=== PATIENT | female | born 1990 | race Caucasian/White ===

== ENCOUNTER 2018-05-18 11:20 | Outpatient (REF) | payer SELFPAY ==
[2018-05-19 10:15] LABS: HBs Antibody, Quant 10.9 mIU/mL; Hepatitis B Surface Ab Positive
[2018-05-19 11:31] LABS: Rubella IgG Ab (UVM) Positive; Varicella IgG Antibody Negative
[2018-05-19 12:32] LABS: Measles IgG Antibody Positive; Mumps Antibody IgG Positive (Negative)
[2018-05-20 14:17] LABS: TB Interpretation Negative (NEGAT)
== END 2018-05-18 11:40 ==
LOC: LBO 11:20
PROVIDERS: PCP Nurse Practitioner Family
DX: Z02.1 Encounter for pre-employment examination (principal); Z01.84 Encounter for antibody response examination
CPT/HCPCS: 36415; 86706; 86787; 86480; 86735; 86762; 86765

== ENCOUNTER 2018-05-25 17:50 | Emergency (ER) | payer MEDICAID, SELFPAY ==
[2018-05-25 18:12] VITALS: BP 123/84; PULSE 72; RESP 14; TEMP 36.9; O2SAT 99
[2018-05-25 18:35] LABS: Bilirubin Negative (Negative); Blood Small (Negative); Clarity Clear; Glucose Negative (Negative); Ketones Negative (Negative); Leukocyte Esterase Negative (Negative); Nitrite Negative (Negative); Specific Gravity 1.025 (1.005-1.025); Urobilinogen 0.2 EU/dL (Up TO 0.2)
[2018-05-25 18:42] LABS: Bacteria Rare HPF (Negative); C & S Indicated? No; Casts Negative LPF (Negative); Crystals Negative HPF (Negative); Epithelial Cells Rare HPF (Negative); Mucus Negative (Negative); Other Cells Negative (Negative); RBC 0-2 (0-2); WBC 0-2 HPF (0-5)
--- NOTE | 2018-05-25 19:20 | DI.CT_ITS ---
SYMPTOM/DIAGNOSIS: RLQ PAIN ABDOMEN AND PELVIC CT: No priors for comparison. The visualized lung bases are clear. The liver is normal in size. There is a 1.5 cm. hypodense lesion in the left lobe of the liver. It is nonspecific. This may represent a cyst. Follow up on a non emergent basis is recommended. No other hepatic lesions are seen. The portal and superior mesenteric veins are patent. The gallbladder is negative. No biliary ductal dilatation is seen. The pancreas, spleen and adrenal glands are unremarkable. The kidneys show normal and symmetric enhancement. No evidence of a solid renal mass or obstruction is present. The urinary bladder is intact. The reproductive organs are unremarkable. The abdominal aorta is of normal caliber. No significant abdominal or pelvic adenopathy, ascites or pneumoperitoneum is present. Incidental note is made of a retro-aortic left renal vein. The bowel is unremarkable. There is a normal appendix present. Degenerative changes are seen in the spine. IMPRESSION: No evidence of an acute abdomen.
--- NOTE | 2018-05-25 19:36 | W.ED.GENAD ---
Discharge Plan Disposition Patient Disposition: HOME Condition: Good Discharge Details Chief Complaint: Abd Prob Clinical Impression: Abdominal pain Primary Care Provider: Estefani Gray ED Provider: rC Linder Home Meds and New Rx's Prescriptions: Continue multivitamin [Daily Multi-Vitamin] 1 EACH tablet 1 ea PO DAILY RF: 0 omega 3-fbo-dsl-fish oil [Fish Oil] 1 EACH capsule,delayed release(DR/EC) 1 ea PO DAILY RF: 0 lactobacillus combo no.11 [Probiotic] 1 EACH capsule, sprinkle 1 ea PO DAILY RF: 0 Discharge Instructions Instructions: Abdominal Pain (ED) Additional Instructions: He may utilize ndcf-ogm-djtunyt pain medication as needed for discomfort. Given CT findings suggestive of possible moderate stool burden it is recommended that you use sfip-brc-dxgacvd Metamucil and/or stool softener/laxatives as needed to see if this helps with your symptoms. Referrals: Estefani Gray, FRONT OFFICE ASSOCIATE [Primary Care Provider] - (Follow-up with your primary care provider as needed for reassessment or if not improving over the next week) Medical Decision Making Patient presenting to the emergency department for right lower quadrant pain. Patient states pain started this morning. She does state that she was lifting moving things this weekend but this morning started noticing some bloating and discomfort with pain to touch of right lower quadrant. Patient has associated symptom of nausea but otherwise denies any other medical complaint. Physical exam is positive for right lower quadrant tenderness otherwise exam is unremarkable. Plan to check labs and CT image. Patient denies any need of medication at this time. Review of labs is unremarkable and show no significant leukocytosis and otherwise nondiagnostic findings. Review of CT imaging shows no evidence for acute appendicitis, no bowel obstruction or perforation, no intra-abdominal pathology is noted per radiologist findings. Upon my review there does seem to be a moderate stool burden, especially in the right lower quadrant, but I agree with no signs of obstruction. Discussed with patient use of stool softeners, mild gentle laxatives, and daily Metamucil to see if this helps resolve her symptoms. Otherwise she was encouraged to use kdxw-xdi-ezfupso pain medication as needed for any further discomfort. Patient to return for any new or worsening symptoms. After discussion of diagnosis and plan of care patient has no further needs, questions, or concerns and states clear understanding to return to the emergency department for any worsening symptoms. Lab Data Lab results reviewed: Yes I reviewed the patient's lab results. HPI General Mode of arrival: ambulatory. Date/Time Provider Initiated Documentation: 05/25/18 18:47. Limitations to Documentation: no limitations. Information obtained by: patient and RN notes reviewed. History of Present Illness 27 year old F presents to the emergency department with the chief complaint of Abd pain, with intensity rated at 2. Quality is described as aching, and is localized to the abdomen and right. Patient started experiencing this hour(s) (10) and it has been constant. No relieving factors improve symptom(s), No exacerbating factors reported . Patient did receive the following treatments prior to arrival, none Related Data Home Medications Medication Instructions Recorded Confirmed lactobacillus combo no.11 1 ea PO DAILY cap.sprink 10/13/17 05/25/18 [Probiotic] multivitamin [Daily Multi-Vitamin] 1 ea PO DAILY 10/13/17 05/25/18 omega 5-tyg-bxj-fish oil [Fish Oil] 1 ea PO DAILY 10/13/17 05/25/18 Allergies Allergy/AdvReac Type Severity Reaction Status Date / Time erythromycin base Allergy Unknown Skin Rash Unverified 05/25/18 18:18 latex Allergy Unknown Skin Rash Unverified 05/25/18 18:18 penicillin G Allergy Unknown Skin Rash Unverified 05/25/18 18:18 General Stated Complaint: Abd Prob ROSALES: 3 Review of Systems Constitutional Denies chills, Denies fever(s) and Denies malaise Cardiovascular Denies chest pain Respiratory Denies cough Gastrointestinal Reports as per HPI, Reports abdominal pain, Denies diarrhea, Reports nausea and Denies vomiting Genitourinary Denies urinary frequency, Denies dysuria, Denies pelvic pain and Denies vaginal discharge PFSH Family History Mother Diabetes Kidney disease Father Substance abuse Gout Colon polyps Grandmother Diabetes Other COPD (chronic obstructive pulmonary disease) Medical History IFG (impaired fasting glucose) (Chronic 10/30/17) ADHD (attention deficit hyperactivity disorder) Depression Kidney stone Lyme disease Social History Smoking/Tobacco Use Status: Never Surgical History Tonsillectomy and adenoidectomy Exam Const General: cooperative, healthy appearing, comfortable, no acute distress and not ill appearing Orientation: alert, awake and oriented x3 Resp Effort & Inspection: normal respiratory effort and able to speak in complete sentences Auscultation: clear to auscultation bilaterally Cardio Rate: regular rate Rhythm: regular rhythm Heart Sounds: S1 normal and S2 normal GI Inspection: normal to inspection Palpation: soft, no hepatosplenomegaly, not firm, no guarding, no masses, no pulsatile masses, not rigid, no splenomegaly and tender in the RLQ, at McBurney's point and suprapubicly; Madrigal's sign negative, psoas sign negative and Rovsing's sign negative Auscultation: normal bowel sounds Back/Spine/Pelvis Back: no CVA tenderness Neuro General: alert, awake, oriented x3, gait normal and moves all extremities Course Vital Signs Temperature 36.9 C 05/25/18 18:12 Pulse 72 05/25/18 18:12 Respiratory Rate 14 05/25/18 18:12 Blood Pressure 123/84 05/25/18 18:12 Pulse Oximetry 99 05/25/18 18:12 Temperature 36.9 C 05/25/18 18:12 Temperature Source Skin 05/25/18 18:12 Pulse 72 05/25/18 18:12 Respiratory Rate 14 05/25/18 18:12 Respiratory Effort Non-Labored 05/25/18 18:30 Blood Pressure 123/84 05/25/18 18:12 Blood Pressure Position Sitting 05/25/18 18:12 Pulse Oximetry 99 05/25/18 18:12 Oxygen Delivery Method Room Air 05/25/18 18:12 Oxygen Flow Rate 0 05/25/18 18:12 Pain Level 3 05/25/18 18:12 Lab/Test Results Lab/Test Results: Laboratory Tests Range/Units 05/25/18 18:25 Urine Color (Yellow) Yellow Urine Clarity Clear Urine pH (5-8) 7.0 Ur Specific [place] (1.005-1.025) 1.025 Urine Protein (Negative) mg/dL Negative Urine Ketones (Negative) mg/dL Negative Urine Blood (Negative) Small H Urine Nitrite (Negative) Negative Urine Bilirubin (Negative) Negative Urine Urobilinogen (Up TO 0.2) EU/dL 0.2 Ur Leukocyte Esterase (Negative) Negative Urine RBC (0-2) 0-2 Urine WBC (0-5) HPF 0-2 Ur Epithelial Cells (Negative) HPF Rare Urine Crystals (Negative) HPF Negative Urine Bacteria (Negative) HPF Rare Urine Casts (Negative) LPF Negative Urine Mucus (Negative) Negative Urine Other (Negative) Negative Ur Culture Indicated? No Urine Glucose (Negative) mg/dL Negative POC- Test(urine) Negative
--- NOTE | 2018-05-25 19:39 | ED.GENADUL_ITS ---
Discharge Plan Disposition Patient Disposition: HOME Condition: Good Discharge Details Chief Complaint: Abd Prob Clinical Impression: Abdominal pain Primary Care Provider: Estefani Gray ED Provider: Cr Linder Home Meds and New Rx's Prescriptions: Continue multivitamin [Daily Multi-Vitamin] 1 EACH tablet 1 ea PO DAILY RF: 0 omega 6-tcd-nnn-fish oil [Fish Oil] 1 EACH capsule,delayed release(DR/EC) 1 ea PO DAILY RF: 0 lactobacillus combo no.11 [Probiotic] 1 EACH capsule, sprinkle 1 ea PO DAILY RF: 0 Discharge Instructions Instructions: Abdominal Pain (ED) Additional Instructions: He may utilize nxge-vkp-tmmftlm pain medication as needed for discomfort. Given CT findings suggestive of possible moderate stool burden it is recommended that you use vply-vps-bxbihrz Metamucil and/or stool softener/ laxatives as needed to see if this helps with your symptoms. Referrals: Estefani Gray, RECREATIONAL THERAPY TECHNICIAN [Primary Care Provider] - (Follow-up with your primary care provider as needed for reassessment or if not improving over the next week) Medical Decision Making Patient presenting to the emergency department for right lower quadrant pain. Patient states pain started this morning. She does state that she was lifting moving things this weekend but this morning started noticing some bloating and discomfort with pain to touch of right lower quadrant. Patient has associated symptom of nausea but otherwise denies any other medical complaint. Physical exam is positive for right lower quadrant tenderness otherwise exam is unremarkable. Plan to check labs and CT image. Patient denies any need of medication at this time. Review of labs is unremarkable and show no significant leukocytosis and otherwise nondiagnostic findings. Review of CT imaging shows no evidence for acute appendicitis, no bowel obstruction or perforation, no intra-abdominal pathology is noted per radiologist findings. Upon my review there does seem to be a moderate stool burden, especially in the right lower quadrant, but I agree with no signs of obstruction. Discussed with patient use of stool softeners, mild gentle laxatives, and daily Metamucil to see if this helps resolve her symptoms. Otherwise she was encouraged to use rmto-mbm-snvsjcn pain medication as needed for any further discomfort. Patient to return for any new or worsening symptoms. After discussion of diagnosis and plan of care patient has no further needs, questions, or concerns and states clear understanding to return to the emergency department for any worsening symptoms. Lab Data Lab results reviewed: Yes I reviewed the patient's lab results. HPI General Mode of arrival: ambulatory . Date/Time Provider Initiated Documentation: 05/25/18 18:47 . Limitations to Documentation: no limitations . Information obtained by: patient and RN notes reviewed . History of Present Illness 27 year old F presents to the emergency department with the chief complaint of Abd pain, with intensity rated at 2. Quality is described as aching, and is localized to the abdomen and right. Patient started experiencing this hour( s) (10) and it has been constant. No relieving factors improve symptom(s), No exacerbating factors reported . Patient did receive the following treatments prior to arrival, none Related Data Home Medications Medication Instructions Recorded Confirmed lactobacillus combo no.11 1 ea PO DAILY cap.sprink 10/13/17 05/25/18 [Probiotic] multivitamin [Daily Multi-Vitamin] 1 ea PO DAILY 10/13/17 05/25/18 omega 6-nlc-gnh-fish oil [Fish Oil] 1 ea PO DAILY 10/13/17 05/25/18 Allergies Allergy/AdvReac Type Severity Reaction Status Date / Time erythromycin base Allergy Unknown Skin Rash Unverified 05/25/18 18:18 latex Allergy Unknown Skin Rash Unverified 05/25/18 18:18 penicillin G Allergy Unknown Skin Rash Unverified 05/25/18 18:18 General Stated Complaint: Abd Prob ROSALES: 3 Review of Systems Constitutional Denies chills, Denies fever(s) and Denies malaise Cardiovascular Denies chest pain Respiratory Denies cough Gastrointestinal Reports as per HPI, Reports abdominal pain, Denies diarrhea, Reports nausea and Denies vomiting Genitourinary Denies urinary frequency, Denies dysuria, Denies pelvic pain and Denies vaginal discharge PFSH Family History Mother Diabetes Kidney disease Father Substance abuse Gout Colon polyps Grandmother Diabetes Other COPD (chronic obstructive pulmonary disease) Medical History IFG (impaired fasting glucose) (Chronic 10/30/17) ADHD (attention deficit hyperactivity disorder) Depression Kidney stone Lyme disease Social History Smoking/Tobacco Use Status: Never Surgical History Tonsillectomy and adenoidectomy Exam Const General: cooperative, healthy appearing, comfortable, no acute distress and not ill appearing Orientation: alert, awake and oriented x3 Resp Effort & Inspection: normal respiratory effort and able to speak in complete sentences Auscultation: clear to auscultation bilaterally Cardio Rate: regular rate Rhythm: regular rhythm Heart Sounds: S1 normal and S2 normal GI Inspection: normal to inspection Palpation: soft, no hepatosplenomegaly, not firm, no guarding, no masses, no pulsatile masses, not rigid, no splenomegaly and tender in the RLQ, at McBurney' s point and suprapubicly; Madrigal's sign negative, psoas sign negative and Rovsing's sign negative Auscultation: normal bowel sounds Back/Spine/Pelvis Back: no CVA tenderness Neuro General: alert, awake, oriented x3, gait normal and moves all extremities Course Vital Signs Temperature 36.9 C 05/25/18 18:12 Pulse 72 05/25/18 18:12 Respiratory Rate 14 05/25/18 18:12 Blood Pressure 123/84 05/25/18 18:12 Pulse Oximetry 99 05/25/18 18:12 Temperature 36.9 C 05/25/18 18:12 Temperature Source Skin 05/25/18 18:12 Pulse 72 05/25/18 18:12 Respiratory Rate 14 05/25/18 18:12 Respiratory Effort Non-Labored 05/25/18 18:30 Blood Pressure 123/84 05/25/18 18:12 Blood Pressure Position Sitting 05/25/18 18:12 Pulse Oximetry 99 05/25/18 18:12 Oxygen Delivery Method Room Air 05/25/18 18:12 Oxygen Flow Rate 0 05/25/18 18:12 Pain Level 3 05/25/18 18:12 Lab/Test Results Lab/Test Results: Laboratory Tests Range/Units 05/25/18 18:25 Urine Color (Yellow) Yellow Urine Clarity Clear Urine pH (5-8) 7.0 Ur Specific [place] (1.005-1.025) 1.025 Urine Protein (Negative) mg/dL Negative Urine Ketones (Negative) mg/dL Negative Urine Blood (Negative) Small H Urine Nitrite (Negative) Negative Urine Bilirubin (Negative) Negative Urine Urobilinogen (Up TO 0.2) EU/dL 0.2 Ur Leukocyte Esterase (Negative) Negative Urine RBC (0-2) 0-2 Urine WBC (0-5) HPF 0-2 Ur Epithelial Cells (Negative) HPF Rare Urine Crystals (Negative) HPF Negative Urine Bacteria (Negative) HPF Rare Urine Casts (Negative) LPF Negative Urine Mucus (Negative) Negative Urine Other (Negative) Negative Ur Culture Indicated? No Urine Glucose (Negative) mg/dL Negative POC- Test(urine) Negative
[2018-05-25 19:45] LABS: Abs Immature Grans 0.02 k/cumm (0.0-0.09); Absolute Basophil Count 0.05 k/cumm (0.0-0.2); Absolute Eosinophil Count 0.25 k/cumm (0.0-0.7); Absolute Lymphocyte Count 2.97 k/cumm (1.2-3.4); Absolute Monocyte Count 0.61 k/cumm (0.11-0.7); Absolute Neutrophil Count 4.77 k/cumm (1.2-6.7); Basophils % 0.6; Eosinophils % 2.9; HCT 40.2 % (36.0-46.0); HGB 13.7 g/dL (12.0-15.5); Immature Grans % 0.2; Lymphocytes % 34.3; Mean Corp. HGB Concentration 34.1 g/dL (32.0-36.0); Mean Corpuscular Hemoglobin 30.3 pg (27.0-33.0); Mean Corpuscular Volume 88.9 fL (80-95); Mean Platelet Volume 11.6 fL (8.0-11.0); Platelet Count 248 x1000/uL (130-400); RBC 4.52 m/cumm (4.00-5.20); RBC Distribution Width 13.8 % (11.7-14.6); White Blood Cell Count 8.67 k/cumm (4.4-10.8)
[2018-05-25] MEDS: Omnipaque 350 MG/ML 100 ML BTL IJ (19:58)
[2018-05-25 20:08] LABS: ALT 26 U/L (12-78); AST 14 U/L (15-37); Albumin 3.7 g/dL (3.4-5.0); Alkaline Phosphatase 90 U/L (46-116); Anion Gap 6.3 mmol/L (3-11); BUN 15 mg/dL (7-18); Bilirubin, Total 0.3 mg/dL (0.2-1.0); CO2 30.7 mmol/L (21.0-32.0); CREATININE 0.91 mg/dL (0.55-1.02); Calcium 9.5 mg/dL (8.5-10.1); Chloride 103 mmol/L (98-107); Glucose 86 mg/dL (70-100); Lipase 91 U/L (73-393); Sodium 140 mmol/L (136-145); Total Protein 7.3 g/dL (6.4-8.2)
--- NOTE | 2018-05-25 20:54 | DI.VRAD_ITS ---
EXAM: CT Abdomen and Pelvis With Intravenous Contrast EXAM DATE/TIME: 05/25/2018 7:22 PM CLINICAL HISTORY: 27 years old, female; Pain; Abdominal pain; Localized; Right lower quadrant (rlq); Patient HX: Rlq pain TECHNIQUE: Axial computed tomography images of the abdomen and pelvis with intravenous contrast. Coronal and sagittal reformatted images were created and reviewed. COMPARISON: No relevant prior studies available. FINDINGS: Lower thorax: No acute findings. ABDOMEN: Liver: A hypodense lesion within the left hepatic lobe, 9 mm in diameter, possibly cysts. Gallbladder and bile ducts: No calcified stones. No ductal dilation. Pancreas: Unremarkable. No ductal dilation. Spleen: Unremarkable. No splenomegaly. Adrenals: Unremarkable. No mass. Kidneys and ureters: Unremarkable. No hydronephrosis. Stomach and bowel: The bowel is not opacified by oral contrast, evaluation is limited. Appendix: No evidence of appendicitis. PELVIS: Bladder: Unremarkable as visualized. Reproductive: Unremarkable as visualized. ABDOMEN and PELVIS: Intraperitoneal space: No free air. No significant fluid collection. Bones/joints: Degenerative changes within thoracic spine. Degenerative changes within lumbar spine with superior endplate deformities within L3 and L4 vertebral bodies. Soft tissues: The abdomen is obese. Vasculature: No abdominal aortic aneurysm. Lymph nodes: No enlarged lymph nodes. IMPRESSION: No evidence for acute appendicitis. No evidence for bowel obstruction or perforation. No acute intra-abdominal pathology identified. Dictated and Authenticated by: Merritt Walden MD. Ordering:RUBI FLOREZ MD
[2018-05-25 21:19] VITALS: BP 130/88; PULSE 66; RESP 16; TEMP 36.7; O2SAT 100
== END 2018-05-25 21:24 | disposition home or self-care (01) ==
PROVIDERS: Emergency Provider Nurse Practitioner Family; PCP Nurse Practitioner Family
DX: R10.31 Right lower quadrant pain (principal); R11.0 Nausea; R73.01 Impaired fasting glucose
CPT/HCPCS: 36415; 80053; 81025; 83690; 99285; 74177; 81003; 81015; 85025; 99284; J3490

== ENCOUNTER 2019-01-15 09:34 | Outpatient (CLI) | payer OTHER, SELFPAY ==
[2019-01-15 11:55] LABS: ALT 56 U/L (12-78); AST 29 U/L (15-37); Alkaline Phosphatase 89 U/L (46-116); Anion Gap 10.7 mmol/L (3-11); BUN 12 mg/dL (7-18); Bilirubin, Total 0.5 mg/dL (0.2-1.0); CO2 26.3 mmol/L (21.0-32.0); CREATININE 0.79 mg/dL (0.55-1.02); Calcium 9.4 mg/dL (8.5-10.1); Chloride 104 mmol/L (98-107); FREE T4 1.12 ng/dL (0.76-1.46); Glucose 94 mg/dL (70-100); Potassium 4.1 mmol/L (3.5-5.1); Sodium 141 mmol/L (136-145); TSH 0.24 uIU/mL (0.358-3.74); Total Protein 7.3 g/dL (6.4-8.2)
[2019-01-18 16:07] LABS: Vitamin D 25 Total 33.5 ng/ml (30-100)
[2019-01-18 16:10] LABS: Vitamin B12 321 pg/mL (193-986)
== END 2019-01-15 09:54 ==
PROVIDERS: PCP Nurse Practitioner Family; Visit Provider Nurse Practitioner Family
DX: R29.810 Facial weakness (principal); F32.9 Major depressive disorder, single episode, unspecified
CPT/HCPCS: 36415; 80053; 82306; 82607; 83519; 84439; 84443

== ENCOUNTER 2019-01-19 01:48 | Outpatient (CLI) | payer OTHER, SELFPAY ==
[2019-01-19 13:28] LABS: FREE T4 1.23 ng/dL (0.76-1.46)
== END 2019-01-19 02:08 ==
PROVIDERS: PCP Nurse Practitioner Family; Visit Provider Nurse Practitioner Family
DX: R79.89 Other specified abnormal findings of blood chemistry (principal); Z86.39 Personal history of other endocrine, nutritional and metabolic disease; R29.810 Facial weakness
CPT/HCPCS: 36415; 82607; 84439; 84443; 84481

== ENCOUNTER 2019-01-26 02:02 | Outpatient (CLI) | payer OTHER, SELFPAY ==
[2019-01-26 07:56] LABS: HCT 40.4 % (36.0-46.0); HGB 13.9 g/dL (12.0-15.5); Mean Corp. HGB Concentration 34.4 g/dL (32.0-36.0); Mean Corpuscular Hemoglobin 30.5 pg (27.0-33.0); Mean Corpuscular Volume 88.6 fL (80-95); Mean Platelet Volume 11.4 fL (8.0-11.0); Platelet Count 240 x1000/uL (130-400); RBC 4.56 m/cumm (4.00-5.20); White Blood Cell Count 8.96 k/cumm (4.4-10.8)
[2019-01-26 08:41] LABS: ESR 10 MM/HR (0-20)
[2019-01-27 11:54] LABS: Lyme Ab w Rflx to Lyme Confirm Negative
[2019-01-27 18:21] LABS: HSV 1 PCR, Blood Negative (Negative); HSV 2 PCR, Blood Negative (Negative)
== END 2019-01-26 02:22 ==
PROVIDERS: PCP Nurse Practitioner Family; Visit Provider Family Medicine
DX: G51.9 Disorder of facial nerve, unspecified (principal); R53.1 Weakness
CPT/HCPCS: 36415; 85027; 85652; 87529; 86618

== ENCOUNTER 2019-02-04 01:03 | Outpatient (CLI) | payer OTHER, SELFPAY ==
[2019-02-04] MEDS: Normal Saline Flush 10 ML SYR IVP (14:51)
[2019-02-04] MEDS: Gadoterate meglumine 20 ML VIAL 16 ML IVP (14:52)
--- NOTE | 2019-02-04 15:32 | DI.MRI_ITS ---
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 Axial and coronal thin slices through the brainstem were also obtained prior to and following contrast administration. No mass lesion or enhancing lesion is seen in the brain. Ventricular system is normal in appearance. No signal abnormality is identified. Diffusion weighted imaging is within normal limits. Orbital and temporal bone structures appear intact. There is normal flow void in the [place] vasculature. IMPRESSION: Negative brain MRI.
== END 2019-02-04 01:23 ==
PROVIDERS: PCP Nurse Practitioner Family; Visit Provider Family Medicine
DX: G52.9 Cranial nerve disorder, unspecified (principal); G51.0 Bell's palsy
CPT/HCPCS: 70553

== ENCOUNTER 2019-03-13 00:26 | Outpatient (CLI) | payer OTHER, SELFPAY ==
[2019-03-15 11:40] LABS: Lyme Ab w Rflx to Lyme Confirm Negative
[2019-03-15 15:50] LABS: ANA Interpretation Positive (NEGAT); ANA Titer Pattern 1:320 Speckled
[2019-03-16 12:40] LABS: SS-A Antibody 1.8 Units (<20); SS-B (La) Ab, IgG 2.3 Units (<20)
[2019-03-16 17:16] LABS: Anaplasma phagocytophilum Negative (Negative); B. miyamotoi PCR Negative (Negative); Babesia divergens/MO-1 Negative (Negative); Babesia duncani Negative (Negative); Babesia microti Negative (Negative); Ehrlichia chaffeensis Negative (Negative); Ehrlichia ewingii/canis Negative (Negative); Ehrlichia muris eauclairensis Negative (Negative)
== END 2019-03-13 00:46 ==
PROVIDERS: PCP Nurse Practitioner Family; Visit Provider Nurse Practitioner Family
DX: G51.0 Bell's palsy (principal); R29.810 Facial weakness
CPT/HCPCS: 36415; 87798; 86038; 86235; 86618

== ENCOUNTER 2019-03-26 02:41 | Outpatient (CLI) | payer OTHER, SELFPAY ==
[2019-03-29 11:05] LABS: Rheumatoid Factor 10 IU/mL (<12.5)
[2019-03-30 10:43] LABS: dsDNA Ab, IgG <12.3 IU/mL (<30)
[2019-03-30 10:47] LABS: Sm (Smith) Ab, IgG 2.4 Units (<20)
== END 2019-03-26 03:01 ==
PROVIDERS: PCP Nurse Practitioner Family; Visit Provider Nurse Practitioner Family
DX: R76.8 Other specified abnormal immunological findings in serum (principal)
CPT/HCPCS: 36415; 86225; 86235; 86431

== ENCOUNTER 2019-04-14 02:31 | Outpatient (CLI) | payer OTHER, SELFPAY ==
[2019-04-15 12:12] LABS: SS-B (La) Ab, IgG 2.3 Units (<20)
== END 2019-04-14 02:51 ==
PROVIDERS: PCP Nurse Practitioner Family; Visit Provider Otolaryngology Otolaryngology/Facial Plastic Surgery
DX: R13.12 Dysphagia, oropharyngeal phase (principal); R05 Cough; H04.123 Dry eye syndrome of bilateral lacrimal glands
CPT/HCPCS: 36415; 86235

== ENCOUNTER 2019-05-04 07:57 | Outpatient (CLI) | payer OTHER, SELFPAY ==
[2019-05-04 13:23] LABS: Creatine Kinase 52 U/L (26-192)
[2019-05-05 13:09] LABS: IgA 183 mg/dL (85-499); Interpretation SEE COMMENTS; Tissue Transglutaminase IgA 5.2 U/mL (<4.0)
[2019-05-21 09:08] LABS: Misc Referral (MAYO) See Comments
== END 2019-05-04 08:17 ==
PROVIDERS: PCP Nurse Practitioner Family; Visit Provider Nurse Practitioner Family
DX: R13.10 Dysphagia, unspecified (principal)
CPT/HCPCS: 36415; 82550; 82784; 83516; 83520; 86235

== ENCOUNTER 2019-05-07 00:18 | Outpatient (CLI) | payer OTHER, SELFPAY ==
--- NOTE | 2019-05-07 11:00 | DI.RAD_ITS ---
EXAM: XR CHEST 2V PA LATERAL INDICATION: R13.10 DYSPHAGIA. COMPARISON: CHEST 2 VIEWS PA,LAT from 12/10/2017 TECHNIQUE: 2D digital imaging was performed. FINDINGS: The lungs are well expanded and free of infiltrate. There is no evidence of a pleural effusion. The heart is not enlarged. The hilar structures mediastinum and tracheal air column are intact. IMPRESSION: No evidence of acute cardiopulmonary disease.
== END 2019-05-07 00:38 ==
PROVIDERS: PCP Nurse Practitioner Family; Visit Provider Nurse Practitioner Family
DX: R13.10 Dysphagia, unspecified (principal)
CPT/HCPCS: 71046

== ENCOUNTER 2019-05-27 11:47 | Outpatient (CLI) | payer OTHER, SELFPAY ==
--- NOTE | 2019-05-27 12:05 | NUR.NOTE ---
Addendum entered by Yadira Galdamez RN 05/27/19 13:31: 1331 Pt is resting in supine postiton. Spinal fluid was clear. Will monitor vitals for another 1/2 hour. Addendum entered by Yadira Galdamez RN 05/27/19 13:01: 1300 Leticia Dumont administers an MKO melt to help with anxiety. Pt's vital signs are HR 105, RR 21, O2 98% on room air, 149/106. Pt had a difficult time with the first two attempts of the lumbar puncture. Pt will be monitored during and after and documented under vital signs. Original Note: 05/27/19 1205 Pt brought in and med reconcilliation done. Pt to have LP with Leticia Julia RNA. Pt notes that she got bit by a tick last night and there is still a red spot under her right axillary area. Nursing Note:
[2019-05-27] MEDS: Midazolam/Ketamine/Ondansetron (3/25/2MG) 1 TAB 1 EACH SL (13:00)
[2019-05-27 13:07] VITALS: BP 149/79; PULSE 85; RESP 13; O2SAT 99
--- NOTE | 2019-05-27 13:25 | PAPNONF_PTH ---
PATIENT: Ele Kimble LOC: [facility] U#:[id number] AGE/SX: 28/F ROOM: RE05/27/[address]: Leticia Purvis CRNA : 1990 BED: DIS: 05/27/2019 SPEC #: [id number] RECD: 05/27/19 16:02 STATUS: CARLEE REYolie #: [id number] CIERRA: 05/27/19 13:[address]: Leticia Purvis DEPT: [facility] Cytology RECD BY: Jenny Dale ENTERED: 05/27/19 16:04 SP TYPE: DARELL BLANCO DR: TARAS Boyer Tissues: 1 - BODY FLUID CYTO(NOT S/U/N/EM)[facility] Procedures: BODY FLUID CYTO(NOT SPU/UR/NIP/ENDOM)[facility] Comments: [id number] (TOTAL VOLUME = 3 ml's) (SENT FRESH)
[2019-05-27 13:26] VITALS: BP 116/71; PULSE 89; RESP 18; TEMP 37.4; O2SAT 100
[2019-05-27 13:41] VITALS: BP 136/76; PULSE 69; RESP 15; TEMP 37.1; O2SAT 100
[2019-05-27 13:55] VITALS: BP 121/79; PULSE 75; RESP 20; TEMP 37.1; O2SAT 98
== END 2019-05-27 12:07 ==
PROVIDERS: PCP Nurse Practitioner Family; Visit Provider Student in an Organized Health Care Education/Training Program
DX: G51.2 Melkersson's syndrome (principal); R29.810 Facial weakness; R13.10 Dysphagia, unspecified
CPT/HCPCS: 62270; 88104

== ENCOUNTER 2019-05-27 13:41 | Outpatient (REF) | payer OTHER, SELFPAY ==
[2019-05-27 14:44] LABS: Clarity Clear; RBC 99 /mm3 (0-5); Tube # 4; WBC 2 /mm3 (0-5); Xanthochromia Absent
[2019-05-27 14:48] LABS: RBC Tube#1 CSF 1450 /mm3 (0-5)
[2019-05-27 15:30] LABS: Glucose (CSF) 58 mg/dL (40-70); Total Protein (CSF) 24 mg/dL (15-45)
[2019-05-28 14:56] LABS: Albumin, CSF 13.7 mg/dl (<25.1); Albumin, S 4.8 g/dl (3.4-4.9); IgG Index, CSF 0.77 Index; IgG, CSF 1.92 mg/dl (0.0-5.50); IgG/Albumin, CSF 0.14 Ratio; Synthesis Rate, CSF 0.56 mg/24hrs
[2019-05-28 17:09] LABS: VDRL, CSF Negative (Negative)
[2019-05-29 16:53] LABS: CSF Bands 4 bands; CSF Olig Bands Interpretation 0 bands (<4); Serum Bands 4 bands
[2019-05-29 18:21] LABS: Specimen Source CSF
[2019-06-08 13:04] LABS: IgG, S 874 mg/dL
== END 2019-05-27 14:01 ==
LOC: LBN 13:41
PROVIDERS: PCP Nurse Practitioner Family; Visit Provider Otolaryngology Otolaryngology/Facial Plastic Surgery
DX: G51.2 Melkersson's syndrome (principal); R29.810 Facial weakness; R47.1 Dysarthria and anarthria
CPT/HCPCS: 82945; 89050; 89051; 81373; 82040; 82042; 82784; 83916; 84157; 86592; 87070; 87205; 87476

== ENCOUNTER 2019-05-29 13:53 | Emergency (ER) | payer OTHER, SELFPAY ==
[2019-05-29 13:57] VITALS: BP 106/73; PULSE 72; RESP 16; TEMP 36.7; O2SAT 96
--- NOTE | 2019-05-29 13:58 | ED.GENADUL_ITS ---
Discharge Plan Disposition Patient Disposition: HOME Condition: Improving Discharge Details Chief Complaint: Headache Clinical Impression: Headache Primary Care Provider: Princess Moses ED Provider: Nba Teran Home Meds and New Rx's Prescriptions: Continued cholecalciferol (vitamin D3) 4,000 unit capsule 4,000 unit PO DAILY RF: 0 omega-3 fatty acids [Fish Oil Concentrate] 1,000 mg capsule 5,000 mg PO DAILY RF: 0 vitamin B complex [B Complex 1] Tablet 1 tab PO DAILY RF: 0 dextroamphetamine-amphetamine 30 mg capsule,extended release 24hr 30 mg PO DAILY MDD 30mg Qty: 31 RF: 0 prednisone 20 mg tablet 60 mg PO DAILY Qty: 21 RF: 0 Discharge Instructions Instructions: General Headache (ED) Additional Instructions: Home to rest today. Continue small, frequent sips of fluids to maintain hydration. Do not exert yourself heavily. Return to the emergency department for any acute concern. Medical Decision Making 28-year-old female who had outpatient lumbar puncture performed on May 27. She is had a headache that is worse with rising to a standing position since that time. She has not had a fever or vomiting. Her neurologic exam is unremarkable. Probable post dural puncture leak and post LP headache. Given 1 L fluid bolus and IV caffeine. Discussed with anesthesia and patient seen in consultation. By the time of arrival of anesthesia consult, patient with no persistent headache, improved and requesting DC prior to procedure. HPI General Mode of arrival: ambulatory . Date/Time Provider Initiated Documentation: 05/29/19 13:55 . Limitations to Documentation: no limitations . Information obtained by: patient . History of Present Illness 28 year old F presents to the emergency department with the chief complaint of Headache after LP yesterday., described as moderate, Quality is described as dull, Patient reports no radiation. Patient started experiencing this hour(s) and it has been constant. Patient notes no other symptoms.. Patient did receive the following treatments prior to arrival, none Related Data Home Medications Medication Instructions Recorded Confirmed cholecalciferol (vitamin D3) 4,000 4,000 unit PO DAILY 01/01/19 05/29/19 unit capsule omega-3 fatty acids 1,000 mg 5,000 mg PO DAILY cap 02/23/19 05/29/19 capsule vitamin B complex 1 tab PO DAILY 03/22/19 05/29/19 dextroamphetamine-amphetamine ER 30 mg PO DAILY #31 cap MDD 30mg 05/10/19 05/29/19 30 mg 24hr capsule,extend release prednisone 20 mg tablet 60 mg PO DAILY #21 tab 05/10/19 05/29/19 Previous Rx's Medication Instructions Recorded dextroamphetamine-amphetamine ER 30 mg PO DAILY #31 cap MDD 30mg 05/10/19 30 mg 24hr capsule,extend release prednisone 20 mg tablet 60 mg PO DAILY #21 tab 05/10/19 Allergies Allergy/AdvReac Type Severity Reaction Status Date / Time erythromycin base Allergy Unknown Skin Rash Verified 05/29/19 14:02 latex Allergy Unknown Skin Rash Verified 05/29/19 14:02 penicillin G Allergy Unknown Skin Rash Verified 05/29/19 14:02 General ROSALES: 3 Review of Systems Narrative: no fever, no vomiting. 4 systems reviewed and otherwise negative. FORMERLY [facility], [facility] Medical History ADHD (attention deficit hyperactivity disorder) (Chronic) Depressive disorder (Chronic) Generalized anxiety disorder (Chronic) Kidney stone (Resolved) Lagophthalmos (Chronic) Lyme disease (Resolved) Melkersson-Bao syndrome (Acute) Nasolacrimal duct obstruction, bilateral (Chronic) Oropharyngeal dysphagia (Chronic) Vitamin D deficiency (Resolved) Surgical History S/P eye surgery (Inactive 01/14/19) Surgery for nasolacrimal duct obstruction S/P tonsillectomy and adenoidectomy (Inactive) Family History Mother Kidney disease S/p kidney transplant Type 1 diabetes mellitus Hypertension Father Gout Colon polyps Alcohol abuse Maternal Grandfather No problems noted. 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 Pleasant, well groomed, interactive. HEAD: Normocephalic, atraumatic ENT: Mucous membranes moist, oropharynx unremarkable, External ear exam unremarkable EYES: PERRL, EOMI NECK: Full ROM, no LUIS ALBERTO, no menigismus CHEST/RESP: Nontender, clear to auscultation bilateral, no wheeze/rhonchi/rales CARDIOVASCULAR: RRR, no murmur, rub jamie. 2+ Rad pulse bilateral ABDOMEN: Soft, nontender, no mass. +Bowel sounds Back: 2 punctate half millimeter ecchymotic areas that are nontender, midline lumbar. EXT: Full ROM, no edema, no rash Neuro: Grossly normal neurologic exam, conversant, interactive. Psych: Speech fluent, thoughts congruent, affect normal
[2019-05-29] MEDS: Normal Saline 1,000 ML 1000 ML IV (14:30)
[2019-05-29 15:18] VITALS: BP 110/72; PULSE 80; RESP 16; O2SAT 99
== END 2019-05-29 15:29 | disposition home or self-care (01) ==
PROVIDERS: Emergency Provider Emergency Medicine; PCP Nurse Practitioner Family
DX: G97.1 Other reaction to spinal and lumbar puncture (principal)
CPT/HCPCS: 96365; 99284; 99283

== ENCOUNTER 2020-02-29 01:35 | Outpatient (CLI) | payer OTHER, SELFPAY ==
[2020-02-29 14:21] LABS: Kit/Specimen SENT
[2020-02-29 14:42] LABS: Abs Immature Grans 0.03 10^3/uL (0.0-0.06); Absolute Basophil Count 0.07 10^3/uL (0.0-0.2); Absolute Eosinophil Count 0.29 10^3/uL (0.0-0.7); Absolute Lymphocyte Count 2.28 10^3/uL (1.2-3.4); Absolute Monocyte Count 0.61 10^3/uL (0.1-0.8); Absolute Neutrophil Count 4.19 10^3/uL (1.2-6.7); Basophils % 0.9; Eosinophils % 3.9; HCT 43.8 % (36.0-46.0); HGB 14.3 g/dL (11.2-15.7); Immature Grans % 0.4; Lymphocytes % 30.5; MCH 29.7 pg (27.0-33.0); MCHC 32.6 % (32.0-36.0); MCV 90.9 fL (80-95); MPV 11.6 fL (8.0-11.0); Monocytes % 8.2; Neutrophils % 56.1; Nucleated RBC 0 %; Platelet Count 261 10^3/uL (130-400); RBC 4.82 10^6/uL (3.93-5.22); RDW 12.4 % (11.7-14.6); RDW-SD 41.3 fL; WBC 7.47 10^3/uL (4.4-10.8)
[2020-02-29 15:19] LABS: FREE T4 0.94 ng/dL (0.76-1.46)
[2020-02-29 15:57] LABS: Vitamin B12 459 pg/mL (193-986)
[2020-03-01 01:26] LABS: T3,Free 3.8 pg/mL (2.8-5.3)
[2020-03-01 11:26] LABS: IgA 191 mg/dL (85-499); IgG 944 mg/dL (610-1,616); IgM 177 mg/dL (35-242)
[2020-03-02 04:54] LABS: Vitamin D 25 Total 47.2 ng/ml (30-100)
== END 2020-02-29 01:55 ==
PROVIDERS: PCP Naturopath; Visit Provider Naturopath
DX: G51.0 Bell's palsy (principal); E55.9 Vitamin D deficiency, unspecified; R53.83 Other fatigue; F41.9 Anxiety disorder, unspecified; R68.84 Jaw pain; R05 Cough; J30.9 Allergic rhinitis, unspecified
CPT/HCPCS: 36415; 82306; 82784; 82607; 84439; 84443; 84481; 85025

== ENCOUNTER 2020-06-27 03:52 | Outpatient (CLI) | payer OTHER, SELFPAY ==
[2020-06-27 08:37] LABS: HCG Qual (Serum) Positive
== END 2020-06-27 04:12 ==
PROVIDERS: PCP Naturopath; Visit Provider Naturopath
DX: Z32.01 Encounter for pregnancy test, result positive (principal)
CPT/HCPCS: 36415; 84703

== ENCOUNTER 2020-07-08 19:04 | Outpatient (REF) | payer OTHER, SELFPAY ==
[2020-07-08 15:50] LABS: Bilirubin Negative (Negative); Blood Negative (Negative); Clarity Turbid (Clear); Glucose Negative (Negative); Ketones Negative (Negative); Leukocyte Esterase Negative (Negative); Nitrite Negative (Negative); Specific Gravity >= 1.030 (1.005-1.025); Urobilinogen 0.2 EU/dL (Up TO 0.2)
== END 2020-07-08 19:24 ==
LOC: LBN 19:04
PROVIDERS: PCP Naturopath; Visit Provider Nurse Practitioner Family
DX: R35.8 Other polyuria (principal)
CPT/HCPCS: 81003

== ENCOUNTER 2020-08-04 03:43 | Outpatient (CLI) | payer OTHER, SELFPAY ==
[2020-08-04 16:03] LABS: Abs Immature Grans 0.05 10^3/uL (0.0-0.06); Absolute Basophil Count 0.06 10^3/uL (0.0-0.2); Absolute Lymphocyte Count 1.94 10^3/uL (1.2-3.4); Absolute Monocyte Count 0.76 10^3/uL (0.1-0.8); Basophils % 0.5; HCT 40.8 % (36.0-46.0); HGB 14.1 g/dL (11.2-15.7); Immature Grans % 0.4; Lymphocytes % 15.6; MCH 30.4 pg (27.0-33.0); MCHC 34.6 % (32.0-36.0); MCV 87.9 fL (80-95); MPV 10.8 fL (8.0-11.0); Monocytes % 6.1; Neutrophils % 76.4; Nucleated RBC 0 %; Platelet Count 262 10^3/uL (130-400); RBC 4.64 10^6/uL (3.93-5.22); RDW-SD 38.6 fL; WBC 12.43 10^3/uL (4.4-10.8)
[2020-08-04 16:06] LABS: Absolute Eosinophil Count 0.12 10^3/uL (0.0-0.7)
[2020-08-04 16:50] LABS: *AMPHETAMINES SCREEN URINE Negative (Negative); *BARBITURATES SCREEN URINE Negative (Negative); *BENZODIAZEPINES SCREEN URINE Negative (Negative); Cannabinoids THC Negative (Negative); Cocaine Screen,Urine Negative (Negative); METHADONE URINE SCREEN Negative (Negative); OPIATES URINE SCREEN Negative (Negative)
[2020-08-04 16:52] LABS: Tricyclic Antidepressants Negative (Negative)
[2020-08-04 17:00] LABS: TSH (W/Ref FT4) 0.08 uIU/mL (0.36-3.74)
[2020-08-04 17:23] LABS: FREE T4 1.47 ng/dL (0.76-1.46)
[2020-08-07 10:14] LABS: Hepatitis B Surface Ag Negative (Negative)
[2020-08-07 10:49] LABS: Hepatitis C Ab w Rflx HCV PCR Negative (Negative)
[2020-08-07 10:53] LABS: HIV-1/2 Ag & Ab Screen Negative (Negative)
[2020-08-07 11:07] LABS: Varicella IgG Antibody Positive (See Note)
[2020-08-07 11:09] LABS: Rubella IgG Ab (UVM) Positive (See Note)
[2020-08-07 15:58] LABS: Chlamydia Result Negative (Negative); GC Result Negative (Negative)
[2020-08-08 10:45] LABS: Syphilis Total Ab w/Reflex Nonreactive (Nonreactive)
[2020-08-10 14:20] LABS: Buprenorphine Negative; Norbuprenorphine Negative
== END 2020-08-04 04:03 ==
PROVIDERS: PCP Naturopath; Visit Provider Advanced Practice Midwife
DX: Z34.91 Encounter for supervision of normal pregnancy, unspecified, first trimester (principal); Z11.4 Encounter for screening for human immunodeficiency virus [HIV]; Z11.59 Encounter for screening for other viral diseases; Z01.84 Encounter for antibody response examination; Z11.3 Encounter for screening for infections with a predominantly sexual mode of transmission
CPT/HCPCS: 36415; 80307; 86787; 86803; 86850; 86900; 86901; 87340; 87389; 87491; 87591; 84439; 84443; 85025; 86762; 86780; 87086

== ENCOUNTER 2020-08-04 16:54 | Outpatient (REF) | payer OTHER, SELFPAY ==
--- NOTE | 2020-08-04 15:00 | PAPFT_PTH ---
PATIENT: Ele Kimble LOC: [facility] U#:[id number] AGE/SX: 29/F ROOM: RE08/04/[address]: Blas Tenorio RN : 1990 BED: DIS: 08/04/2020 SPEC #: [id number] RECD: 08/04/20 17:42 STATUS: CARLEE REQ #: [id number] CIERRA: 08/04/20 15:[address]: Blas Tenorio DEPT: [facility] Cytology RECD BY: Jenny Dale ENTERED: 08/04/20 17:43 SP TYPE: PAPFT OTHR DR: Nito Castellanos Tissues: 1 - CX/ENDOCX FOR PAP SMEARS Procedures: PAP THIN PREP/UVM Screening Comments: [id number] (UNSATISFACTORY FOR EVALUATION)
== END 2020-08-04 17:14 ==
LOC: LBN 16:54
PROVIDERS: PCP Naturopath; Visit Provider Advanced Practice Midwife
DX: Z12.4 Encounter for screening for malignant neoplasm of cervix (principal); R87.615 Unsatisfactory cytologic smear of cervix
CPT/HCPCS: 88142

== ENCOUNTER 2020-08-18 01:43 | Outpatient (CLI) | payer OTHER, SELFPAY ==
[2020-08-18 08:05] LABS: Glucose,1 Hr (Glucola) 190 mg/dL (80-140)
[2020-08-18 08:42] LABS: Kit/Specimen SENT
[2020-08-19 15:31] LABS: Toxoplasma Ab, IgG Positive (Negative); Toxoplasma Ab, IgM Negative (Negative); Toxoplasma IgG Value 167 IU/mL
[2020-08-23 23:51] LABS: Result Summary NEGATIVE; Specimen WB Whole Blood
[2020-08-29 02:51] LABS: Result Summary NEGATIVE; Specimen WB Whole Blood
[2020-08-29 12:50] LABS: Specimen WB Whole Blood
== END 2020-08-18 02:03 ==
PROVIDERS: Advanced Practice Midwife; PCP Naturopath; Visit Provider Advanced Practice Midwife
DX: Z34.91 Encounter for supervision of normal pregnancy, unspecified, first trimester (principal); Z36.89 Encounter for other specified antenatal screening
CPT/HCPCS: 36415; 81329; 82950; 86652; 81220; 86777; 86778

== ENCOUNTER 2020-09-05 02:39 | Outpatient (CLI) | payer OTHER, SELFPAY ==
[2020-09-05 12:13] LABS: Hemoglobin A1C 4.8 % (<5.7)
[2020-09-05 12:38] LABS: TSH (W/Ref FT4) 0.36 uIU/mL (0.36-3.74)
== END 2020-09-05 02:40 | disposition home or self-care (01) ==
LOC: LBO 02:39
PROVIDERS: PCP Naturopath; Visit Provider Advanced Practice Midwife
DX: O99.282 Endocrine, nutritional and metabolic diseases complicating pregnancy, second trimester (principal); O99.810 Abnormal glucose complicating pregnancy; E05.90 Thyrotoxicosis, unspecified without thyrotoxic crisis or storm; Z3A.14 14 weeks gestation of pregnancy
CPT/HCPCS: 36415; 83036; 84443

== ENCOUNTER 2020-09-18 03:01 | Outpatient (CLI) | payer OTHER, SELFPAY ==
[2020-09-18 09:45] LABS: Glucose 1 Hour 168 mg/dL
[2020-09-18 11:12] LABS: Glucose 3 Hour 90 mg/dL
== END 2020-09-18 03:02 | disposition home or self-care (01) ==
PROVIDERS: PCP Naturopath; Visit Provider Advanced Practice Midwife
DX: O99.810 Abnormal glucose complicating pregnancy (principal)
CPT/HCPCS: 36415; 82951

== ENCOUNTER 2020-09-27 19:30 | Outpatient (REF) | payer OTHER, SELFPAY | END 2020-09-27 19:31 | disposition home or self-care (01) | LOC: LBN 19:30 | PROVIDERS: PCP Naturopath; Visit Provider Advanced Practice Midwife | DX: O26.892 Other specified pregnancy related conditions, second trimester (principal); R10.2 Pelvic and perineal pain | CPT/HCPCS: 87086 ==

== ENCOUNTER 2020-10-04 02:25 | Outpatient (CLI) | payer OTHER, SELFPAY ==
--- NOTE | 2020-10-04 07:15 | DI.US_ITS ---
EXAM: US OB 2-3 TRIMESTER CLINICAL HISTORY: 18 wk anatomy survey,z34.90. TECHNIQUE: Transabdominal obstetrical ultrasound performed. COMPARISON: No exams were available for comparison FINDINGS: Transabdominal obstetrical ultrasound performed. FINDINGS: Number of fetuses: One. position: Varied during the examination. heart rate: 149 bpm. Placental location: Posterior and fundal. No evidence of previa. Amniotic fluid index: Amount of fluid is within normal limits. ANATOMICAL SURVEY: The placental cord insertion site was approximately 6 mm from the edge consi stent with a marginal insertion. Otherwise, the anatomic evaluation was within normal limits. W ithin normal limits. BIOMETRIC DATA: BPD: 3.9cm HC: 15.7cm AC: 13.6cm FL: 2.7cm Cisterna Magna: 2 mm Cerebellum: 1.8 cm Composite Age: 18 weeks 3 days EDC by US: 03/04/2021 Heart Rate: 149BPM IMPRESSION: 1. Single live intrauterine gestation as above. 2. Findings consistent with a marginal placental cord insertion site. 3. Otherwise, normal anatomic evaluation. DATA REPOSITORY:
== END 2020-10-04 02:45 ==
PROVIDERS: PCP Naturopath; Visit Provider Advanced Practice Midwife
DX: Z34.92 Encounter for supervision of normal pregnancy, unspecified, second trimester (principal)
CPT/HCPCS: 76805

== ENCOUNTER 2020-10-04 03:59 | Outpatient (CLI) | payer OTHER, SELFPAY ==
[2020-10-04 13:50] LABS: FREE T4 0.95 ng/dL (0.76-1.46); TSH 0.86 uIU/mL (0.36-3.74)
== END 2020-10-04 04:00 | disposition home or self-care (01) ==
PROVIDERS: PCP Naturopath; Visit Provider Advanced Practice Midwife
DX: O99.282 Endocrine, nutritional and metabolic diseases complicating pregnancy, second trimester (principal); E05.90 Thyrotoxicosis, unspecified without thyrotoxic crisis or storm; Z3A.18 18 weeks gestation of pregnancy
CPT/HCPCS: 36415; 84439; 84443

== ENCOUNTER 2020-10-14 18:30 | Emergency (ER) | payer OTHER, SELFPAY ==
--- NOTE | 2020-10-14 18:34 | NUR.NOTE ---
Nursing Note: Junaid; ,
[2020-10-14 18:42] VITALS: BP 157/101; PULSE 120; RESP 23; TEMP 36.8; O2SAT 100
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
[2020-10-14 19:12] LABS: Abs Immature Grans 0.13 10^3/uL (0.0-0.06); Absolute Basophil Count 0.08 10^3/uL (0.0-0.2); Absolute Lymphocyte Count 2.21 10^3/uL (1.2-3.4); Absolute Monocyte Count 0.72 10^3/uL (0.1-0.8); Basophils % 0.7; Eosinophils % 1.8; HCT 39.7 % (36.0-46.0); HGB 13.3 g/dL (11.2-15.7); Immature Grans % 1.1; Lymphocytes % 18.5; MCH 29.8 pg (27.0-33.0); MCHC 33.5 % (32.0-36.0); MPV 11.1 fL (8.0-11.0); Neutrophils % 71.9; Nucleated RBC 0 %; Platelet Count 238 10^3/uL (130-400); RBC 4.46 10^6/uL (3.93-5.22); RDW 13.1 % (11.7-14.6); RDW-SD 42.1 fL; WBC 11.97 10^3/uL (4.4-10.8)
[2020-10-14 19:18] LABS: Absolute Eosinophil Count 0.22 10^3/uL (0.0-0.7); Absolute Neutrophil Count 8.61 10^3/uL (1.2-6.7)
[2020-10-14 19:25] LABS: ALT 21 U/L (14-59); AST 12 U/L (15-37); Albumin 2.8 g/dL (3.4-5.0); Alkaline Phosphatase 91 U/L (46-116); Anion Gap 10.2 mmol/L (3-11); BUN 11 mg/dL (7-18); Bilirubin, Total 0.2 mg/dL (0.2-1.0); CO2 23.8 mmol/L (21.0-32.0); CREATININE 0.6 mg/dL (0.55-1.02); Calcium 9.5 mg/dL (8.5-10.1); Chloride 105 mmol/L (98-107); Glucose 96 mg/dL (74-106); Potassium 3.7 mmol/L (3.5-5.1); Sodium 139 mmol/L (136-145); Total Protein 6.7 g/dL (6.4-8.2)
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
[2020-10-14] MEDS: Acetaminophen 500 MG TAB 1000 MG PO (20:07)
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
== END 2020-10-14 20:10 | disposition home or self-care (01) ==
LOC: ER 19:46
PROVIDERS: Emergency Provider Emergency Medicine; PCP Naturopath
DX: S30.1XXA Contusion of abdominal wall, initial encounter (principal); V43.62XA Car passenger injured in collision with other type car in traffic accident, initial encounter; Z3A.20 20 weeks gestation of pregnancy
CPT/HCPCS: 80053; 86900; 86901; 99252; 99284; 71045; 85025

== ENCOUNTER 2020-11-14 02:19 | Outpatient (CLI) | payer OTHER, SELFPAY ==
[2020-11-15 12:50] LABS: COVID-19 RT-PCR UVMMC Result Negative (Negative)
== END 2020-11-14 02:20 | disposition home or self-care (01) ==
LOC: LBO 02:19
PROVIDERS: PCP Naturopath; Visit Provider Naturopath
DX: Z20.822 Contact with and (suspected) exposure to COVID-19 (principal)
CPT/HCPCS: U0003

== ENCOUNTER 2020-12-05 03:36 | Outpatient (CLI) | payer OTHER, SELFPAY ==
[2020-12-05 08:15] LABS: HCT 36.6 % (36.0-46.0); HGB 12.6 g/dL (11.2-15.7); MCH 30.2 pg (27.0-33.0); MCHC 34.4 % (32.0-36.0); MCV 87.8 fL (80-95); MPV 11.4 fL (8.0-11.0); Platelet Count 207 10^3/uL (130-400); RBC 4.17 10^6/uL (3.93-5.22); RDW 12.9 % (11.7-14.6); RDW-SD 41.2 fL; WBC 10.23 10^3/uL (4.4-10.8)
[2020-12-05 08:35] LABS: TSH (W/Ref FT4) 0.61 uIU/mL (0.36-3.74)
[2020-12-05 10:06] LABS: Glucose 1 Hour 214 mg/dL
[2020-12-05 11:52] LABS: Glucose 3 Hour 69 mg/dL
[2020-12-07 01:14] LABS: Vitamin D 25 Total 33.5 ng/mL (30-100)
== END 2020-12-05 03:37 | disposition home or self-care (01) ==
LOC: LBO 03:36
PROVIDERS: PCP Naturopath; Visit Provider Advanced Practice Midwife
DX: O99.282 Endocrine, nutritional and metabolic diseases complicating pregnancy, second trimester (principal); O24.410 Gestational diabetes mellitus in pregnancy, diet controlled; E05.90 Thyrotoxicosis, unspecified without thyrotoxic crisis or storm; Z3A.26 26 weeks gestation of pregnancy
CPT/HCPCS: 36410; 82306; 85027; 82951; 84443

== ENCOUNTER 2020-12-29 04:08 | Outpatient (CLI) | payer OTHER, SELFPAY ==
--- NOTE | 2020-12-29 08:00 | DI.US_ITS ---
Exam(s) US OB YING WEIGHT EXAM: US OB YING WEIGHT CLINICAL HISTORY: Size > dates,gest diabetes,O24.19, to [facility] after. TECHNIQUE: Transabdominal obstetrical ultrasound performed. COMPARISON: US US OB 2-3 TRIMESTER from 10/04/2020 FINDINGS: Transabdominal obstetrical ultrasound performed. FINDINGS: Number of fetuses: One. position: Cephalic. Placental location: Fundal. No evidence of previa. Marginal umbilical cord insertion site which is 1.9 cm from the placental edge. BIOMETRIC DATA: BPD: 78 mm = 31 weeks 2 days HC: 286 mm = 31 weeks 3 days AC: 268 mm = 30 weeks 6 days FL: 56 mm = 29 weeks 3 days EFW: 1593 grms 46% Composite Age: 30 weeks 5 days EDC: 03/04/2021 Heart Rate: 149BPM Amniotic fluid index: 21.9 cm. Visually, amount of fluid is within normal limits. IMPRESSION: 1. Single live intrauterine gestation as above. 2. There is a marginal insertion site of the umbilical cord. It is located 1.9 cm from the placental edge. 3. Estimated weight is 1593gms. 4. Amniotic fluid index is 21.9 cm. Visually within normal limits. DATA REPOSITORY:
--- NOTE | 2021-01-08 14:28 | W.DIABETESNO ---
Date of service: 01/08/21 Time of Service: 14:28 Diabetes Note NOTE: Spoke to Aaron on phone. She reports that she is starting NPH insulin 4 u AM and PM due to increase in her fasting blood sugars. Reviewed importance of QID finger sticks. Reviewed diet oriented questions and concerns and provided meal plan examples. Aaron will start using roni called No Chains to track her macronutrient at meals. Goal is to follow 175-200 g carbohydrate diet with 60-70 g protein with emphasis on complex carbs, lean protein, non starchy vegetables and healthy fats. Encouraged daily 45-60 min walk. Will continue to be resource for patient during her . Time Spent in Nutritional Counseling and Treatment: 20
== END 2020-12-29 04:28 ==
PROVIDERS: PCP Naturopath; Visit Provider Obstetrics & Gynecology
DX: O24.410 Gestational diabetes mellitus in pregnancy, diet controlled (principal); O26.843 Uterine size-date discrepancy, third trimester; Z3A.30 30 weeks gestation of pregnancy
CPT/HCPCS: 76816

== ENCOUNTER 2021-01-12 08:01 | Outpatient (CLI) | payer OTHER, SELFPAY ==
[2021-01-12 09:19] VITALS: BP 126/86; PULSE 112; TEMP 36.5
[2021-01-12 09:27] VITALS: BP 126/86; PULSE 112
--- NOTE | 2021-01-12 09:52 | W.OBNST ---
Date of service: 01/12/21 Time of Service: 09:52 NST Evaluation Reason for NST Reasons for Nonstress Test: GDM-INSULIN Gestational Age Gestational Age in Weeks and Days: 33 Weeks and 0Days Test and Monitor Explained Test/Monitor Explained: Test Explained, Monitor Explained and Patient Verbalized Understanding Vital Signs Blood Pressure: 126/86 Pulse: 112 Temperature: 97.7 F Urine Results Urine Protein: Negative Urine Ketones: Positive Urine Glucose: Negative Urine Blood: Negative NST Information Date on Monitor: 01/12/21 Time on Monitor: 09:24 Date off Monitor: 01/12/21 Time off Monitor: 09:45 Total Time on Monitor: 21 NST Interventions: PO Hydration NST Evaluation Patient States Movement: Present FHR Baseline: 135 Variability: Moderate 6-25 bpm Accelerations: 15x15 Decelerations: None NST Results: Reactive Note NST Note Note: Reactive NST. Category 1 strip. Follow-up as scheduled. Continue care. NST Reviewed and Verified by: Cece Smallwood
[2021-01-12 09:53] VITALS: BP 126/86; PULSE 112; TEMP 36.5
== END 2021-01-12 09:51 | disposition home or self-care (01) ==
LOC: BCD 08:05 → OBS 09:10
PROVIDERS: PCP Naturopath; Visit Provider Obstetrics & Gynecology
DX: O24.414 Gestational diabetes mellitus in pregnancy, insulin controlled (principal); Z3A.33 33 weeks gestation of pregnancy
CPT/HCPCS: 59025

== ENCOUNTER 2021-01-22 01:00 | Outpatient (CLI) | payer OTHER, SELFPAY ==
[2021-01-22 01:06] VITALS: BP 113/69; PULSE 94; RESP 96; TEMP 37; O2SAT 16
[2021-01-22 02:23] LABS: ALT 30 U/L (14-59); AST 23 U/L (15-37); Albumin 2.5 g/dL (3.4-5.0); Alkaline Phosphatase 121 U/L (46-116); Amylase 86 U/L (25-115); Anion Gap 12.4 mmol/L (3-11); BUN 10 mg/dL (7-18); Bilirubin, Total 0.2 mg/dL (0.2-1.0); CO2 21.6 mmol/L (21.0-32.0); CREATININE 0.6 mg/dL (0.55-1.02); Calcium 8.6 mg/dL (8.5-10.1); Chloride 105 mmol/L (98-107); Glucose 104 mg/dL (74-106); Lipase 96 U/L (73-393); Potassium 3.5 mmol/L (3.5-5.1); Sodium 139 mmol/L (136-145); Total Protein 6.1 g/dL (6.4-8.2)
== END 2021-01-22 02:42 | disposition home or self-care (01) ==
LOC: OBS 01:37 → BCD 01-23 14:45
PROVIDERS: PCP Naturopath; Visit Provider Obstetrics & Gynecology Gynecology
DX: O26.893 Other specified pregnancy related conditions, third trimester (principal); Z3A.33 33 weeks gestation of pregnancy; O24.414 Gestational diabetes mellitus in pregnancy, insulin controlled; R10.11 Right upper quadrant pain; R11.2 Nausea with vomiting, unspecified
CPT/HCPCS: 36415; 80053; 83690; 82150; G0378

== ENCOUNTER 2021-01-22 10:23 | Outpatient (CLI) | payer OTHER, SELFPAY ==
[2021-01-22 13:04] VITALS: BP 121/81; PULSE 98; TEMP 36.9
[2021-01-22 13:15] VITALS: BP 121/81; PULSE 98
--- NOTE | 2021-01-22 14:02 | W.OBNST ---
Date of service: 01/22/21 Time of Service: 14:02 NST Evaluation Reason for NST Reasons for Nonstress Test: GDM-INSULIN Gestational Age Gestational Age in Weeks and Days: 34 Weeks and 3Days Test and Monitor Explained Test/Monitor Explained: Test Explained, Monitor Explained and Patient Verbalized Understanding Vital Signs Blood Pressure: 121/81 Pulse: 98 Temperature: 98.4 F Urine Results Urine Protein: Negative Urine Ketones: Negative Urine Glucose: Negative Urine Blood: Positive NST Information Date on Monitor: 01/22/21 Time on Monitor: 13:08 Date off Monitor: 01/22/21 Time off Monitor: 13:44 Total Time on Monitor: 36 NST Interventions: PO Hydration Contraction Frequency: none NST Evaluation Patient States Movement: Present FHR Baseline: 135 Variability: Moderate 6-25 bpm Accelerations: 15x15 Decelerations: None NST Results: Reactive Note NST Note Note: Patient seen in the center for nonstress testing. She is an insulin requiring gestational diabetic. She currently has good control. She was seen last night due to upper epigastric discomfort after eating fried chicken. She states that discomfort has resolved. Her vital signs are stable. Blood sugars were reviewed. She will continue to have weekly nonstress testing until 36 weeks then I will increase to twice weekly. She will have growth growth ultrasound and group B strep culture at 36 weeks. She will be seen back in 1 week NST Reviewed and Verified by: Cece Smallwood
[2021-01-22 14:03] VITALS: BP 121/81; PULSE 98; TEMP 36.9
== END 2021-01-22 14:20 | disposition home or self-care (01) ==
LOC: BCD 10:24 → OBS 12:56
PROVIDERS: PCP Naturopath; Visit Provider Obstetrics & Gynecology
DX: O24.414 Gestational diabetes mellitus in pregnancy, insulin controlled (principal); Z3A.34 34 weeks gestation of pregnancy
CPT/HCPCS: 59025

== ENCOUNTER 2021-01-30 07:23 | Outpatient (CLI) | payer OTHER, SELFPAY ==
[2021-01-30 11:05] VITALS: BP 125/78; PULSE 105
--- NOTE | 2021-01-30 12:31 | W.OBNST ---
Date of service: 01/30/21 Time of Service: 12:32 NST Evaluation Gestational Age Gestational Age in Weeks and Days: 34 Weeks and 3Days Note NST Note Note: Patient was seen on the center for scheduled nonstress testing. Baby is moving and active. She is category 1 strip. She has an occasional irregular contraction. We did review her blood sugars. She has been having some elevated 1 hour postprandials as well as an occasional fasting which is elevated. She will have her insulin increased to 8 units of NPH in the morning and 8 units of NPH in the evening. She will have a repeat nonstress test on Friday with a physician visit. NST Reviewed and Verified by: Cece Smallwood
== END 2021-01-30 11:51 | disposition home or self-care (01) ==
LOC: BCD 07:26 → OBS 02-08 15:39
PROVIDERS: PCP Naturopath; Visit Provider Obstetrics & Gynecology
DX: O24.414 Gestational diabetes mellitus in pregnancy, insulin controlled (principal); Z3A.34 34 weeks gestation of pregnancy; Z79.4 Long term (current) use of insulin
CPT/HCPCS: 59025

== ENCOUNTER 2021-02-02 07:59 | Outpatient (CLI) | payer OTHER, SELFPAY ==
[2021-02-02 11:16] VITALS: BP 112/69; PULSE 105; TEMP 36.7
[2021-02-02 11:22] VITALS: BP 112/69; PULSE 105
--- NOTE | 2021-02-02 12:27 | W.OBNST ---
Date of service: 02/02/21 Time of Service: 12:28 NST Evaluation Reason for NST Reasons for Nonstress Test: GDM-INSULIN Gestational Age Gestational Age in Weeks and Days: 36 Weeks and 0Days Test and Monitor Explained Test/Monitor Explained: Test Explained, Monitor Explained and Patient Verbalized Understanding Vital Signs Blood Pressure: 112/69 Pulse: 105 Temperature: 98.1 F Urine Results Urine Protein: Negative Urine Ketones: Negative Urine Glucose: Negative Urine Blood: Negative NST Information Date on Monitor: 02/02/21 Time on Monitor: 11:17 Date off Monitor: 02/02/21 Time off Monitor: 11:38 Total Time on Monitor: 21 NST Interventions: PO Hydration NST Evaluation Patient States Movement: Present FHR Baseline: 135 Variability: Moderate 6-25 bpm Accelerations: 15x15 Decelerations: None NST Results: Reactive Note NST Note Note: I reviewed patient's CBGs. No plans for insulin dose adjustment at this time. We will continue twice weekly NSTs. [facility] NST Reviewed and Verified by: Ivy Kyle
[2021-02-02 12:28] VITALS: BP 112/69; PULSE 105; TEMP 36.7
== END 2021-02-02 11:40 | disposition home or self-care (01) ==
LOC: BCD 08:02 → OBS 11:06
PROVIDERS: PCP Naturopath; Visit Provider Obstetrics & Gynecology Gynecology
DX: O24.414 Gestational diabetes mellitus in pregnancy, insulin controlled (principal); Z3A.36 36 weeks gestation of pregnancy
CPT/HCPCS: 59025

== ENCOUNTER 2021-02-02 13:31 | Outpatient (REF) | payer OTHER, SELFPAY ==
[2021-02-02 14:23] LABS: *AMPHETAMINES SCREEN URINE Negative (Negative); *BARBITURATES SCREEN URINE Negative (Negative); *BENZODIAZEPINES SCREEN URINE Negative (Negative); Cannabinoids THC Negative (Negative); Cocaine Screen,Urine Negative (Negative); METHADONE URINE SCREEN Negative (Negative); OPIATES URINE SCREEN Negative (Negative)
[2021-02-02 14:27] LABS: Tricyclic Antidepressants Negative (Negative)
[2021-02-07 10:03] LABS: Buprenorphine Negative ng/mL (Cutoff: 5.0); Norbuprenorphine Negative ng/mL (Cutoff: 2.5)
== END 2021-02-02 13:32 | disposition home or self-care (01) ==
LOC: LBN 13:31
PROVIDERS: PCP Naturopath; Visit Provider Obstetrics & Gynecology Gynecology
DX: Z34.93 Encounter for supervision of normal pregnancy, unspecified, third trimester (principal); Z36.85 Encounter for antenatal screening for Streptococcus B; Z3A.36 36 weeks gestation of pregnancy
CPT/HCPCS: 80307; 87081

== ENCOUNTER 2021-02-05 21:10 | Outpatient (REF) | payer OTHER, SELFPAY | END 2021-02-05 21:11 | disposition home or self-care (01) | LOC: LBN 21:10 | PROVIDERS: PCP Naturopath; Visit Provider Advanced Practice Midwife | DX: O26.893 Other specified pregnancy related conditions, third trimester (principal); R30.0 Dysuria | CPT/HCPCS: 87086; 87480; 87510; 87660 ==

== ENCOUNTER 2021-02-06 07:35 | Outpatient (CLI) | payer OTHER, SELFPAY | END 2021-02-06 07:36 | disposition home or self-care (01) | LOC: BCD 07:36 | PROVIDERS: PCP Naturopath; Visit Provider Obstetrics & Gynecology Gynecology | DX: R69 Illness, unspecified (principal) ==

== ENCOUNTER 2021-02-09 08:21 | Outpatient (CLI) | payer OTHER, SELFPAY ==
[2021-02-09 11:10] VITALS: BP 149/105; PULSE 98; TEMP 36.6
[2021-02-09 11:28] VITALS: BP 149/105; PULSE 98
[2021-02-09 11:35] VITALS: BP 117/71; PULSE 109
[2021-02-09 13:53] VITALS: BP 149/105; PULSE 98; TEMP 36.6
--- NOTE | 2021-02-09 13:53 | W.OBNST ---
Date of service: 02/09/21 Time of Service: 13:53 NST Evaluation Reason for NST Reasons for Nonstress Test: GDM-INSULIN Gestational Age Gestational Age in Weeks and Days: 37 Weeks and 0Days Test and Monitor Explained Test/Monitor Explained: Test Explained, Monitor Explained and Patient Verbalized Understanding Vital Signs Blood Pressure: 149/105 Pulse: 98 Temperature: 97.9 F NST Information Date on Monitor: 02/09/21 Time on Monitor: 11:15 Date off Monitor: 02/09/21 Time off Monitor: 11:47 Total Time on Monitor: 32 NST Interventions: PO Hydration NST Evaluation Patient States Movement: Present FHR Baseline: 130 Variability: Moderate 6-25 bpm Accelerations: 15x15 Decelerations: None NST Results: Reactive Note NST Note Note: Patient seen for surveillance with nonstress testing. NST is a category 1 strip. We will follow-up as scheduled. Continue surveillance. Ultrasound is scheduled. NST Reviewed and Verified by: Cece Smallwood
== END 2021-02-09 11:50 | disposition home or self-care (01) ==
LOC: BCD 08:22 → OBS 10:10
PROVIDERS: PCP Naturopath; Visit Provider Obstetrics & Gynecology
DX: O24.414 Gestational diabetes mellitus in pregnancy, insulin controlled (principal); Z3A.37 37 weeks gestation of pregnancy
CPT/HCPCS: 59025

== ENCOUNTER 2021-02-13 01:48 | Outpatient (CLI) | payer OTHER, SELFPAY ==
--- NOTE | 2021-02-13 07:45 | DI.US_ITS ---
Exam(s) US OB YING WEIGHT EXAM: US OB YING WEIGHT CLINICAL HISTORY: check wt and fluid,GEST DIABETES,o24.419. TECHNIQUE: Transabdominal obstetrical ultrasound performed. COMPARISON: US US OB YING WEIGHT from 12/29/2020 US US OB YING WEIGHT from 12/29/2020 FINDINGS:: Number of fetuses: One. position: Vertex. Placental location: Posterior. No evidence of previa. BIOMETRIC DATA: BPD: 89 mm = 35+ 6 weeks HC: 325mm = 36+ 6 weeks AC: 332mm = 37+ 1 weeks FL: 73 mm = 37+ 3 weeks EFW: 3083 Gms = 44% Composite Age: 36+ 6 weeks EDC: 07 March 2021 Heart Rate: 121BPM Amniotic fluid index: 17 cm. Amount of fluid is within normal limits. IMPRESSION: size and weight are within the expected range. DATA REPOSITORY:
== END 2021-02-13 02:08 ==
PROVIDERS: PCP Naturopath; Visit Provider Obstetrics & Gynecology Gynecology
DX: O24.419 Gestational diabetes mellitus in pregnancy, unspecified control (principal); Z3A.37 37 weeks gestation of pregnancy
CPT/HCPCS: 76816

== ENCOUNTER 2021-02-16 10:07 | Outpatient (CLI) | payer OTHER, SELFPAY ==
[2021-02-16 11:42] VITALS: BP 123/79; PULSE 104
--- NOTE | 2021-03-20 13:46 | W.OBNST ---
Date of service: 03/20/21 Time of Service: 13:47 NST Evaluation Reason for NST Reasons for Nonstress Test: GDM-INSULIN Gestational Age Gestational Age in Weeks and Days: 39 Weeks and 5Days Test and Monitor Explained Test/Monitor Explained: Test Explained, Monitor Explained and Patient Verbalized Understanding Vital Signs Blood Pressure: 123/79 Pulse: 104 NST Information Date on Monitor: 02/16/21 NST Interventions: None Contraction Frequency: none NST Evaluation Patient States Movement: Present FHR Baseline: 140 Variability: Moderate 6-25 bpm Accelerations: 15x15 Decelerations: None NST Results: Reactive Note NST Note NST Reviewed and Verified by: Ivy Kyle
[2021-03-20 13:50] VITALS: BP 123/79; PULSE 104
== END 2021-02-16 12:00 | disposition home or self-care (01) ==
LOC: BCD 10:09 → OBS 11:06
PROVIDERS: PCP Naturopath; Visit Provider Obstetrics & Gynecology
DX: O24.414 Gestational diabetes mellitus in pregnancy, insulin controlled (principal); Z3A.39 39 weeks gestation of pregnancy
CPT/HCPCS: 59025

== ENCOUNTER 2021-02-20 06:33 | Outpatient (CLI) | payer OTHER, SELFPAY ==
[2021-02-20 10:56] VITALS: BP 124/78; PULSE 96
[2021-02-20 11:06] VITALS: BP 124/78; PULSE 96
--- NOTE | 2021-02-20 11:44 | W.OBNST ---
Date of service: 02/20/21 Time of Service: 11:44 NST Evaluation Reason for NST Reasons for Nonstress Test: GDM-INSULIN Gestational Age Gestational Age in Weeks and Days: 38 Weeks and 4Days Test and Monitor Explained Test/Monitor Explained: Test Explained, Monitor Explained and Patient Verbalized Understanding Vital Signs Blood Pressure: 124/78 Pulse: 96 Urine Results Urine Protein: Positive Urine Ketones: Negative Urine Glucose: Negative Urine Blood: Negative NST Information Date on Monitor: 02/20/21 Time on Monitor: 11:00 Date off Monitor: 02/20/21 Time off Monitor: 11:21 Total Time on Monitor: 21 NST Interventions: PO Hydration NST Evaluation Patient States Movement: Present FHR Baseline: 135 Variability: Moderate 6-25 bpm Accelerations: 15x15 Decelerations: None NST Results: Reactive Note NST Note Note: Center for insulin requiring gestational diabetes. She had a category 1 strip. Reactive months. We will follow-up on 30 October for nonstress test and OB appointment. Labor induction scheduled to be determined NST Reviewed and Verified by: Cece Smallwood
[2021-02-20 11:45] VITALS: BP 124/78; PULSE 96
[2021-02-20 14:16] VITALS: BP 122/94; PULSE 100
== END 2021-02-20 11:30 | disposition home or self-care (01) ==
LOC: BCD 06:44 → OBS 10:44
PROVIDERS: PCP Naturopath; Visit Provider Obstetrics & Gynecology Gynecology
DX: O24.414 Gestational diabetes mellitus in pregnancy, insulin controlled (principal); Z3A.38 38 weeks gestation of pregnancy
CPT/HCPCS: 59025

== ENCOUNTER 2021-02-23 07:45 | Outpatient (CLI) | payer OTHER, SELFPAY ==
[2021-02-23 13:30] VITALS: BP 125/81; PULSE 90; TEMP 36.5
[2021-02-23 14:24] VITALS: BP 125/81; PULSE 90
--- NOTE | 2021-02-23 15:17 | W.OBNST ---
Date of service: 02/23/21 Time of Service: 15:17 NST Evaluation Reason for NST Reasons for Nonstress Test: GDM-INSULIN Gestational Age Gestational Age in Weeks and Days: 39 Weeks and 0Days Test and Monitor Explained Test/Monitor Explained: Test Explained, Monitor Explained and Patient Verbalized Understanding Vital Signs Blood Pressure: 125/81 Pulse: 90 Temperature: 97.7 F NST Information Date on Monitor: 02/23/21 Time on Monitor: 13:34 Date off Monitor: 02/23/21 Time off Monitor: 14:20 Total Time on Monitor: 46 NST Interventions: PO Hydration and Reposition Patient NST Evaluation Patient States Movement: Present FHR Baseline: 130 Variability: Moderate 6-25 bpm Accelerations: 15x15 Decelerations: None NST Results: Reactive Note NST Note Note: surveillance for insulin requiring gestational diabetes. Category 1 strip, no contractions. Cervix 1 and 60%. Labor induction scheduled for Friday NST Reviewed and Verified by: Cece Smallwood
[2021-02-23 15:18] VITALS: BP 125/81; PULSE 90; TEMP 36.5
== END 2021-02-23 14:49 | disposition home or self-care (01) ==
LOC: BCD 07:46 → OBS 13:10
PROVIDERS: PCP Naturopath; Visit Provider Obstetrics & Gynecology
DX: O24.414 Gestational diabetes mellitus in pregnancy, insulin controlled (principal); Z3A.39 39 weeks gestation of pregnancy
CPT/HCPCS: 59025

== ENCOUNTER 2021-02-28 10:28 | Inpatient (IN) | payer OTHER, SELFPAY ==
[2021-02-28] VITALS (9 sets, daily range): BP systolic 113–133; BP diastolic 68–86; PULSE 88–110; RESP 18; TEMP 36.6–37.1; O2SAT 96–99
[2021-02-28 11:47] LABS: Source Nasal/Nares
[2021-02-28 11:53] LABS: HCT 38.6 % (36.0-46.0); HGB 13.2 g/dL (11.2-15.7); MCH 29.5 pg (27.0-33.0); MCHC 34.2 % (32.0-36.0); MCV 86.4 fL (80-95); MPV 11.6 fL (8.0-11.0); Platelet Count 195 10^3/uL (130-400); RBC 4.47 10^6/uL (3.93-5.22); RDW 13.9 % (11.7-14.6); RDW-SD 43.7 fL; WBC 8.65 10^3/uL (4.4-10.8)
[2021-02-28] MEDS: miSOPROStol 25 MCG TAB PO ×3 (12:24→20:40)
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
[2021-02-28 12:38] LABS: COVID-19 PCR Negative (Negative)
--- NOTE | 2021-02-28 17:31 | W.PM.OBNL1 ---
Date of service: 02/28/21 Time of Service: 17:32 Fetus A Presentation: Cephalic Variability: Moderate (6-25 BPM) Categories: Category I FHR Rhythm: Regular Accelerations: 15 X 15 Decelerations: None Assessment and Plan Assessment and plan (1) Gestational diabetes mellitus (GDM): Status: Acute Assessment and plan: Patient having a medically indicated induction of labor at term due to insulin requiring gestational diabetes. We will slowly progress with cervical ripening and subsequent augmentation of labor as indicated. Patient is open to any form of pain control. She was encouraged ambulation and rest as needed. We will reevaluate her cervix when appropriate to ascertain next step of intervention. Objective Abnormal lab results 02/28/21 Range/Units 11:30 MPV 11.6 H (8.0-11.0) fL Temp Pulse Resp BP Pulse Ox 98.8 F 93 H 18 130/76 97 02/28/21 14:26 02/28/21 16:27 02/28/21 14:26 02/28/21 16:27 02/28/21 14:26 Laboratory Results WBC 8.65 10^3/uL (4.4-10.8) 02/28/21 11:30 RBC 4.47 10^6/uL (3.93-5.22) 02/28/21 11:30 Hgb 13.2 g/dL (11.2-15.7) 02/28/21 11:30 Hct 38.6 % (36.0-46.0) 02/28/21 11:30 MCV 86.4 fL (80-95) 02/28/21 11:30 MCH 29.5 pg (27.0-33.0) 02/28/21 11:30 MCHC 34.2 % (32.0-36.0) 02/28/21 11:30 RDW 13.9 % (11.7-14.6) 02/28/21 11:30 Plt Count 195 10^3/uL (130-400) 02/28/21 11:30 MPV 11.6 fL (8.0-11.0) H 02/28/21 11:30 COVID-19 Source Nasal/Nares 02/28/21 11:20 SARS-CoV-2 (PCR) Negative (Negative) 02/28/21 11:20 Patient ABO/Rh O Positive 02/28/21 11:30 Antibody Screen NEGATIVE 02/28/21 11:30 Subjective Patient Reports: No new Complaints Interval history since last seen: Patient seen on the center this afternoon after receiving her second dose of misoprostol. First was placed vaginally, second poorly. She did take her 8 units of NPH and have a normal dinner. She is feeling well. Baby's been moving and active. She is not feeling any particular contractions. She does state that she has a high pain tolerance. We discussed the plan of cervical ripening this evening with ongoing doses of misoprostol as indicated. We discussed the possibility of holding a dose if her uterine activity is greater than what we would desire. She was encouraged to ambulate as she needs to, but also rest this evening. Vern was written for tonight if she needs medication for sleep. Plan would be, if her cervix is still unfavorable in the morning, to consider the possibility of Cook catheter. If cervix is ripe and not in spontaneous labor, would augment with Pitocin. Both patient and her agreed to the plan. No further questions. Results Hemoglobin/Hematocrit: Hgb 13.2 g/dL (11.2-15.7) 02/28/21 11:30 Hct 38.6 % (36.0-46.0) 02/28/21 11:30 Abnormal Lab Findings: Abnormal Labs 02/28/21 11:30 MPV 11.6 H
[2021-02-28] MEDS: Zolpidem 5 MG TAB 10 MG PO (22:41)
[2021-03-01] VITALS (30 sets, daily range): BP systolic 106–137; BP diastolic 57–87; PULSE 90–131; RESP 18; TEMP 36.3–37; O2SAT 87–100; BMI 39.9
--- NOTE | 2021-03-01 09:49 | W.PM.OBNL1 ---
Date of service: 03/01/21 Time of Service: 09:50 Pelvic Exam Dilation: 3 Effacement (%): 75 station: -2 Position: OA Cervix Position: posterior Consistency: soft BISHOPS Score(Cervical Ripeness Score): 7 Vaginal Exam Presentation: Cephalic Contractions Monitor Mode: External Contraction Frequency(min): q 2-3 Contraction Duration(sec): 45 Intensity: Mild Fetus A Monitor: External (US) Heart Rate Baseline: 140 Presentation: Cephalic Variability: Moderate (6-25 BPM) Categories: Category I FHR Rhythm: Regular Characteristics: Normal Accelerations: 15 X 15 Decelerations: None Amniotic Membrane Status: Ruptured Rupture Method: Artifical Amniotic Fluid: Clear Date of Membrane Rupture: 03/01/21 Time of Membrane Rupture: 09:53 Assessment and Plan Assessment and plan (1) Encounter for induction of labor: Status: Acute Assessment and plan: I have excepted care of the patient from Dr. Smallwood. Over the course of evening she received 3 doses of misoprostol and slept comfortably. On sterile vaginal exam this morning she was 3 cm dilated and cyst rupture membranes was performed with clear fluid returned. Plan at this time is expectant management and oxytocin augmentation if needed. (2) Gestational diabetes mellitus (GDM): Status: Acute Assessment and plan: Patient takes Novolin-N units twice daily. I recommended against insulin during the induction. She will have regular meal and then begin clear liquids. I recommended checking her sugars every 6 hours. Objective Abnormal lab results 02/28/21 Range/Units 11:30 MPV 11.6 H (8.0-11.0) fL Temp Pulse Resp BP Pulse Ox 98.4 F 114 H 18 120/72 99 03/01/21 09:10 03/01/21 09:10 03/01/21 09:10 03/01/21 09:10 02/28/21 22:43 Laboratory Results WBC 8.65 10^3/uL (4.4-10.8) 02/28/21 11:30 RBC 4.47 10^6/uL (3.93-5.22) 02/28/21 11:30 Hgb 13.2 g/dL (11.2-15.7) 02/28/21 11:30 Hct 38.6 % (36.0-46.0) 02/28/21 11:30 MCV 86.4 fL (80-95) 02/28/21 11:30 MCH 29.5 pg (27.0-33.0) 02/28/21 11:30 MCHC 34.2 % (32.0-36.0) 02/28/21 11:30 RDW 13.9 % (11.7-14.6) 02/28/21 11:30 Plt Count 195 10^3/uL (130-400) 02/28/21 11:30 MPV 11.6 fL (8.0-11.0) H 02/28/21 11:30 COVID-19 Source Nasal/Nares 02/28/21 11:20 SARS-CoV-2 (PCR) Negative (Negative) 02/28/21 11:20 Patient ABO/Rh O Positive 02/28/21 11:30 Antibody Screen NEGATIVE 02/28/21 11:30 Subjective Patient Reports: No new Complaints Interventions Induction Indication: Gestational Diabetes , Type of Induction: Artifical Rupture of Membranes and Misoprostol administration: Oral , Results Hemoglobin/Hematocrit: Hgb 13.2 g/dL (11.2-15.7) 02/28/21 11:30 Hct 38.6 % (36.0-46.0) 02/28/21 11:30 Abnormal Lab Findings: Abnormal Labs 02/28/21 11:30 MPV 11.6 H Procedure Procedures: Cervical Ripening Cervical Ripening: Misoprostol (3 doses overnight. No additional dosing as of 03/01/2021.)
--- NOTE | 2021-03-01 13:45 | W.PM.OBNL1 ---
Date of service: 03/01/21 Time of Service: 13:45 Fetus A Monitor: Doppler Characteristics: Normal Assessment and Plan Assessment and plan (1) Encounter for induction of labor: Status: Acute Assessment and plan: Contractions becoming more frequent and more intense over the course of several hours after AROM. Has remained in the birthing tub since AROM. Patient used nitric oxide with satisfactory results. Plan to continue expectant management. (2) Encounter for supervision of normal first , third trimester: Status: Acute (3) Gestational diabetes mellitus (GDM): Status: Acute Assessment and plan: Every 6 hours CBGs have been within normal limits. Morning insulin held. Objective Temp Pulse Resp BP Pulse Ox 98.1 F 106 H 18 132/87 99 03/01/21 13:06 03/01/21 11:07 03/01/21 09:10 03/01/21 11:07 02/28/21 22:43 Laboratory Results WBC 8.65 10^3/uL (4.4-10.8) 02/28/21 11:30 RBC 4.47 10^6/uL (3.93-5.22) 02/28/21 11:30 Hgb 13.2 g/dL (11.2-15.7) 02/28/21 11:30 Hct 38.6 % (36.0-46.0) 02/28/21 11:30 MCV 86.4 fL (80-95) 02/28/21 11:30 MCH 29.5 pg (27.0-33.0) 02/28/21 11:30 MCHC 34.2 % (32.0-36.0) 02/28/21 11:30 RDW 13.9 % (11.7-14.6) 02/28/21 11:30 Plt Count 195 10^3/uL (130-400) 02/28/21 11:30 MPV 11.6 fL (8.0-11.0) H 02/28/21 11:30 COVID-19 Source Nasal/Nares 02/28/21 11:20 SARS-CoV-2 (PCR) Negative (Negative) 02/28/21 11:20 Patient ABO/Rh O Positive 02/28/21 11:30 Antibody Screen NEGATIVE 02/28/21 11:30 Subjective Patient Reports: New Complaints (more uncomfortalbe. Using Nitrous Oxide) Interventions Pain Management Interventions: Comfort Measures , Ambulation, Soothing Environment and Tub and Nitrous Oxide (Used since AROM) , Well-tolerated by patient . Results Hemoglobin/Hematocrit: Hgb 13.2 g/dL (11.2-15.7) 02/28/21 11:30 Hct 38.6 % (36.0-46.0) 02/28/21 11:30 Abnormal Lab Findings: Abnormal Labs 02/28/21 11:30 MPV 11.6 H
[2021-03-01] MEDS: Lactated Ringers 1,000 ML 999 ML IV (15:00)
--- NOTE | 2021-03-01 15:00 | W.ANESPRE ---
General Info Date of Service Date Performed: 03/01/21 Height: 5 ft 2 in Weight: 98.883 kg Body Mass Index (BMI): 39.9 Meds Allergies and Home Medications Allergies Allergy/AdvReac Type Severity Reaction Status Date / Time erythromycin base Allergy Unknown Skin Rash Verified 02/05/21 16:07 latex Allergy Unknown Skin Rash Verified 02/05/21 16:07 penicillin G Allergy Unknown Skin Rash Verified 02/05/21 16:07 Home Medication Medication Instructions Recorded magnesium citrate 125 mg capsule 250 mg PO DAILY cap 07/24/20 prenat.vits,suly,ccq-lcbs-lbcpu 1 tab PO DAILY 07/24/20 lactobacillus combination no.8 3 3,000 mmu cells PO DAILY 08/04/20 billion cell capsule blood sugar diagnostic #100 ea 09/05/20 blood-glucose meter #1 ea 09/05/20 calcium carbonate-vitamin D3 500 ml PO 09/05/20 mg calcium-400 unit/5 mL oral liquid chromium picolinate 200 mcg tablet 200 mcg PO DAILY 09/05/20 lancets 28 gauge #100 ea 09/05/20 aspirin 162 mg PO DAILY 10/14/20 diphenhydramine HCl 25 mg capsule 25 mg PO QHS #90 cap 12/11/20 docusate sodium 100 mg capsule 100 mg PO BID #120 cap 12/11/20 psyllium husk 0.52 gram capsule 0.52 g PO DAILY 01/01/21 insulin NPH isoph U-100 human 100 4 unit SUBCUT BID #15 ml 01/15/21 unit/mL (3 mL) subcutaneous pen pen needle, diabetic 33 gauge x #100 ea 02/13/2112/10 Current Visit Medications: Current Medications Generic Name Dose Route Start Last Admin Trade Name Freq PRN Reason Stop Dose Admin Sodium Chloride 500 mls @ 0 mls/hr 02/28/21 10:28 Saline 500ml Bag IV PRN PRN As Directed Ringer's Solution 1,000 mls @ 200 mls/hr 02/28/21 10:30 IV INFUSION RAKESH IV Miscellaneous Supplies 1 each 02/28/21 10:30 Iv Access IV DIRECTED RAKESH Sodium Chloride 0 ml 02/28/21 10:28 Normal Saline Flush 10 Ml Syr IVP PRN PRN Terbutaline Sulfate 0.25 mg 02/28/21 10:28 Terbutaline 1 Mg/Ml Vial SC PRN PRN Zolpidem Tartrate 5 mg 02/28/21 16:22 Zolpidem 5 Mg Tab PO HS PRN MAY REPEAT X1 PRN PFSH Active Problems Active Problems: Problem Status Onset Code Encounter for induction of labor Z34.90 Dysuria during in third trimester O26.893, R30.0 Encounter for supervision of normal first , third trimester Z34.03 Sleep disturbance G47.9 Gestational diabetes mellitus (GDM) O24.419 Encounter for repeat Papanicolaou smear of cervix due to previous unsatisfactory results R87.615u Abdominal wall contusion S30.1XXA Pelvic pain during O26.899, R10.2 Elevated glucose tolerance test R73.09 Hyperthyroidism affecting O99.280, E05.90 Z34.90 TMJ syndrome M26.629 Oropharyngeal dysphagia R13.12 ADHD (attention deficit hyperactivity disorder) Medical History Medical History ADHD (attention deficit hyperactivity disorder) Reports she is doing well without medication in her college courses. Depressive disorder In Remission, Continue to Monitor Encounter for repeat Papanicolaou smear of cervix due to previous unsatisfactory results Unsat pap 08/04/20 - discussed with patient. Will repeat PP. 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, bilateral Oropharyngeal dysphagia TMJ syndrome Vitamin D deficiency Surgical History Surgical History S/P eye surgery (01/14/19) Surgery for nasolacrimal duct obstruction S/P tonsillectomy and adenoidectomy Tobacco Smoking/Tobacco Use Status: Never Tobacco: How many years used: 6 Alcohol Alcohol Intake: former Substance Use Substance use: Never Substance use type: does not use Prental History History 1 Para 0 Hx # Term Pregnancies 0 Multiple births 0 Hx # Pregnancies 0 Ectopic pregnancies 0 AB induced 0 Hx Number of Living Children 0 AB spontaneous 0 Vital Signs and Lab Results Vital Signs Most Recent Vital Signs in EMR: Most Recent Vital Signs Temp Pulse Resp BP Pulse Ox 36.7 C 111 H 18 137/85 99 03/01/21 14:10 03/01/21 14:38 03/01/21 09:10 08/05/21 14:38 02/28/21 22:43 Point of Care Results Point of Care Results: Finger Stick Blood Glucose 105 03/01/21 12:03 Lab Results Result Diagrams: 02/28/21 11:30 Blood Type / Crossmatch: Patient ABO/Rh O Positive 02/28/21 11:30 02/28/21 Antibody Screen NEGATIVE 02/28/21 11:30 02/28/21 Complete Blood Count: White Blood Count 8.65 10^3/uL (4.4-10.8) 02/28/21 11:30 02/28/21 Red Blood Count 4.47 10^6/uL (3.93-5.22) 02/28/21 11:30 02/28/21 Hemoglobin 13.2 g/dL (11.2-15.7) 02/28/21 11:30 02/28/21 Hematocrit 38.6 % (36.0-46.0) 02/28/21 11:30 02/28/21 Platelet Count 195 10^3/uL (130-400) 02/28/21 11:30 02/28/21 Complete Metabolic Panel: No Data to Display Liver Function Panel: No Data to Display Coagulation Panel: No Data to Display Cardiac Panel: No Data to Display Arterial Blood Gas: No Data to Display Venous Blood Gas: No Data to Display Pancreas Panel: No Data to Display Thyroid Panel: No Data to Display Infectious Disease: Coronavirus (COVID-19)(PCR) Negative (Negative) 02/28/21 11:20 02/28/21 Coronavirus 2019 Source Nasal/Nares 02/28/21 11:20 02/28/21 Blood Cultures: No Data to Display Toxicology Panel: Urine Amphetamines Screen Negative (Negative) 02/02/21 12:10 02/02/21 Urine Benzodiazepines Screen Negative (Negative) 02/02/21 12:10 02/02/21 Urine Barbiturates Screen Negative (Negative) 02/02/21 12:10 02/02/21 Urine Cocaine Screen Negative (Negative) 02/02/21 12:10 02/02/21 Urine Methadone Screen Negative (Negative) 02/02/21 12:10 02/02/21 Urine Opiates Screen Negative (Negative) 02/02/21 12:10 02/02/21 Ur Tricyclic Antidepressants Screen Negative (Negative) 02/02/21 12:10 02/02/21 Ur Tetrahydrocannabinol (THC) Scrn Negative (Negative) 02/02/21 12:10 02/02/21 Panel: No Data to Display Anesthesia Assessment and Plan Anesthesia History Personal History: No History of General Anesthesia Family History: No Family History of Anesthesia Complications Exercise Tolerance Exercise Tolerance: Metabolic Equivalents>4 Pertinent Negatives Pertinent Negatives: Other (GERD with ) Cardiac & Pulmonary Exam Cardiac Exam: Normal S1/S2 Heart Sounds Pulmonary Exam: Clear Bilateral Breath Sounds Airway Exam Known Difficult Airway: No Mallampati Class: 1 Mouth Opening: Normal (> 3cm) Thyromental Distance: Greater than 3 cm Neck Range of Motion: Full ROM Neck Circumference: Normal Teeth Condition: Normal Dentition ASA Classification ASA Score: ASA 2 Emergency Case?: No NPO Status NPO Status: NPO Clears >2 hours, Solids >8 hours Status Status: Confirmed Anesthesia Plan Resuscitation Status: Full Code Anesthesia Technique: Epidural Anesthesia Airway Planned: Natural Airway Monitors Used: Standard Monitors Preoperative Comments:: 30 yo female G1 currently 4-5 cm, using n2o, requesting epidural. previous LP multiple attempts.
--- NOTE | 2021-03-01 15:27 | W.PM.OBNL1 ---
Date of service: 03/01/21 Time of Service: 15:28 Informed Consent Informed Consent: Regional Anesthesia (Pt requesting additional labor analgesia - Epidural ) Pelvic Exam Dilation: 4 Effacement (%): 100 station: 0 Position: LOT Cervix Position: mid Consistency: soft Vaginal Exam Presentation: Cephalic Contractions Monitor Mode: External Contraction Frequency(min): 4 Contraction Duration(sec): 45 Intensity: Moderate Fetus A Monitor: External (US) Presentation: Cephalic Variability: Moderate (6-25 BPM) Categories: Category I FHR Rhythm: Regular Characteristics: Normal Accelerations: 15 X 15 Decelerations: None Amniotic Membrane Status: Ruptured Assessment and Plan Assessment and plan (1) Encounter for induction of labor: Status: Acute Assessment and plan: progressing in labor. Category 1 FHR tracing. will request labor analgesia. Objective Temp Pulse Resp BP Pulse Ox 98.6 F 105 H 18 137/85 100 03/01/21 15:22 03/01/21 15:23 03/01/21 09:10 03/01/21 14:38 03/01/21 15:23 Laboratory Results WBC 8.65 10^3/uL (4.4-10.8) 02/28/21 11:30 RBC 4.47 10^6/uL (3.93-5.22) 02/28/21 11:30 Hgb 13.2 g/dL (11.2-15.7) 02/28/21 11:30 Hct 38.6 % (36.0-46.0) 02/28/21 11:30 MCV 86.4 fL (80-95) 02/28/21 11:30 MCH 29.5 pg (27.0-33.0) 02/28/21 11:30 MCHC 34.2 % (32.0-36.0) 02/28/21 11:30 RDW 13.9 % (11.7-14.6) 02/28/21 11:30 Plt Count 195 10^3/uL (130-400) 02/28/21 11:30 MPV 11.6 fL (8.0-11.0) H 02/28/21 11:30 COVID-19 Source Nasal/Nares 02/28/21 11:20 SARS-CoV-2 (PCR) Negative (Negative) 02/28/21 11:20 Patient ABO/Rh O Positive 02/28/21 11:30 Antibody Screen NEGATIVE 02/28/21 11:30 Subjective Patient Reports: No new Complaints Interval history since last seen: Pt has been using Nitrous Oxide effectively to assist with labor contractions. Feeling that she would like to have epidural. Interventions Pain Management Interventions: Epidural (requested.) Continue current management. . . Results Hemoglobin/Hematocrit: Hgb 13.2 g/dL (11.2-15.7) 02/28/21 11:30 Hct 38.6 % (36.0-46.0) 02/28/21 11:30 Abnormal Lab Findings: Abnormal Labs 02/28/21 11:30 MPV 11.6 H
[2021-03-01] MEDS: FentaNYL/ROPIvacaine 2 mcg/ml and 0.1% 200 ML CADD Cassette EP (15:49)
--- NOTE | 2021-03-01 16:02 | ANES.NEUR_ITS ---
Epidural/Spinal Catheter Date Performed: 03/01/21 Procedure Start: 15:20 Procedure Stop: 16:03 Requesting Provider: Ivy Kyle Procedure Location: Obstetrics Reason Performed: Labor Epidural Standard Monitors Applied: Blood Pressure, SpO2 and See EMR for corresponding vital signs Patient Position: Sitting Sedation Given (Indicate Dose Given): No Sedation given Patient Mental Status: Awake Sterility: Hand Hygiene, Surgical Cap, Surgical Mask, Sterile Gloves, Sterile Drape/Sheet and Chlorhexidine Procedure Location: L3-L4 Interspace Epidural Needle: Tuohy 17 Guage Needle Length: 3.5 Inch Needle Approach: Midline Epidural Procedure: Skin Prepped, Sterile Drape Placed, 1% Lidocaine to skin and subcutaneous tissue with 25G needle, Tuohy Needle placed, RAFA to Saline Used, Epidural Catheter Placed, Negative Heme, Negative CSF Flow and Tuohy Needle Removed Catheter Placed?: Catheter Placed Test Dose (Indicate Dose Given): 3ml 1.5% Lid ocaine with 1:200K Epinephrine Given Loss of Resistance Depth (cm): 8 Catheter depth at skin (cm): 15 Dressing: [place]orb[place] Dressing Placed, Mastisol Used and Dressing reinforced with Tape Epidural Provider Bolus (Indicate Dose Given): Total bolus dose given in 3-5 ml divided doses (Infusion initiated at 1550,) and Total Ropivacaine 0.1% with Fentanyl 2mcg/ml Given from pump (ml) Dose:: 5mL Additives (Indicate Dose Given ): None Infusion Medication: Medication Infusion Began (1550) Medication Infusion: Ropivacaine 0.1% with Fentanyl 2mcg/ml Maintenance Infusion Rate (ml/hour): 10 PCEA Bolus Dose (ml): 5 Post Procedure Pain score (0-10): 0 Block Level: N/A Paresthesia: None Ultrasound: Used to monica site Number of Attempts (See previous attempts in note section): 2 Procedure Tolerated: No Complications and Patient tolerated well Procedure Outcome: Successful Performed By: Guillermina Ash Supervised By: Maryanne Alejandra
[2021-03-01] MEDS: Lactated Ringers 1,000 ML 125 ML IV (18:52)
--- NOTE | 2021-03-01 20:17 | W.PM.OBNL1 ---
Date of service: 03/01/21 Time of Service: 20:18 Informed Consent Informed Consent: Augmentation of Labor (Verbal consent obtained) and Regional Anesthesia (Pt requesting additional labor analgesia - Epidural ) Pelvic Exam Dilation: 4 Effacement (%): 100 station: -1 Cervix Position: mid Consistency: soft Vaginal Exam Presentation: Cephalic Contractions Contraction Frequency(min): 4 Contraction Duration(sec): 50 IUPC resting tone (mmHg): 30 IUPC peak pressure (mmHg): 30 Fetus A Monitor: Internal (FSE) Presentation: Cephalic Variability: Moderate (6-25 BPM) Categories: Category I FHR Rhythm: Regular Characteristics: Normal Accelerations: 15 X 15 Decelerations: Variable (x1.) Recurrence: Intermittent Amniotic Membrane Status: Ruptured Assessment and Plan Assessment and plan (1) Encounter for induction of labor: Status: Acute Assessment and plan: Pt's cervix has not dilated more and station has not demonstrated descent in past 2.5hrs. I informed pt and her of my desire to augment labor with Oxytocin. They are agreeable to the plan. (2) Gestational diabetes mellitus (GDM): Status: Acute Assessment and plan: PP CBG after supper was 160. Pt advised to decrease intake of jello. Objective Temp Pulse Resp BP Pulse Ox 98.2 F 115 H 18 106/70 99 03/01/21 19:52 03/01/21 19:52 03/01/21 19:52 03/01/21 19:52 03/01/21 19:52 Laboratory Results WBC 8.65 10^3/uL (4.4-10.8) 02/28/21 11:30 RBC 4.47 10^6/uL (3.93-5.22) 02/28/21 11:30 Hgb 13.2 g/dL (11.2-15.7) 02/28/21 11:30 Hct 38.6 % (36.0-46.0) 02/28/21 11:30 MCV 86.4 fL (80-95) 02/28/21 11:30 MCH 29.5 pg (27.0-33.0) 02/28/21 11:30 MCHC 34.2 % (32.0-36.0) 02/28/21 11:30 RDW 13.9 % (11.7-14.6) 02/28/21 11:30 Plt Count 195 10^3/uL (130-400) 02/28/21 11:30 MPV 11.6 fL (8.0-11.0) H 02/28/21 11:30 COVID-19 Source Nasal/Nares 02/28/21 11:20 SARS-CoV-2 (PCR) Negative (Negative) 02/28/21 11:20 Patient ABO/Rh O Positive 02/28/21 11:30 Antibody Screen NEGATIVE 02/28/21 11:30 Subjective Patient Reports: No new Complaints Interval history since last seen: Patient remains comfortable with epidural. Interventions Pain Management Interventions: Epidural (working well. Tavares placed to gravity drainage.) ./ Augmentation (Lack of cervical change or descent of the presenting part) , Pitocin rate (mU/min): 2 will begin low dose titration protocol. . Results Hemoglobin/Hematocrit: Hgb 13.2 g/dL (11.2-15.7) 02/28/21 11:30 Hct 38.6 % (36.0-46.0) 02/28/21 11:30 Abnormal Lab Findings: Abnormal Labs 02/28/21 11:30 MPV 11.6 H
[2021-03-01] MEDS: Oxytocin/Normal Saline 30 UNIT/500 ML BAG 2 UNITS IV (21:04)
--- NOTE | 2021-03-01 22:02 | W.PM.OBNL1 ---
Date of service: 03/01/21 Time of Service: 22:02 Informed Consent Informed Consent: Augmentation of Labor (Verbal consent obtained) and Regional Anesthesia (Pt requesting additional labor analgesia - Epidural ) Pelvic Exam Dilation: 7 Effacement (%): 100 station: 0 Position: ROT Cervix Position: mid Consistency: soft Contractions Contraction Frequency(min): 2 Contraction Duration(sec): 50 IUPC resting tone (mmHg): 20 IUPC [place] units: 200 Fetus A Monitor: Internal (FSE) Presentation: Cephalic Variability: Moderate (6-25 BPM) Categories: Category I FHR Rhythm: Regular Characteristics: Normal Accelerations: 15 X 15 Decelerations: None Objective Temp Pulse Resp BP Pulse Ox 98.2 F 120 H 18 120/81 99 03/01/21 19:52 03/01/21 20:47 03/01/21 19:52 03/01/21 20:47 03/01/21 19:52 Laboratory Results WBC 8.65 10^3/uL (4.4-10.8) 02/28/21 11:30 RBC 4.47 10^6/uL (3.93-5.22) 02/28/21 11:30 Hgb 13.2 g/dL (11.2-15.7) 02/28/21 11:30 Hct 38.6 % (36.0-46.0) 02/28/21 11:30 MCV 86.4 fL (80-95) 02/28/21 11:30 MCH 29.5 pg (27.0-33.0) 02/28/21 11:30 MCHC 34.2 % (32.0-36.0) 02/28/21 11:30 RDW 13.9 % (11.7-14.6) 02/28/21 11:30 Plt Count 195 10^3/uL (130-400) 02/28/21 11:30 MPV 11.6 fL (8.0-11.0) H 02/28/21 11:30 COVID-19 Source Nasal/Nares 02/28/21 11:20 SARS-CoV-2 (PCR) Negative (Negative) 02/28/21 11:20 Patient ABO/Rh O Positive 02/28/21 11:30 Antibody Screen NEGATIVE 02/28/21 11:30 Subjective Patient Reports: New Complaints (Feeling more right-sided hip pain) Interventions Augmentation (4) , Pitocin rate (mU/min): 4 pt is kaleigh contx. Cervix is changing, lower station. Continue with current Oxytocin dose . Results Hemoglobin/Hematocrit: Hgb 13.2 g/dL (11.2-15.7) 02/28/21 11:30 Hct 38.6 % (36.0-46.0) 02/28/21 11:30 Abnormal Lab Findings: Abnormal Labs 02/28/21 11:30 MPV 11.6 H
[2021-03-02] VITALS (10 sets, daily range): BP systolic 110–153; BP diastolic 57–77; PULSE 85–120; RESP 16; TEMP 36.7–36.9; O2SAT 99
[2021-03-02] MEDS: Lidocaine 1% Multi-Dose 20 ML VIAL IJ (03:00)
[2021-03-02] MEDS: Dibucaine 1% 28 GM TUBE TP ×2 (04:07→22:34)
[2021-03-02] MEDS: Ibuprofen 600 MG TAB PO ×3 (04:08→18:47)
[2021-03-02] MEDS: Acetaminophen 325 MG TAB 650 MG PO ×3 (04:08→22:34)
--- NOTE | 2021-03-02 08:06 | W.OBDELIVERY ---
Date of service: 03/02/21 Time of Service: 08:17 OB Labor/ Delivery Information Baby A Delivery Delivery Method: Spontaneaous Presentation: Cephalic Cephalic Position: Vertex Vertex Position: Right Occipital Anterior Cord Description-Baby A: 3 Vessels Cord Description Comment: normal appearance Amniotic Fluid: Clear Estimated Blood Loss: 100 Delivery Outcome: Liveborn Complications: none Infant Transferred: Remains with Mother Note: She will be named Ivone Beltran Doctor: Ivy Kyle Nurse: Marlene Robison Nurse: Traci Flannery Labor/Delivery Information Number of Babies in Womb: 1 Steroids Given: None Reason Steroids Not Administered: N/A Group Beta Strep: Negative Antibiotics Administered: No Rubella Status: Immune Blood Type: O+ Varicella Immunity: Immune Maternal Complications: None Shoulder Dystocia: No Stages of Labor Onset of Labor Date: 03/01/21 Onset of Labor Time: 18:00 Complete Dilatation Date: 03/01/21 Complete Dilatation Time: 23:40 Labor - Stage 1 Duration: 0 minutes ROM Baby A: 03/01/21 ROM Baby A: 09:53 ROM Total Time- Baby A: [id number] Infant Delivery Date-Baby A: 03/02/21 Delivery Time-Baby A: 02:22 Labor Stage 2 Duration: 2 hours and 42 minutes Placenta Delivery Date-Baby A: 03/02/21 Placenta Delivery Time-Baby A: 02:28 Labor-Stage 3 Duration: 6 minutes Total Length of Labor-Baby A: 8 hours and 22 minutes Placenta Cultured: No Placenta Status: Delivered Baby A Gender: Female (ivone) Gestational Status: Term (39-41.6 wks) Gestational Age in Weeks/Days: 40 Weeks and 0 Days weight: 6 lb 14.937 oz Length-Baby A: 19.5 in Head Circumference-Baby A: 13 in Score-1 Minute Interval(Baby A) Heart Rate-1 minute: 100 BPM or Greater Respiratory Effort- 1 minute: Spontaneous/Strong Cry Muscle Tone-1 minute: Active Movement Reflex Response-1 minute: Prompt Response Color-1 minute: Pallor or Cyanosis Total Score-1 minute: 8 Score-5 Minute Interval(Baby A) Heart Rate- 5 minute: 100 BPM or Greater Respiratory Effort-5 minute: Spontaneous/Strong Cry Muscle Tone-5 minute: Active Movement Reflex Response-5 minute: Prompt Response Color-5 minute: Bluish Hands or Feet Total Score- 5 minute: 9 Procedure Procedures: Cervical Ripening Interventions Pain Management Interventions: Epidural ./ Augmentation , Pitocin rate (mU/min): 4/ Induction Indication: Gestational Diabetes , Type of Induction: Misoprostol (3 doses) administration: Oral and Pitocin (initiated ~ 2100 03/01/21) rate at(mU/min): 4 4 mu/min maximum infusion rate . ,
--- NOTE | 2021-03-02 14:00 | W.ANESPOSTOP ---
Postoperative Evaluation Date, Time and Location Date Performed: 03/02/21 Time Performed: 06:10 Patient Location: Obstetrics Vital Signs Most Recent Imported Vital Signs: Most Recent Vital Signs Temp Pulse Resp BP Pulse Ox 36.9 C 85 16 131/71 99 03/02/21 08:00 03/02/21 08:00 03/02/21 08:00 03/02/21 08:00 03/02/21 05:29 Pain Score Most Recent Pain Score: Most Recent Pain Score Pain Level 3 03/02/21 12:06 Assessment Mental Status: Awake (Alert & Oriented to Patient Baseline) Airway and Respiratory Function: Patent airway with normal (patient baseline) respiratory exam Cardiovascular Function: Hemodynamically Stable Hydration Status: Adequately Hydrated Nausea & Vomiting: No Nausea or Vomiting Pain: Pt. Denies Any Pain Peripheral Nerve Block: Patient did not receive a nerve block
[2021-03-03 00:08] VITALS: BP 113/72; PULSE 93; RESP 16; TEMP 36.5
[2021-03-03] MEDS: Ibuprofen 600 MG TAB PO ×3 (01:30→16:44)
[2021-03-03 07:40] VITALS: BP 121/89; PULSE 90; RESP 16; TEMP 36.4; O2SAT 97
[2021-03-03] MEDS: Acetaminophen 325 MG TAB 650 MG PO ×2 (09:03→16:45)
[2021-03-03] MEDS: Docusate Sodium 100 MG CAP PO (09:05)
--- NOTE | 2021-03-03 11:40 | OBPPV_ITS ---
Date of service: 03/03/21 Time of Service: 11:40 Assessment and Plan Assessment and plan (1) Encounter for induction of labor: Status: Acute (2) (spontaneous vaginal delivery): Status: Acute (3) Gestational diabetes mellitus (GDM): Status: Acute Assessment and plan: Will have patient check CBGs . Plan 2-hour Glucose Tolerance Test . Qualifiers: Gestational diabetes mellitus control: insulin-controlled Trimester: third trimester Qualified Code(s): O24.414 - Gestational diabetes mellitus in , insulin controlled Subjective Subjective Interval history: Continues delivery on 03/02/2021 of a viable female named Stacia. Patient has been attempting to breast-feed. She is interested in staying another day to receive assistance with feeding Patient comments: Tolerating diet Patient's Mood: Congruent [place] feeding status: Exclusively breast feeding Narrative: SP cancer visit patient today and assist with feeding. Exam Physical Exam Vital signs: Temp Pulse Resp BP Pulse Ox 97.5 F L 90 16 121/89 97 03/03/21 07:40 03/03/21 07:40 03/03/21 07:40 03/03/21 07:40 03/03/21 07:40 Vital Signs Reviewed: Yes Constitutional Constitutional: no acute distress HEENT Exam HEENT Exam: Not Done Neck Exam Neck Exam: Normal Respiratory Exam Respiratory Exam: Normal Cardiovascular Exam Cardiovascular Exam: Normal Abdominal Exam Comments: Nontender Fundal Exam Fundus: Below Umbilicus Rectal Exam Rectal Exam: Not Done Exam Patient deferred: external exam and perineal exam Perineum: Normal External: Present normal urethra appearance Extremities Exam Extremity Exam: Normal Back/Spine/Pelvis Exam Back Exam: Normal Skin Exam Skin Exam: Normal Psychiatric Exam Psychiatric Exam: Normal Results Hemoglobin/Hematocrit: Hgb 13.2 g/dL (11.2-15.7) 02/28/21 11:30 Hct 38.6 % (36.0-46.0) 02/28/21 11:30 Abnormal Lab Findings: Abnormal Labs 02/28/21 11:30 MPV 11.6 H
[2021-03-03 13:05] VITALS: BP 109/72; PULSE 94; RESP 16; O2SAT 97
[2021-03-03 21:05] VITALS: BP 136/88; PULSE 94; RESP 18; TEMP 37.6
[2021-03-04] MEDS: Ibuprofen 600 MG TAB PO ×2 (02:39→10:59)
[2021-03-04] MEDS: Acetaminophen 325 MG TAB 650 MG PO ×2 (02:39→11:00)
[2021-03-04 07:30] VITALS: BP 122/78; PULSE 96; RESP 16; TEMP 36.8; O2SAT 96
[2021-03-04] MEDS: Docusate Sodium 100 MG CAP PO (07:39)
--- NOTE | 2021-03-04 11:13 | DSE_ITS ---
Date of service: 03/04/21 Time of Service: 11:13 DS: Diagnosis Discharge Diagnosis (1) Encounter for induction of labor: Status: Acute (2) (spontaneous vaginal delivery): Status: Acute Asessment and Plan: 03/02/21. Kahlil Palomo (3) Gestational diabetes mellitus (GDM): Status: Acute Discharge Plan Disposition Patient Disposition: HOME Condition: Good Discharge Details Reason For Visit: IOL- Insulin Dep GDM Admit Date/Time: 02/28/21 10:28 Admit Provider: Cece Smallwood Attending Provider: Cece Smallwood Primary [facility] Course: Patient is a 30-year-old female was admitted on 12/29/2020 for induction of labor secondary to insulin requiring gestational diabetes. She underwent cervical ripening with misoprostol and augmentation of labor with oxytocin and had a successful vaginal delivery without complications over an intact perineum of a viable female named 'Ivone' early in the morning of 03/02/2021. She was discharged home successfully breast-feeding on day #2. Charge medications: Ibuprofen 600 mg every 6 hours as needed for pain. She was instructed to stop her insulin injections. Plans to have her follow-up with Dr. Smallwood or Dr. Kyle in approximately 1 week for assessment of bonding and breast-feeding. Home Meds and New Rx's Prescriptions: Discontinued Humulin N NPH Insulin KwikPen 100 unit/mL (3 mL) insulin pen 4 unit subcut BID Qty: 15 RF: 3 aspirin 81 mg Tablet,Chewable 162 mg PO DAILY RF: 0 No Action Adult Probiotic 3 billion cell capsule 3,000 mmu cells PO DAILY RF: 0 chromium picolinate 200 mcg tablet 200 mcg PO DAILY RF: 0 calcium carbonate-vitamin D3 500 mg calcium- 400 unit/5 mL liquid PO RF: 0 (DME) blood-glucose meter [FreeStyle Lite Meter] Kit See Rx Instructions .ROUTE .MEDSUPPLY Qty: 1 RF: 0 (DME) FreeStyle Lite Strips Strip See Rx Instructions .ROUTE .MEDSUPPLY Qty: 100 RF: 4 (DME) lancets [FreeStyle Lancets] 28 gauge misc See Rx Instructions .ROUTE .MEDSUPPLY Qty: 100 RF: 4 psyllium husk [Fiber (psyllium husk)] 0.52 gram capsule 0.52 g PO DAILY RF: 0 prenat.vits,suly,bur-dxye-lldwi Tablet 1 tab PO DAILY RF: 0 magnesium citrate 125 mg capsule 250 mg PO DAILY RF: 0 diphenhydramine HCl [Benadryl] 25 mg capsule 25 mg PO QHS Qty: 90 RF: 2 docusate sodium [Colace] 100 mg capsule 100 mg PO BID Qty: 120 RF: 2 (DME) Comfort EZ Pen [place] 33 gauge x 5/16 needle See Rx Instructions .ROUTE .MEDSUPPLY Qty: 100 RF: 0 Discharge Instructions Additional Instructions: You do not need to test your blood sugar or take any insulin. There will be a glucose test at 6 weeks after delivery. Stand Alone Forms: BC Instructions, BC Post Vaginal Deliver Activity:: Activity as Tolerated Equipment/Supplies:: No Equipment Needed Diet:: As Tolerated Discharge Orders Discharge Orders: Discharge Order (Routine); Ordered 03/04/21 Ordered By: Ivy Kyle OB:DS Summary Summary Vaginal Delivery Method: Spontaneaous Episiotomy Description: None Laceration Description: Perineal Laceration Extension: First Degree Contraception Discussed Contraception Discussed: No, Infant Gender-Baby A: Female (ivone) weight: 6 lb 14.937 oz Status at Discharge Functional status at discharge: independent ambulation Overall status at discharge: patient is progressing back to baseline Mental Status: mental status grossly normal Speech and Movement: speech and movement normal Mood: congruent mood Affect: normal affect Time Spent with Patient providing and/or coordinating discharge services: Less than 30 minutes Exam Physical Exam Vital signs: Temp Pulse Resp BP Pulse Ox 98.2 F 96 H 16 122/78 96 03/04/21 07:30 03/04/21 07:30 03/04/21 07:30 03/04/21 07:30 03/04/21 07:30 Vital Signs Reviewed: Yes Constitutional Constitutional: no acute distress HEENT Exam HEENT Exam: Normal Neck Exam Neck Exam: Not Done Respiratory Exam Respiratory Exam: Normal Cardiovascular Exam Cardiovascular Exam: Normal Fundal Exam Fundus: Below Umbilicus Rectal Exam Rectal Exam: Not Done Exam Patient deferred: perineal exam Perineum: Normal External: Present normal urethra appearance Extremities Exam Extremity Exam: Normal Back/Spine/Pelvis Exam Back Exam: Not Done Skin Exam Skin Exam: Normal Neurological Exam Neurological Exam: Not Done Psychiatric Exam Psychiatric Exam: Normal [facility] Medical History ADHD (attention deficit hyperactivity disorder) Reports she is doing well without medication in her college courses. Depressive disorder In Remission, Continue to Monitor Encounter for repeat Papanicolaou smear of cervix due to previous unsatisfactory results Unsat pap 08/04/20 - discussed with patient. Will repeat PP. 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 What is your relationship status?: Panel score (0-1 are the most socially isolated patients): 1 Araceli/Restoration: Adventism Special araceli needs: No (Spiritualist) Do you feel safe at home: Yes Do you feel safe in your relationship?: Yes Female Reproductive History Menstrual control method: condoms History History 1 Para 0 Hx # Term Pregnancies 1 Multiple births 0 Hx # Pregnancies 0 Ectopic pregnancies 0 AB induced 0 Hx Number of Living Children 1 AB spontaneous 0 DS: Data Vitals/I&O Vitals and I&O: Vital Signs Temperature 98.2 F 03/04/21 07:30 Pulse 96 H 03/04/21 07:30 Pulse Rhythm Regular 03/03/21 20:05 Respiratory Rate 16 03/04/21 07:30 Blood Pressure 122/78 03/04/21 07:30 Blood Pressure Mean 92 03/04/21 07:30 Pulse Oximetry 96 03/04/21 07:30 Pain Level 4 03/04/21 11:00 Comment 03/01/21 12:12
== END 2021-03-04 14:25 | disposition home or self-care (01) | DRG 806 ==
PROVIDERS: Admitting Provider Obstetrics & Gynecology; PCP Naturopath; Visit Provider Obstetrics & Gynecology
DX: O24.424 Gestational diabetes mellitus in childbirth, insulin controlled (principal); O99.354 Diseases of the nervous system complicating childbirth; Z37.0 Single live birth; Z3A.39 39 weeks gestation of pregnancy; O99.344 Other mental disorders complicating childbirth; F41.8 Other specified anxiety disorders; O69.89X0 Labor and delivery complicated by other cord complications, not applicable or unspecified; R32 Unspecified urinary incontinence; G51.2 Melkersson's syndrome; O75.89 Other specified complications of labor and delivery
CPT/HCPCS: 85027; 86850; 86900; 86901; 87635; J3490

== ENCOUNTER 2021-03-08 15:24 | Outpatient (CLI) | payer OTHER, SELFPAY ==
[2021-03-08 14:22] LABS: HCT 40.9 % (36.0-46.0); HGB 13.7 g/dL (11.2-15.7); MCH 29.3 pg (27.0-33.0); MCHC 33.5 % (32.0-36.0); MCV 87.4 fL (80-95); Platelet Count 263 10^3/uL (130-400); RBC 4.68 10^6/uL (3.93-5.22); RDW 13.5 % (11.7-14.6); RDW-SD 43.6 fL; WBC 10.31 10^3/uL (4.4-10.8)
[2021-03-08 14:41] LABS: ALT 76 U/L (14-59); AST 29 U/L (15-37); Albumin 2.8 g/dL (3.4-5.0); Alkaline Phosphatase 133 U/L (46-116); Anion Gap 9.8 mmol/L (3-11); BUN 15 mg/dL (7-18); Bilirubin, Total 0.2 mg/dL (0.2-1.0); CO2 23.2 mmol/L (21.0-32.0); CREATININE 0.8 mg/dL (0.55-1.02); Calcium 9.1 mg/dL (8.5-10.1); Chloride 106 mmol/L (98-107); Glucose 100 mg/dL (74-106); Potassium 4.4 mmol/L (3.5-5.1); Sodium 139 mmol/L (136-145); Total Protein 6.8 g/dL (6.4-8.2)
== END 2021-03-08 15:25 | disposition home or self-care (01) ==
LOC: LBO 15:25
PROVIDERS: PCP Naturopath; Visit Provider Obstetrics & Gynecology Gynecology
DX: O16.5 Unspecified maternal hypertension, complicating the puerperium (principal)
CPT/HCPCS: 36415; 80053; 85027; 84550

== ENCOUNTER 2021-03-10 13:58 | Outpatient (CLI) | payer OTHER, SELFPAY ==
[2021-03-10 11:06] LABS: HCT 43.1 % (36.0-46.0); HGB 14.4 g/dL (11.2-15.7); MCHC 33.4 % (32.0-36.0); MCV 86.9 fL (80-95); MPV 11.2 fL (8.0-11.0); Platelet Count 305 10^3/uL (130-400); RBC 4.96 10^6/uL (3.93-5.22); RDW 13.2 % (11.7-14.6); RDW-SD 41.5 fL; WBC 7.95 10^3/uL (4.4-10.8)
[2021-03-10 11:07] VITALS: BP 134/80; RESP 16; TEMP 36.8
[2021-03-10 11:19] LABS: ALT 59 U/L (14-59); AST 21 U/L (15-37); Alkaline Phosphatase 136 U/L (46-116); Anion Gap 11.8 mmol/L (3-11); BUN 14 mg/dL (7-18); Bilirubin, Total 0.3 mg/dL (0.2-1.0); CO2 23.2 mmol/L (21.0-32.0); CREATININE 0.8 mg/dL (0.55-1.02); Calcium 9.1 mg/dL (8.5-10.1); Chloride 106 mmol/L (98-107); Glucose 98 mg/dL (74-106); Potassium 4.1 mmol/L (3.5-5.1); Sodium 141 mmol/L (136-145); Total Protein 7.1 g/dL (6.4-8.2)
== END 2021-03-10 13:59 | disposition home or self-care (01) ==
LOC: BCD 03-12 13:58
PROVIDERS: PCP Naturopath; Visit Provider Obstetrics & Gynecology
DX: O13.5 Gestational [pregnancy-induced] hypertension without significant proteinuria, complicating the puerperium (principal)
CPT/HCPCS: 80053; 85027; 99211

== ENCOUNTER 2021-04-19 02:04 | Outpatient (CLI) | payer OTHER, SELFPAY ==
[2021-04-19 08:43] LABS: HCT 43.9 % (36.0-46.0); HGB 14.5 g/dL (11.2-15.7); MCH 28.9 pg (27.0-33.0); MCV 87.5 fL (80-95); MPV 11.3 fL (8.0-11.0); Platelet Count 231 10^3/uL (130-400); RBC 5.02 10^6/uL (3.93-5.22); RDW 12.7 % (11.7-14.6); RDW-SD 40.5 fL; WBC 7.54 10^3/uL (4.4-10.8)
[2021-04-19 09:00] LABS: ALT 80 U/L (14-59); AST 35 U/L (15-37); Albumin 3.7 g/dL (3.4-5.0); Alkaline Phosphatase 124 U/L (46-116); Anion Gap 8.8 mmol/L (3-11); BUN 14 mg/dL (7-18); Bilirubin, Total 0.4 mg/dL (0.2-1.0); CO2 26.2 mmol/L (21.0-32.0); CREATININE 0.8 mg/dL (0.55-1.02); Calcium 9.3 mg/dL (8.5-10.1); Chloride 106 mmol/L (98-107); Glucose 90 mg/dL (74-106); Potassium 4.1 mmol/L (3.5-5.1); Sodium 141 mmol/L (136-145); Total Protein 7.5 g/dL (6.4-8.2); Uric Acid 7.2 mg/dL (2.6-6.0)
[2021-04-19 10:35] LABS: Glucose 1 Hour 140 mg/dL
[2021-04-19 11:25] LABS: GTT Comment See Comments
== END 2021-04-19 02:05 | disposition home or self-care (01) ==
LOC: LBO 02:04
PROVIDERS: PCP Naturopath; Visit Provider Obstetrics & Gynecology Gynecology
DX: O16.5 Unspecified maternal hypertension, complicating the puerperium; R10.11 Right upper quadrant pain; Z86.32 Personal history of gestational diabetes
CPT/HCPCS: 36415; 80053; 85027; 82951; 84550

== ENCOUNTER 2021-04-23 11:12 | Outpatient (REF) | payer OTHER, SELFPAY ==
--- NOTE | 2021-04-23 09:25 | PAPFT_PTH ---
PATIENT: Ele Kimble LOC: [facility] U#:[id number] AGE/SX: 30/F ROOM: RE04/23/[address]: Cece Smallwood DO : 1990 BED: DIS: 04/23/2021 SPEC #: [id number] RECD: 04/23/21 13:03 STATUS: CARLEE REQ #: [id number] CIERRA: 04/23/21 09:[address]: Cece Smallwood DEPT: [facility] Cytology RECD BY: Jenny Dale ENTERED: 04/23/21 13:04 SP TYPE: PAPFT OTHR DR: Nito Castellanos Tissues: 1 - CX/ENDOCX FOR PAP SMEARS Procedures: PAP THIN PREP/UVM Screening HPV DNA PROBE Comments: [id number]
--- NOTE | 2021-05-01 14:23 | W.NUTRFU ---
Date of service: 05/01/21 Time of Service: 14:23 Nutritional Follow up NOTE: Spoke to Carlos Alberto on phone today. She has completed a 3 day food record which indicates average intake: 1200-1500kcal, 50-60 g protein, 40-50 g fat. She is following a lower fat diet due to cholelithiasis at 5 weeks post . She is breast feeding without difficulty. Reviewed macronutrient intake, at this time she is meeting about 50% of caloric and fat needs, 100% protein needs. Reviewed ways to increase caloric intake without adding foods that may cause more GI upset. She reports no RUQ pain x 8 days. Encouraged her to continue current meal plan for another 6 days and then to slowly increase caloric and fat intake as tolerated. Garett to follow up prn. Time Spent in Nutritional Counseling and Treatment: 30
== END 2021-04-23 11:13 | disposition home or self-care (01) ==
LOC: LBN 11:12
PROVIDERS: PCP Naturopath; Visit Provider Obstetrics & Gynecology
DX: Z12.4 Encounter for screening for malignant neoplasm of cervix (principal); Z11.51 Encounter for screening for human papillomavirus (HPV)
CPT/HCPCS: 88142; 87624

== ENCOUNTER 2021-07-01 12:57 | Emergency (ER) | payer OTHER, SELFPAY ==
--- NOTE | 2021-07-01 13:08 | ED.GENADUL_ITS ---
Discharge Plan Disposition Patient Disposition: AGAINST MEDICAL ADVICE Condition: Stable Discharge Details Clinical Impression: Cholelithiasis, Transaminitis Primary Care Provider: Nito Castellanos ED Provider: Thuy Sarah Home Meds and New Rx's Prescriptions: Continued docusate sodium [Colace] 100 mg capsule 100 mg PO BID Qty: 120 RF: 2 lypo optimize capsule PO RF: 0 chelidonium tablet PO RF: 0 Discharge Instructions Instructions: Biliary Colic (ED) Discharge Data Discharge Date/Time-TO BE ENTERED AT DEPARTURE: 07/01/21 16:10 Medical Decision Making 1315 -- 30-year-old female with a history of cholelithiasis presents with right upper quadrant abdominal pain and vomiting after eating a bagel with avocado 90 minutes ago. Patient appears uncomfortable. Vitals within normal limits. She has tenderness to her right upper quadrant but no rigidity or guarding. Differential diagnosis includes biliary colic, cholecystitis, gastritis, PUD, GERD. Will place an IV, bolus IV fluids, screening labs, IV Zofran and IV Tylenol as patient declines narcotics at this time. 1415 -- Labs reviewed. White blood cell count normal at 9. Normal electrolytes. Alk phos 153. AST 80. ALT 80. Lipase within normal limits. Discussed with radiology and ultrasound available to come in after 3 PM Patient reassessed and her pain and nausea is completely resolved. 1530 --while I was in another room, patient reported to the nurse that she needed to leave as her 4-month-old daughter was upset in the car and her needed help in the car outside. Patient stated she needed to leave. She signed an AMA form with the nurse as her ultrasound is still pending. Her urine test was negative. A clean-catch sample was not obtained and patient was unable to give another urine sample prior to discharge but she denied any urinary symptoms so UTI unlikely. 1615 -- Ultrasound resulted after pt left and noted cholelithiasis and fatty liver but no signs of cholecystitis. Pt called on her cell phone and informed of her results -- patient states her pain remains improved. Although she has transaminitis, her bilirubin and white blood cell count are normal, she is afebrile and her pain is controlled. Advised that she call general surgery tomorrow for follow-up to schedule potential cholecystectomy. Patient also placed on surgery list for follow-up this week for reevaluation. Medical Records Medical records reviewed: Yes I reviewed the patient's medical records. Imaging Data Radiologic Study: Radiologist's impression: US Abdomen, Limited; Right Upper Quadrant Exam date and time: 07/01/2021 2:07 PM Age: 30 years old Clinical indication: Other: Ruq pain since this am TECHNIQUE: Imaging protocol: US abdomen. Real time ultrasound with image documentation. Limited exam focused on the right upper quadrant. COMPARISON: US ABDOMEN 04/12/2021 8:51 AM FINDINGS: Liver: Echogenic liver suggestive of fatty change. Gallbladder: Stones and sludge at the gallbladder. No gallbladder wall thickening or pericholecystic fluid to suggest cholecystitis. Common bile duct: Normal. No stones. No dilation. Common bile duct 4 mm. Pancreas: Visualized pancreas is unremarkable. Right kidney: Normal. No mass. No hydronephrosis. Kidney length 12.2 cm. Portal venous: Portal vein patent with hepatopedal flow. IMPRESSION: 1. Cholelithiasis. 2. Fatty liver. Lab Data Lab results reviewed: Yes I reviewed the patient's lab results. Labs: Laboratory Tests Range/Units 07/01/21 07/01/21 13:15 13:15 WBC (4.4-10.8) 10^3/uL 9.11 RBC (3.93-5.22) 10^6/uL 5.15 Hgb (11.2-15.7) g/dL 15.1 Hct (36.0-46.0) % 45.4 MCV (80-95) fL 88.2 MCH (27.0-33.0) pg 29.3 MCHC (32.0-36.0) % 33.3 RDW (11.7-14.6) % 12.2 Plt Count (130-400) 10^3/uL 263 MPV (8.0-11.0) fL 11.8 H Immature Gran % 0.3 Neutrophils % 55.7 Lymphocytes % 33.8 Monocytes % 6.8 Eosinophils % 2.5 Basophils % 0.9 Nucleated RBC % % 0 Absolute Neutrophils (1.2-6.7) 10^3/uL 5.07 Absolute Lymphocytes (1.2-3.4) 10^3/uL 3.08 Absolute Monocytes (0.1-0.8) 10^3/uL 0.62 Absolute Eosinophils (0.0-0.7) 10^3/uL 0.23 Absolute Basophils (0.0-0.2) 10^3/uL 0.08 Sodium (136-145) mmol/L 141 Potassium (3.5-5.1) mmol/L 3.5 Chloride (98-107) mmol/L 103 Carbon Dioxide (21.0-32.0) mmol/L 28.0 Anion Gap (3-11) mmol/L 10.0 BUN (7-18) mg/dL 15 Creatinine (0.55-1.02) mg/dL 0.7 Estimated GFR/1.73 m2 (mL/min/1.73m2) >= 60.00 Glucose (74-106) mg/dL 111 H Calcium (8.5-10.1) mg/dL 9.6 Total Bilirubin (0.2-1.0) mg/dL 0.4 AST (15-37) U/L 80 H ALT (14-59) U/L 80 H Alkaline Phosphatase (46-116) U/L 153 H Total Protein (6.4-8.2) g/dL 7.7 Albumin (3.4-5.0) g/dL 3.9 Lipase (73-393) U/L 60 HPI General Mode of arrival: ambulatory . Date/Time Provider Initiated Documentation: 07/01/21 13:06 . Limitations to Documentation: no limitations . Information obtained by: patient . HPI Narrative: Patient is a 30-year-old female with known history of cholelithiasis presents with right upper quadrant abdominal pain and vomiting since eating a bagel with avocado 90 minutes ago. Patient states she was feeling fine prior to eating and then had onset of sharp right-sided upper abdominal pain consistent with gallstones in the past. She states she vomited a few times which is mainly food. She states the pain is currently 8/10. She has not had any medication for pain. She states she is currently breast-feeding a 4-month-old baby. She denies any known fever or urinary symptoms. She states she had a normal bowel movement this morning. She denies any recent travel or recent antibiotics. Related Data Home Medications Medication Instructions Recorded Confirmed docusate sodium 100 mg capsule 100 mg PO BID #120 cap 12/11/20 07/01/21 chelidonium PO 05/07/21 lypo optimize PO 05/07/21 Previous Rx's Medication Instructions Recorded docusate sodium 100 mg capsule 100 mg PO BID #120 cap 12/11/20 Allergies Allergy/AdvReac Type Severity Reaction Status Date / Time erythromycin base Allergy Unknown Skin Rash Verified 05/07/21 15:16 latex Allergy Unknown Skin Rash Verified 05/07/21 15:16 penicillin G Allergy Unknown Skin Rash Verified 05/07/21 15:16 General ROSALES: 3 Review of Systems All systems reviewed & are unremarkable except as noted in HPI and below Constitutional Constitutional: Reports as per HPI, Denies chills and Denies fever(s) Eyes Eyes: Denies blurry vision ENT Ears, Nose, Mouth, and Throat: Denies dizziness, Denies sore throat and Denies throat swelling Cardiovascular Cardiovascular: Denies chest pain and Denies dyspnea Respiratory Respiratory: Denies cough and Denies dyspnea Gastrointestinal Gastrointestinal: Reports abdominal pain, Denies diarrhea and Reports vomiting Genitourinary Genitourinary: Denies hematuria and Denies dysuria Musculoskeletal Musculoskeletal: Denies back pain and Denies numbness Integumentary/Breasts Skin/Breast: Denies lesions and Denies rash Neurologic Neurologic: Denies dizziness, Denies localized weakness and Denies numbness Allergic/Immunologic Allergic/Immunologic: Denies throat swelling [facility] Active Problem List (Updated 07/01/21 @ 17:42 by Thuy Sarah DO) Cholelithiasis (Acute) Transaminitis (Acute) Cholelithiasis (Acute) RUQ pain (Acute) Sleep disturbance (Acute) Elevated glucose tolerance test (Acute) TMJ syndrome (Chronic) Oropharyngeal dysphagia (Chronic) ADHD (attention deficit hyperactivity disorder) (Chronic) Medical History (Updated 07/01/21 @ 17:42 by Thuy Sarah DO) Encounter for repeat Papanicolaou smear of cervix due to previous unsatisfactory results Unsat pap 08/04/20 - discussed with patient. Will repeat PP. 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 Kahlil Palomo. Vitamin D deficiency Surgical History S/P eye surgery (01/14/19) Surgery for nasolacrimal duct obstruction S/P tonsillectomy and adenoidectomy Family History Mother Kidney disease S/p kidney transplant Type 1 diabetes mellitus Hypertension Father Gout Colon polyps Alcohol abuse Maternal Grandfather No problems noted. 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 Date GA/Weeks # Outcome Route Wgt Sex Labor Lgth Anesthes ia Location [facility] 03/02/21 40 No Successful vaginal 3143.962 g Female Ivy Kyle Delivery Date: 03/02/21 IOL for GDM. Insulin requiring. Stacia. Transient PP BP elevation. No Rx needed. Ivy Kyle Exam Const General: cooperative, healthy appearing and uncomfortable Orientation: alert, awake and oriented x3 HENMT Head: normal to inspection Face and sinus: normal facial exam Eyes General: appearance normal, both eyes and all related structures EOM: EOM intact bilaterally Neck Neck: normal visual inspection and No submandibular swelling Lymphatic: no lymphadenopathy noted Chest Chest: normal inspection of the chest and no tenderness Resp Effort & Inspection: normal respiratory effort and able to speak in complete sentences Auscultation: clear to auscultation bilaterally Cardio Rate: regular rate Rhythm: regular rhythm GI Inspection: normal to inspection Palpation: soft, not firm, not rigid and tender in the RUQ Auscultation: hypoactive bowel sounds Skin General skin exam: no rashes or lesions noted Neuro General: patient alert, patient awake and patient oriented x3 Cognition: normal cognition Speech: speech normal Motor: muscle tone normal throughout Sensory Exam: no sensory deficits noted Extrem General: normal to inspection, full ROM, capillary refill normal, no calf tenderness bilaterally and no edema Psych Appearance: grossly normal Mental Status: mental status grossly normal Speech and Movement: speech and movement normal Affect: normal affect
[2021-07-01 13:13] VITALS: BP 107/79; PULSE 76; RESP 22; TEMP 36.7; O2SAT 99
[2021-07-01 13:31] LABS: Abs Immature Grans 0.03 10^3/uL (0.0-0.06); Absolute Basophil Count 0.08 10^3/uL (0.0-0.2); Absolute Eosinophil Count 0.23 10^3/uL (0.0-0.7); Absolute Lymphocyte Count 3.08 10^3/uL (1.2-3.4); Absolute Monocyte Count 0.62 10^3/uL (0.1-0.8); Absolute Neutrophil Count 5.07 10^3/uL (1.2-6.7); Basophils % 0.9; Eosinophils % 2.5; HCT 45.4 % (36.0-46.0); HGB 15.1 g/dL (11.2-15.7); Immature Grans % 0.3; Lymphocytes % 33.8; MCH 29.3 pg (27.0-33.0); MCHC 33.3 % (32.0-36.0); MCV 88.2 fL (80-95); MPV 11.8 fL (8.0-11.0); Monocytes % 6.8; Neutrophils % 55.7; Nucleated RBC 0 %; Platelet Count 263 10^3/uL (130-400); RBC 5.15 10^6/uL (3.93-5.22); RDW 12.2 % (11.7-14.6); RDW-SD 39.3 fL; WBC 9.11 10^3/uL (4.4-10.8)
[2021-07-01] MEDS: Ondansetron 4 MG/2 ML VIAL IVP (13:43)
[2021-07-01] MEDS: Normal Saline 1,000 ML 1000 ML IV (13:43)
[2021-07-01] MEDS: ACETAMINOPHEN 1,000 MG/100 ML BTL 400 MG IVPB (13:44)
[2021-07-01 13:46] LABS: ALT 80 U/L (14-59); AST 80 U/L (15-37); Albumin 3.9 g/dL (3.4-5.0); Alkaline Phosphatase 153 U/L (46-116); BUN 15 mg/dL (7-18); Bilirubin, Total 0.4 mg/dL (0.2-1.0); CREATININE 0.7 mg/dL (0.55-1.02); Calcium 9.6 mg/dL (8.5-10.1); Chloride 103 mmol/L (98-107); Glucose 111 mg/dL (74-106); Lipase 60 U/L (73-393); Potassium 3.5 mmol/L (3.5-5.1); Sodium 141 mmol/L (136-145); Total Protein 7.7 g/dL (6.4-8.2)
--- NOTE | 2021-07-01 14:00 | DI.US_ITS ---
Exam(s) US ABDOMEN LIMITED EXAM: US ABDOMEN LIMITED CLINICAL HISTORY: RUQ abd pain, vomiting, r/o cholecystitis TECHNIQUE: Ultrasound abdomen performed using standard protocol. US US ABDOMEN from 04/12/2021 FINDINGS: There is no ascites evident. LIVER: Liver appears somewhat hyperechoic indicating element of steatosis. No discrete focal hepatic lesions identified. GALLBLADDER/BILIARY: There appear to be multiple small shadowing gallstones and sludge. No gallbladd er wall edema nor pericholecystic fluid. Patient was not tender over this area during scanning today . The common hepatic duct isnot dilated, measuring 3-4mm at the level of macey hepatis. PANCREAS: There is no evidence of pancreatic mass nor dilatation of the pancreatic duct. RIGHT KIDNEY:No evidence of solid mass, calculus, nor hydronephrosis. No cortical cysts evident. ABDOMINAL AORTA AND IVC: Visualized portions exhibit normal caliber. IMPRESSION: 1. Cholelithiasis. There are multiple small gallstones. Common hepatic duct is not dilated. Gallb ladder wall is not edematous. Patient was apparently not tender over the gallbladder during scanning today. 2. Hepatic steatosis. Correlation with appropriate hepatic blood work recommended. 3. There is no ascites. DATA REPOSITORY:
[2021-07-01 15:35] VITALS: BP 114/85; PULSE 75; RESP 17; TEMP 36.4; O2SAT 98
--- NOTE | 2021-07-01 16:18 | DI.VRAD_ITS ---
PROCEDURE INFORMATION: Exam: US Abdomen, Limited; Right Upper Quadrant Exam date and time: 07/01/2021 2:07 PM Age: 30 years old Clinical indication: Other: Ruq pain since this am TECHNIQUE: Imaging protocol: US abdomen. Real time ultrasound with image documentation. Limited exam focused on the right upper quadrant. COMPARISON: US ABDOMEN 04/12/2021 8:51 AM FINDINGS: Liver: Echogenic liver suggestive of fatty change. Gallbladder: Stones and sludge at the gallbladder. No gallbladder wall thickening or pericholecystic fluid to suggest cholecystitis. Common bile duct: Normal. No stones. No dilation. Common bile duct 4 mm. Pancreas: Visualized pancreas is unremarkable. Right kidney: Normal. No mass. No hydronephrosis. Kidney length 12.2 cm. Portal venous: Portal vein patent with hepatopedal flow. IMPRESSION: 1. Cholelithiasis. 2. Fatty liver. Dictated and Authenticated by: Edenilson Wilde MD. Ordering:MAGDA Daley MD
--- NOTE | 2021-07-01 17:09 | NUR.NOTE ---
referral to cm to make appointment with general surgery for outpatient gallbladder removal. Needs to be seen within a week.
== END 2021-07-01 16:10 | disposition left against medical advice (07) ==
PROVIDERS: Emergency Provider Physician Assistant; PCP Naturopath
DX: K80.20 Calculus of gallbladder without cholecystitis without obstruction (principal); R74.01 Elevation of levels of liver transaminase levels; Z53.29 Procedure and treatment not carried out because of patient's decision for other reasons
CPT/HCPCS: 36415; 80053; 81025; 83690; 99284; 76705; 81003; 85025; J0131; J2405

== ENCOUNTER 2022-05-16 07:20 | Observation (INO) | payer OTHER, SELFPAY ==
--- NOTE | 2022-05-16 | DI.MRI_ITS ---
Exam(s) MR ABDOMEN WO EXAM: MR ABDOMEN WO CLINICAL HISTORY: r/o choledocolithiasis. TECHNIQUE: Multiplanar multisequence MRI was performed. FINDINGS: MR examination of the abdomen was performed according to the usual protocol including MRCP protocol. 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 No other focal hepatic lesion seen. Sple en is unremarkable. Pancreas appears. Adrenals and kidneys appear normal. No retroperitoneal adeno vero. Gallbladder contains multiple stones as noted on ultrasound examination. The biliary ducts are of no rmal diameter throughout. No convincing biliary duct stone is seen. IMPRESSION: Negative abdominal MRI including MRCP imaging . DATA REPOSITORY:
[2022-05-16 07:24] VITALS: BP 106/69; PULSE 101; RESP 18; TEMP 36.8; O2SAT 99
[2022-05-16 07:43] LABS: Bilirubin Large (Negative); Blood Trace-intact (Negative); Clarity Clear (Clear); Glucose Negative (Negative); Ketones 40 mg/dL (Negative); Leukocyte Esterase Negative (Negative); Nitrite Negative (Negative); Specific Gravity >= 1.030 (1.005-1.025); Urobilinogen 0.2 EU/dL (Up TO 0.2)
[2022-05-16 07:52] LABS: Epithelial Cells Rare HPF (Negative); Other Cells Negative (Negative); RBC 0-2 HPF (0-2); WBC 0-2 HPF (0-5)
[2022-05-16 07:53] LABS: Bacteria Few HPF (Negative); C & S Indicated? No; Casts Negative LPF (Negative); Crystals Negative HPF (Negative); Mucus Negative (Negative)
--- NOTE | 2022-05-16 08:00 | ED.GENADUL_ITS ---
Discharge Plan Disposition Patient Disposition: [facility] INPATIENT Condition: Stable Discharge Details Clinical Impression: Cholelithiasis, Transaminitis, Elevated bilirubin Primary Care Provider: Nito Castellanos ED Provider: Desmond Armijo Home Meds and New Rx's Prescriptions: No Action docusate sodium [Colace] 100 mg capsule 100 mg PO BID Qty: 120 2RF lypo optimize capsule PO chelidonium tablet PO Rx Instructions: pt uses these when she feels an attack coming on nystatin 100,000 unit/gram ointment 1 applic topical BID Qty: 60 1RF ciprofloxacin-dexamethasone [Ciprodex] 0.3-0.1 % drops,suspension 4 drp otic (ear) BID 7 Days Qty: 7.5 1RF Rx Instructions: Left ear loteprednol etabonate [Lotemax] 0.5 % drops,gel 1 drp ophthalmic (eye) QID vit B cmplx #9-FA-vit C-vit E 1-60-5 mg-mg-unit Tablet 1 tab PO DAILY Medical Decision Making This is a 31-year-old female presents to the ER reporting a history of cholelithiasis for the past 14 months, has had multiple gallbladder attacks, typically pass on their own but this 1 has been consistent since Friday. Patient states that she sees a naturopathic doctor and has been taking [id number] supplementation to help break down the stones. She is very hesitant to seek surgical intervention. She denies fever, chest pain, shortness of breath, diarrhea, constipation. Patient reports increased abdominal pain, nausea, vomiting and has noticed dark urine, concern for dehydration although tolerating p.o. intake. She denies dysuria or hematuria. Clinically her examination is certainly consistent with biliary colic, plan to obtain IV access, provide IV fluid, Zofran, obtain routine screening laboratory values and obtain ultrasound of her right upper quadrant. Patient is afebrile, no evidence of leukocytosis. Will await initiation of potential antibiotic therapy. Total bilirubin 8.1, conjugated bilirubin 5.9 AST 690 ALT 1629 alk phosphatase 196, lipase normal at 81. Urinalysis with 40 ketones, large urine bilirubin. No signs of infection in her urine Ultrasound reveals cholelithiasis and has a positive sonographic Madrigal sign In the setting of increased pain, nausea, vomiting, known cholelithiasis with positive Madrigal sign and her laboratory values today, patient requires admission and further work-up. Case discussed with Dr. Krishnan, surgery, who is agreeable for admission. This documentation was generated using [employer] dictation system, please disregard any oddities of phrase or misspellings. Patient requesting that her work-up today be faxed to her PCP so she can help decide whether or not she would like to pursue additional care. 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 Imaging Data Radiologic Study: Attestation: I personally reviewed and interpreted this imaging study as follows: Imaging: Ultrasound Radiologist's impression: Exam(s) US ABDOMEN LIMITED EXAM: US ABDOMEN LIMITED CLINICAL HISTORY: RUQ pain TECHNIQUE: Ultrasound performed using standard protocol. COMPARISON: No exams were available for comparison FINDINGS: The visualized liver parenchyma appears of increased echogenicity consistent with hepatic steatosis. No focal hepatic lesion identified. Pancreas is unremarkable in appearance as visualized. Portal venous flow is hepatopetal. There is cholelithiasis with multiple mobile stones. No pericholecystic fluid collection or gallbladder wall thickening. Patient did exhibit a positive sonographic Madrigal sign. Common hepatic duct is of normal diameter. Unremarkable appearance of the right kidney, no hydronephrosis or nephrolithiasis. IMPRESSION: Cholelithiasis is noted. There is a positive sonographic Madrigal sign. Note is also made of probable hepatic steatosis. Lab Data Lab results reviewed: Yes I reviewed the patient's lab results. Labs: Laboratory Tests Range/Units 05/16/22 05/16/22 05/16/22 07:34 07:42 07:42 WBC (4.4-10.8) 10^3/uL 8.54 RBC (3.93-5.22) 10^6/uL 5.21 Hgb (11.2-15.7) g/dL 15.5 Hct (36.0-46.0) % 46.2 H MCV (80-95) fL 89 MCH (27.0-33.0) pg 29.8 MCHC (32.0-36.0) % 33.5 RDW (11.7-14.6) % 12.6 Plt Count (130-400) 10^3/uL 246 MPV (8.0-11.0) fL 11.8 H Immature Gran % 0.5 Neutrophils % 74.1 Lymphocytes % 15.8 Monocytes % 5.9 Eosinophils % 3.0 Basophils % 0.7 Nucleated RBC % (0.0-0.3) % 0.0 Absolute Neutrophils (1.2-6.7) 10^3/uL 6.33 Absolute Lymphocytes (1.2-3.4) 10^3/uL 1.35 Absolute Monocytes (0.1-0.8) 10^3/uL 0.50 Absolute Eosinophils (0.0-0.7) 10^3/uL 0.26 Absolute Basophils (0.0-0.2) 10^3/uL 0.06 Sodium (136-145) mmol/L 141 Potassium (3.5-5.1) mmol/L 3.9 Chloride (98-107) mmol/L 104 Carbon Dioxide (21.0-32.0) mmol/L 24.9 Anion Gap (3-11) mmol/L 12.1 H BUN (7-18) mg/dL 11 Creatinine (0.55-1.02) mg/dL 0.5 L Est GFR (CKD-EPI 2020) (mL/min/1.73m2) 127.72 Glucose (74-106) mg/dL 90 Calcium (8.5-10.1) mg/dL 9.5 Total Bilirubin (0.2-1.0) mg/dL 8.1 H Conjugated Bilirubin (0.0-0.2) mg/dL AST (15-37) U/L 690 H ALT (14-59) U/L 1629 H Alkaline Phosphatase (46-116) U/L 196 H Total Protein (6.4-8.2) g/dL 8.3 H Albumin (3.4-5.0) g/dL 4.1 Lipase (73-393) U/L 81 Urine Color (Yellow) [place] Urine Clarity (Clear) Clear Urine pH (5-8) 6.0 Ur Specific [place] (1.005-1.025) >= 1.030 H Urine Protein (Negative) mg/dL Negative Urine Ketones (Negative) mg/dL 40 H Urine Blood (Negative) Trace-intact H Urine Nitrite (Negative) Negative Urine Bilirubin (Negative) Large H Urine Urobilinogen (Up TO 0.2) EU/dL 0.2 Ur Leukocyte Esterase (Negative) Negative Urine RBC (0-2) HPF 0-2 Urine WBC (0-5) HPF 0-2 Ur Epithelial Cells (Negative) HPF Rare Urine Crystals (Negative) HPF Negative Urine Bacteria (Negative) HPF Few Urine Casts (Negative) LPF Negative Urine Mucus (Negative) Negative Urine Other (Negative) Negative Ur Culture Indicated? No Urine Glucose (Negative) mg/dL Negative COVID-19 Source Range/Units 05/16/22 05/16/22 07:42 09:27 WBC (4.4-10.8) 10^3/uL RBC (3.93-5.22) 10^6/uL Hgb (11.2-15.7) g/dL Hct (36.0-46.0) % MCV (80-95) fL MCH (27.0-33.0) pg MCHC (32.0-36.0) % RDW (11.7-14.6) % Plt Count (130-400) 10^3/uL MPV (8.0-11.0) fL Immature Gran % Neutrophils % Lymphocytes % Monocytes % Eosinophils % Basophils % Nucleated RBC % (0.0-0.3) % Absolute Neutrophils (1.2-6.7) 10^3/uL Absolute Lymphocytes (1.2-3.4) 10^3/uL Absolute Monocytes (0.1-0.8) 10^3/uL Absolute Eosinophils (0.0-0.7) 10^3/uL Absolute Basophils (0.0-0.2) 10^3/uL Sodium (136-145) mmol/L Potassium (3.5-5.1) mmol/L Chloride (98-107) mmol/L Carbon Dioxide (21.0-32.0) mmol/L Anion Gap (3-11) mmol/L BUN (7-18) mg/dL Creatinine (0.55-1.02) mg/dL Est GFR (CKD-EPI 2020) (mL/min/1.73m2) Glucose (74-106) mg/dL Calcium (8.5-10.1) mg/dL Total Bilirubin (0.2-1.0) mg/dL Conjugated Bilirubin (0.0-0.2) mg/dL 5.9 H AST (15-37) U/L ALT (14-59) U/L Alkaline Phosphatase (46-116) U/L Total Protein (6.4-8.2) g/dL Albumin (3.4-5.0) g/dL Lipase (73-393) U/L Urine Color (Yellow) Urine Clarity (Clear) Urine pH (5-8) Ur Specific [place]ay (1.005-1.025) Urine Protein (Negative) mg/dL Urine Ketones (Negative) mg/dL Urine Blood (Negative) Urine Nitrite (Negative) Urine Bilirubin (Negative) Urine Urobilinogen (Up TO 0.2) EU/dL Ur Leukocyte Esterase (Negative) Urine RBC (0-2) HPF Urine WBC (0-5) HPF Ur Epithelial Cells (Negative) HPF Urine Crystals (Negative) HPF Urine Bacteria (Negative) HPF Urine Casts (Negative) LPF Urine Mucus (Negative) Urine Other (Negative) Ur Culture Indicated? Urine Glucose (Negative) mg/dL COVID-19 Source Nasal/Nares HPI General Mode of arrival: ambulatory . Date/Time Provider Initiated Documentation: 05/16/22 07:57 . Limitations to Documentation: no limitations . Information obtained by: patient . History of Present Illness 31 year old F presents to the emergency department with the chief complaint of Abd Pain, described as moderate, with intensity rated at 6. Quality is described as aching and sharp, and is localized to the abdomen. Patient reports no radiation. Patient started experiencing this day(s) (3 now, in general 14 months) and it has been constant. No relieving factors improve symptom(s), No exacerbating factors reported . Patient notes nausea/vomiting. Patient did receive the following treatments prior to arrival, none Related Data Home Medications Medication Instructions Recorded Confirmed docusate sodium 100 mg capsule 100 mg PO BID #120 caps 12/11/20 05/16/22 (Colace) chelidonium PO 05/07/21 10/25/21 lypo optimize PO 05/07/21 10/25/21 loteprednol etabonate 0.5 % eye 1 drp ophthalmic (eye) QID 10/16/21 05/16/22 gel drops (Lotemax) nystatin 100,000 unit/gram topical 1 applic topical BID #60 grams 10/16/21 05/16/22 ointment ciprofloxacin 0.3 %-dexamethasone 4 drp otic (ear) BID 7 days #7.5 mL 10/18/21 05/16/22 0.1 % ear drops,suspension (Ciprodex) vitamin B complex #9-folic 1 tab PO DAILY 05/16/22 05/16/22 acid-vit C-vit E 1 mg-60 mg-5 unit tablet Previous Rx's Medication Instructions Recorded docusate sodium 100 mg capsule 100 mg PO BID #120 caps 12/11/20 (Colace) nystatin 100,000 unit/gram topical 1 applic topical BID #60 grams 10/16/21 ointment ciprofloxacin 0.3 %-dexamethasone 4 drp otic (ear) BID 7 days #7.5 mL 10/18/21 0.1 % ear drops,suspension (Ciprodex) Allergies Allergy/AdvReac Type Severity Reaction Status Date / Time erythromycin base Allergy Intermediate Skin Rash Verified 05/16/22 07:27 latex Allergy Intermediate Skin Rash Verified 05/16/22 07:27 penicillin G Allergy Intermediate Skin Rash Verified 05/16/22 07:27 gluten Allergy Verified 05/16/22 07:27 lactose Allergy Verified 05/16/22 07:27 General Stated Complaint: Abd Prob ROSALES: 3 Review of Systems Constitutional Constitutional: Denies fatigue and Denies fever(s) ENT Ears, Nose, Mouth, and Throat: Denies neck pain Cardiovascular Cardiovascular: Denies chest pain and Denies dyspnea Respiratory Respiratory: Denies dyspnea Gastrointestinal Gastrointestinal: Reports abdominal pain, Reports nausea and Reports vomiting Musculoskeletal Musculoskeletal: Denies back pain and Denies neck pain Integumentary/Breasts Skin/Breast: Denies rash Endocrine Endocrine: Denies fatigue Hematologic/Lymphatic Hematologic/Lymphatic: Denies easy bleeding and Denies easy bruising PFSH All Active Problems (Updated 05/16/22 @ 09:55 by ROSALINDA Gusman) Elevated bilirubin (Acute) Contact dermatitis (Acute) Left otitis externa (Acute) Yeast dermatitis (Acute) Cholelithiasis (Acute) Transaminitis (Acute) Cholelithiasis (Acute) RUQ pain (Acute) Sleep disturbance (Acute) Elevated glucose tolerance test (Acute) TMJ syndrome (Chronic) Oropharyngeal dysphagia (Chronic) ADHD (attention deficit hyperactivity disorder) (Chronic) Reports she is doing well without medication in her college courses. Medical History Encounter for repeat Papanicolaou smear of cervix due to previous unsatisfactory results Unsat pap 08/04/20 - discussed with patient. Will repeat PP. 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 Kahlil Palomo. Vitamin D deficiency Surgical History S/P eye surgery (01/14/19) Surgery for nasolacrimal duct obstruction S/P tonsillectomy and adenoidectomy Family History Mother Kidney disease S/p kidney transplant Type 1 diabetes mellitus Hypertension Father Gout Colon polyps Alcohol abuse Maternal Grandfather No problems noted. 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 Date GA/Weeks # Preg Succ Route Wgt Sex Labor Lgth Anesth esia Location [facility] 03/02/21 40 No vaginal 3143.962 g Female Renetta Kyle Delivery Date: 03/02/21 Last Updated by: Ivy Kyle M.D. IOL for GDM. Insulin requiring. Stacia. Transient PP BP elevation. No Rx needed. Exam Const General: cooperative, healthy appearing, comfortable and no acute distress Orientation: alert and awake [facility] Head: normal to inspection, normocephalic and atraumatic Face and sinus: normal facial exam Mouth: moist mucous membranes Eyes General: appearance normal, both eyes and all related structures Conjunctivae: conjunctivae normal Neck Neck: normal visual inspection, full ROM, no meningeal signs, trachea midline and supple Resp Effort & Inspection: normal respiratory effort and able to speak in complete sentences Auscultation: clear to auscultation bilaterally Cardio Rate: regular rate Rhythm: regular rhythm GI Inspection: normal to inspection Palpation: soft, not firm, no guarding, no pulsatile masses and tender in the RUQ and Madrigal's sign positive Auscultation: normal bowel sounds Back/Spine/Pelvis Back: no CVA tenderness and No back tenderness Skin General skin exam: no rashes or lesions noted Neuro General: patient alert, patient awake, patient oriented x3, moves all extremities and no focal motor deficits Cognition: normal cognition Speech: speech normal Gait: normal gait Sensory Exam: no sensory deficits noted Psych Appearance: grossly normal Mental Status: mental status grossly normal Course Vital Signs Vital signs: Vital Signs Temperature 36.8 C 05/16/22 07:24 Pulse 101 H 05/16/22 07:24 Respiratory Rate 18 05/16/22 07:24 Blood Pressure 106/69 05/16/22 07:24 Pulse Oximetry 99 05/16/22 07:24 Temperature 36.8 C 05/16/22 07:24 Temperature Source Temporal Artery Scan 05/16/22 07:24 Pulse 101 H 05/16/22 07:24 Respiratory Rate 18 05/16/22 07:24 Respiratory Effort Non-Labored 05/16/22 07:45 Blood Pressure 106/69 05/16/22 07:24 Blood Pressure Position Sitting 05/16/22 07:24 Pulse Oximetry 99 05/16/22 07:24 Oxygen Delivery Method Room Air 05/16/22 07:24 Oxygen Flow Rate 0 05/16/22 07:24 Lab/Test Results Lab/Test Results: Laboratory Tests Range/Units 05/16/22 07:34 Urine Color (Yellow) [place] Urine Clarity (Clear) Clear Urine pH (5-8) 6.0 Ur Specific [place] (1.005-1.025) >= 1.030 H Urine Protein (Negative) mg/dL Negative Urine Ketones (Negative) mg/dL 40 H Urine Blood (Negative) Trace-intact H Urine Nitrite (Negative) Negative Urine Bilirubin (Negative) Large H Urine Urobilinogen (Up TO 0.2) EU/dL 0.2 Ur Leukocyte Esterase (Negative) Negative Urine RBC (0-2) HPF 0-2 Urine WBC (0-5) HPF 0-2 Ur Epithelial Cells (Negative) HPF Rare Urine Crystals (Negative) HPF Negative Urine Bacteria (Negative) HPF Few Urine Casts (Negative) LPF Negative Urine Mucus (Negative) Negative Urine Other (Negative) Negative Ur Culture Indicated? No Urine Glucose (Negative) mg/dL Negative POC Urine Test Start: 05/16/22 07:32 Freq: Status: Complete Protocol: Document 05/16/22 07:41 YVONNE (Rec: 05/16/22 07:41 YVONNE [id number]) Test(Urine)-POC POC- Test(urine) Negative POC- Test(urine) Negative
[2022-05-16] MEDS: Normal Saline 1,000 ML 1000 ML IV (08:07)
[2022-05-16 08:10] LABS: Abs Immature Grans 0.04 10^3/uL (0.0-0.06); Absolute Basophil Count 0.06 10^3/uL (0.0-0.2); Absolute Eosinophil Count 0.26 10^3/uL (0.0-0.7); Absolute Lymphocyte Count 1.35 10^3/uL (1.2-3.4); Absolute Neutrophil Count 6.33 10^3/uL (1.2-6.7); Basophils % 0.7; HCT 46.2 % (36.0-46.0); HGB 15.5 g/dL (11.2-15.7); Immature Grans % 0.5; Lymphocytes % 15.8; MCH 29.8 pg (27.0-33.0); MCHC 33.5 % (32.0-36.0); MCV 89 fL (80-95); MPV 11.8 fL (8.0-11.0); Monocytes % 5.9; Neutrophils % 74.1; Platelet Count 246 10^3/uL (130-400); RBC 5.21 10^6/uL (3.93-5.22); RDW 12.6 % (11.7-14.6); RDW-SD 41.3 fL; WBC 8.54 10^3/uL (4.4-10.8)
[2022-05-16] MEDS: Ondansetron 4 MG/2 ML VIAL IVP (08:25)
[2022-05-16 08:40] LABS: AST 690 U/L (15-37); Albumin 4.1 g/dL (3.4-5.0); Alkaline Phosphatase 196 U/L (46-116); Anion Gap 12.1 mmol/L (3-11); BUN 11 mg/dL (7-18); Bilirubin, Total 8.1 mg/dL (0.2-1.0); CO2 24.9 mmol/L (21.0-32.0); CREATININE 0.5 mg/dL (0.55-1.02); Calcium 9.5 mg/dL (8.5-10.1); Chloride 104 mmol/L (98-107); Estimated GFR 127.72 (mL/min/1.73m2); Glucose 90 mg/dL (74-106); Potassium 3.9 mmol/L (3.5-5.1); Sodium 141 mmol/L (136-145); Total Protein 8.3 g/dL (6.4-8.2)
[2022-05-16 08:53] LABS: Lipase 81 U/L (73-393)
[2022-05-16 09:06] LABS: ALT 1629 U/L (14-59)
[2022-05-16 09:25] LABS: Bilirubin, Direct 5.9 mg/dL (0.0-0.2)
[2022-05-16 09:28] VITALS: BP 117/96; PULSE 75; TEMP 37; O2SAT 98
[2022-05-16 09:35] LABS: Source Nasal/Nares
[2022-05-16 10:07] LABS: COVID-19 PCR Negative (Negative)
--- NOTE | 2022-05-16 11:05 | NUR.NOTE ---
Nursing Note: At the patient request the ED visit information was faxed to Ebonie Tolbert.
[2022-05-16 11:25] VITALS: BP 122/74; PULSE 63; PULSE 74; RESP 16; RESP 20; TEMP 36.9; O2SAT 99
--- NOTE | 2022-05-16 12:13 | NUR.NOTE ---
Nursing Note: At approximately 1212 on 05/16/22, this RN and the AD TRAFFICKER were in the pt.'s room to speak with the pt. regarding some orders that had been placed by the provider and to inform the pt. that the provider had been paged and notified of pt.'s request to speak with them. RN and AD TRAFFICKER had just begun their conversation with the pt. when the pt. received a phone call from her primary care provider (PCP). RN and AD TRAFFICKER began to leave the room to allow the pt. to take the phone call, but as they were leaving the room, heard the pt. tell her PCP that she was in the hospital and was feeling ...very pressured to have my gallbladder taken out. RN and AD TRAFFICKER also heard the PCP state that they would be calling to speak with the admitting provider. RN and AD TRAFFICKER will check on the pt. again later on to discuss the orders and reassure the pt. that the decision to have surgery or not is completely up to the pt.
[2022-05-16] MEDS: Lactated Ringers 1,000 ML 75 ML IV (12:41)
--- NOTE | 2022-05-16 12:49 | NUR.NOTE ---
Nursing Note: At approximately 1235 on 05/16/22, this RN and the TRUCK REPAIR SERVICE ESTIMATOR entered the pt.'s room again to continue the conversation regarding the orders placed by the provider. Before reviewing the orders, both the RN and the TRUCK REPAIR SERVICE ESTIMATOR reassured the pt. that the decision about whether or not to have her gallbladder removed is completely up to her, and that the pt. shouldn't feel pressured, and that if she does she should speak up. RN then proceeded to provide education/teaching regarding the orders placed by the provider (coughing and deep breathing, IS, SCD's, NPO, and LR at 75 mL/hr). Pt. states she will work on performing coughing and deep breathing exercises, will follow the NPO order, and will accept administration of the LR at 75 mL/hr at this time. Pt. refusing IS and SCD's at this time.
--- NOTE | 2022-05-16 12:53 | NUR.NOTE ---
Patient Refused SCD's and Incentive spirometry at this time. RN and POSTBED STITCHER went in the patients room and discussed what SCD's and Incentive spirometry is used for. The patient stated she does not want these at this time but maybe she would change her mind later. Patient stated she did not have any questions at this time. Patient is very anxious about the decision she has to make in regards to surgery. Patient asked to speak with the doctor on this matter which was then passed along to the charge nurse. RN also made it very clear that this decision was her decision and no one is Pressuring her one way or the other.
--- NOTE | 2022-05-16 13:23 | ANES.PREOP_ITS ---
General Info Height: 5 ft 2.5 in Weight: 70.307 kg Body Mass Index (BMI): 27.8 Meds Allergies and Home Medications Allergies Allergy/AdvReac Type Severity Reaction Status Date / Time erythromycin base Allergy Intermediate Skin Rash Verified 05/16/22 07:27 latex Allergy Intermediate Skin Rash Verified 05/16/22 07:27 penicillin G Allergy Intermediate Skin Rash Verified 05/16/22 07:27 gluten Allergy Verified 05/16/22 07:27 lactose Allergy Verified 05/16/22 07:27 Home Medication Medication Instructions Recorded docusate sodium 100 mg capsule 100 mg PO BID #120 caps 12/11/20 (Colace) chelidonium PO 05/07/21 lypo optimize PO 05/07/21 loteprednol etabonate 0.5 % eye 1 drp ophthalmic (eye) QID 10/16/21 gel drops (Lotemax) nystatin 100,000 unit/gram topical 1 applic topical BID #60 grams 10/16/21 ointment ciprofloxacin 0.3 %-dexamethasone 4 drp otic (ear) BID 7 days #7.5 mL 10/18/21 0.1 % ear drops,suspension (Ciprodex) vitamin B complex #9-folic 1 tab PO DAILY 05/16/22 acid-vit C-vit E 1 mg-60 mg-5 unit tablet Current Visit Medications: Current Medications Generic Name Dose Route Start Last Admin Trade Name Freq PRN Reason Stop Dose Admin Acetaminophen 1,000 mg 05/16/22 14:00 Acetaminophen 500 Mg Tab PO Q8H RAKESH Enoxaparin Sodium 40 mg 05/16/22 14:00 Enoxaparin 40 Mg/0.4 Ml Syr SC Q24H [facility] Sodium Chloride 500 mls @ 0 mls/hr 05/16/22 09:42 Saline 500ml Bag IV PRN PRN As Directed Ringer's Solution 1,000 mls @ 75 mls/hr 05/16/22 09:45 05/16/22 12:41 IV 75 mls/hr INFUSION RAKESH Administration IV Miscellaneous Supplies 1 each 05/16/22 08:00 Iv Access IV DIRECTED RAKESH IV Miscellaneous Supplies 1 each 05/16/22 09:45 Iv Access IV DIRECTED [facility] Morphine Sulfate 2 mg 05/16/22 09:42 Morphine 2 Mg/Ml Syr IVP Q1H PRN PRN Ondansetron HCl 4 mg 05/16/22 09:42 Ondansetron 4 Mg/2 Ml Vial IVP Q4H PRN PRN Sodium Chloride 0 ml 05/16/22 09:42 Normal Saline Flush 10 Ml Syr IVP PRN PRN PFSH Active Problems Active Problems: Problem Status Onset Code Elevated bilirubin R17 Contact dermatitis L25.9 Left otitis externa H60.92 Yeast dermatitis B37.2 Cholelithiasis K80.20 Transaminitis R74.01 Cholelithiasis K80.20 RUQ pain R10.11 Sleep disturbance G47.9 Elevated glucose tolerance test R73.09 TMJ syndrome M26.629 Oropharyngeal dysphagia R13.12 ADHD (attention deficit hyperactivity disorder) Medical History Medical History Encounter for repeat Papanicolaou smear of cervix due to previous unsatisfactory results Unsat pap 08/04/20 - discussed with patient. Will repeat PP. 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 Kahlil Palomo. Vitamin D deficiency Surgical History Surgical History S/P eye surgery (01/14/19) Surgery for nasolacrimal duct obstruction S/P tonsillectomy and adenoidectomy Tobacco Smoking/Tobacco Use Status: Never Alcohol Alcohol Intake: former Substance Use Substance use: Never Substance use type: does not use Prental History History 1 Para 0 Hx # Term Pregnancies 1 Multiple births 0 Hx # Pregnancies 0 Ectopic pregnancies 0 AB induced 0 Hx Number of Living Children 1 AB spontaneous 0 Past Pregnancies Del. Date GA/Weeks # Preg Succ Route Wgt Sex Labor Lgth Anesth esia Location [facility] 03/02/21 40 No vaginal 3143.962 g Female Renetta Kyle Delivery Date: 03/02/21 Last Updated by: Ivy Kyle M.D. IOL for GDM. Insulin requiring. Stacia. Transient PP BP elevation. No Rx needed. Vital Signs and Lab Results Vital Signs Most Recent Vital Signs in EMR: Most Recent Vital Signs Temp Pulse Resp BP Pulse Ox 36.9 C 74 16 122/74 99 05/16/22 11:25 05/16/22 11:25 05/16/22 11:25 05/16/22 11:25 05/16/22 11:25 Point of Care Results Point of Care Results: POC- Test(urine) Negative 05/16/22 07:41 Lab Results Result Diagrams: 05/16/22 07:42 05/16/22 07:42 Blood Type / Crossmatch: No Data to Display Complete Blood Count: White Blood Count 8.54 10^3/uL (4.4-10.8) 05/16/22 07:42 Red Blood Count 5.21 10^6/uL (3.93-5.22) 05/16/22 07:42 Hemoglobin 15.5 g/dL (11.2-15.7) 05/16/22 07:42 Hematocrit 46.2 % (36.0-46.0) H 05/16/22 07:42 Platelet Count 246 10^3/uL (130-400) 05/16/22 07:42 Complete Metabolic Panel: Sodium 141 mmol/L (136-145) 05/16/22 07:42 Potassium 3.9 mmol/L (3.5-5.1) 05/16/22 07:42 Chloride 104 mmol/L (98-107) 05/16/22 07:42 Carbon Dioxide 24.9 mmol/L (21.0-32.0) 05/16/22 07:42 BUN 11 mg/dL (7-18) 05/16/22 07:42 Creatinine 0.5 mg/dL (0.55-1.02) L 05/16/22 07:42 Est GFR (CKD-EPI 2020) 127.72 (mL/min/1.73m2) 05/16/22 07:42 Calcium 9.5 mg/dL (8.5-10.1) 05/16/22 07:42 Albumin 4.1 g/dL (3.4-5.0) 05/16/22 07:42 Glucose 90 mg/dL (74-106) 05/16/22 07:42 Liver Function Panel: Alanine Aminotransferase (ALT/SGPT) 1629 U/L (14-59) H 05/16/22 07:42 Aspartate Amino Transf (AST/SGOT) 690 U/L (15-37) H 05/16/22 07 :42 Coagulation Panel: No Data to Display Cardiac Panel: No Data to Display Arterial Blood Gas: No Data to Display Venous Blood Gas: No Data to Display Pancreas Panel: Lipase 81 U/L (73-393) 05/16/22 07:42 Thyroid Panel: No Data to Display Infectious Disease: Coronavirus (COVID-19)(PCR) Negative (Negative) 05/16/22 09:27 Coronavirus 2019 Source Nasal/Nares 05/16/22 09:27 Blood Cultures: No Data to Display Toxicology Panel: 2 No Data to Display Panel: No Data to Display Anesthesia Assessment and Plan Anesthesia History Personal History: No History of General Anesthesia Family History: No Family History of Anesthesia Complications Exercise Tolerance Exercise Tolerance: Metabolic Equivalents>4 Pertinent Negatives Pertinent Negatives: No Symptoms of GERD, No Major Cardiovascular Symptoms or Complaints, No Major Pulmonary Symptoms or Complaints and No History of CVA/TIA Cardiac & Pulmonary Exam Cardiac Exam: Normal S1/S2 Heart Sounds Pulmonary Exam: Clear Bilateral Breath Sounds Airway Exam Known Difficult Airway: No Mallampati Class: 1 Mouth Opening: Normal (> 3cm) Thyromental Distance: Greater than 3 cm Neck Range of Motion: Full ROM Neck Circumference: Normal Teeth Condition: Normal Dentition ASA Classification ASA Score: ASA 2 Emergency Case?: No NPO Status NPO Status: NPO Clears >2 hours, Solids >8 hours Anesthesia Plan Anesthesia Technique: General Anesthesia Airway Planned: Endotracheal Tube Monitors Used: Standard Monitors
[2022-05-16 15:14] VITALS: BP 112/67; PULSE 64; RESP 14; TEMP 37.2; O2SAT 100
--- NOTE | 2022-05-16 15:49 | HPE_ITS ---
Date of service: 05/16/22 Assessment and Plan Assessment and plan (1) Elevated bilirubin: Status: Acute Assessment and plan: The MRCP is reassuring to rule out choledocholithiasis. I suspect that her pain and elevated liver function tests were result of a mobile gallstone that has since passed. I did recommend cholecystectomy. At this time, she prefers to forego an operation. We talked about alternatives like lithotripsy and ERCP. I advised against both of those options. For now, we will repeat her LFTs tomorrow and give her some more time to think about my recommendations. I also discussed her treatment with her primary care doctor (Dr. Mcrae at [phone]) History of Present Illness History of Present Illness Chief Complaint: Abdominal pain Narrative: Abhishek is a 31-year-old woman who has been dealing with right upper quadrant pain caused by cholelithiasis for several months. She has undergone ultrasound confirming this diagnosis as an outpatient. She has been trying to treat it with pancreatic enzymes, lipase, and sunflower oil. Yesterday, into today, she developed worsening right-sided and midepigastric pain. She came to the hospital where an ultrasound demonstrated multiple mobile gallstones, as well as some hepatic steatosis. She had elevated liver function test, as well as a total bilirubin of 8. She underwent an MRCP that demonstrated no evidence of choledocholithiasis. Review of Systems Constitutional Constitutional: Reports fatigue, Denies fever(s), Reports lethargy, Denies night sweats and Reports weakness Eyes Eyes: Reports system reviewed and no additional complaints, except as documented ENT Ears, Nose, Mouth, and Throat: Reports system reviewed and no additional complaints, except as documented Cardiovascular Cardiovascular: Denies chest pain and Denies dyspnea Respiratory Respiratory: Denies chest congestion, Denies cough and Denies dyspnea Gastrointestinal Gastrointestinal: Reports abdominal pain, Denies belching, Denies bloating, Denies change in bowel habits, Denies change in stool character and Reports nausea Musculoskeletal Musculoskeletal: Reports muscle cramps, Reports muscle weakness, Reports numbness and Reports tingling Neurologic Neurologic: Reports lack of coordination, Reports numbness, Reports tingling, Reports paresthesias and Reports weakness Psychiatric Psychiatric: Reports system reviewed and no additional complaints, except as documented Endocrine Endocrine: Reports fatigue Hematologic/Lymphatic Hematologic/Lymphatic: Denies easy bleeding and Denies easy bruising PFSH All Active Problems Elevated bilirubin (Acute) Contact dermatitis (Acute) Left otitis externa (Acute) Yeast dermatitis (Acute) Cholelithiasis (Acute) Transaminitis (Acute) Cholelithiasis (Acute) RUQ pain (Acute) Sleep disturbance (Acute) Elevated glucose tolerance test (Acute) TMJ syndrome (Chronic) Oropharyngeal dysphagia (Chronic) ADHD (attention deficit hyperactivity disorder) (Chronic) Reports she is doing well without medication in her college courses. Medical History Encounter for repeat Papanicolaou smear of cervix due to previous unsatisfactory results Unsat pap 08/04/20 - discussed with patient. Will repeat PP. 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 Kahlil Palomo. Vitamin D deficiency Surgical History S/P eye surgery (01/14/19) Surgery for nasolacrimal duct obstruction S/P tonsillectomy and adenoidectomy Family History Mother Kidney disease S/p kidney transplant Type 1 diabetes mellitus Hypertension Father Gout Colon polyps Alcohol abuse Maternal Grandfather No problems noted. 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 Date GA/Weeks # Preg Succ Route Wgt Sex Labor Lgth Anesth esia Location [facility] 03/02/21 40 No vaginal 6 lb 14.9 oz Female A nne Anabella Delivery Date: 03/02/21 Last Updated by: Ivy Kyle M.D. IOL for GDM. Insulin requiring. Stacia. Transient PP BP elevation. No Rx needed. Meds Allergies and Home Medications Allergies Allergy/AdvReac Type Severity Reaction Status Date / Time erythromycin base Allergy Intermediate Skin Rash Verified 05/16/22 07:27 latex Allergy Intermediate Skin Rash Verified 05/16/22 07:27 penicillin G Allergy Intermediate Skin Rash Verified 05/16/22 07:27 gluten Allergy Verified 05/16/22 07:27 lactose Allergy Verified 05/16/22 07:27 Home Medications Medication Instructions Recorded Confirmed Type docusate sodium 100 mg capsule 100 mg PO BID #120 caps 12/11/20 05/16/22 Rx (Colace) chelidonium PO 05/07/21 10/25/21 History lypo optimize PO 05/07/21 10/25/21 History loteprednol etabonate 0.5 % eye 1 drp ophthalmic (eye) QID 10/16/21 05/16/22 History gel drops (Lotemax) nystatin 100,000 unit/gram topical 1 applic topical BID #60 grams 10/16/21 05/16/22 Rx ointment ciprofloxacin 0.3 %-dexamethasone 4 drp otic (ear) BID 7 days #7.5 mL 10/18/21 05/16/22 Rx 0.1 % ear drops,suspension (Ciprodex) vitamin B complex #9-folic 1 tab PO DAILY 05/16/22 05/16/22 History acid-vit C-vit E 1 mg-60 mg-5 unit tablet Exam Const General: cooperative, healthy appearing and comfortable Orientation: awake and oriented x3 Eyes General: appearance normal, both eyes and all related structures Conjunctivae: conjunctivae normal Sclera: sclerae normal Resp Effort & Inspection: normal respiratory effort and able to speak in complete sentences Cardio Jugular venous pressure: no JVD Rate: regular rate GI Inspection: non-distended Palpation: soft, no guarding, no hernias and tender (Right upper quadrant) Percussion: normal to percussion Auscultation: normal bowel sounds Skin General skin exam: normal turgor Neuro General: patient alert, patient awake and patient oriented x3 Cognition: normal cognition Extrem Right lower extremity: no edema Left lower extremity: no edema Results Labs Result diagrams: 05/16/22 07:42 05/16/22 07:42 Labs: Laboratory Results - last 24 hr 05/16/22 05/16/22 05/16/22 07:34 07:42 07:42 WBC 8.54 RBC 5.21 Hgb 15.5 Hct 46.2 H MCV 89 MCH 29.8 MCHC 33.5 RDW 12.6 Plt Count 246 MPV 11.8 H Immature Gran % 0.5 Neutrophils % 74.1 Lymphocytes % 15.8 Monocytes % 5.9 Eosinophils % 3.0 Basophils % 0.7 Nucleated RBC % 0.0 Absolute Neutrophils 6.33 Absolute Lymphocytes 1.35 Absolute Monocytes 0.50 Absolute Eosinophils 0.26 Absolute Basophils 0.06 Sodium 141 Potassium 3.9 Chloride 104 Carbon Dioxide 24.9 Anion Gap 12.1 H BUN 11 Creatinine 0.5 L Est GFR (CKD-EPI 2020) 127.72 Glucose 90 Calcium 9.5 Total Bilirubin 8.1 H Conjugated Bilirubin AST 690 H ALT 1629 H Alkaline Phosphatase 196 H Total Protein 8.3 H Albumin 4.1 Lipase 81 Urine Color [place] Urine Clarity Clear Urine pH 6.0 Ur Specific [place] >= 1.030 H Urine Protein Negative Urine Ketones 40 H Urine Blood Trace-intact H Urine Nitrite Negative Urine Bilirubin Large H Urine Urobilinogen 0.2 Ur Leukocyte Esterase Negative Urine RBC 0-2 Urine WBC 0-2 Ur Epithelial Cells Rare Urine Crystals Negative Urine Bacteria Few Urine Casts Negative Urine Mucus Negative Urine Other Negative Ur Culture Indicated? No Urine Glucose Negative COVID-19 Source SARS-CoV-2 (PCR) 05/16/22 05/16/22 07:42 09:27 WBC RBC Hgb Hct MCV MCH MCHC RDW Plt Count MPV Immature Gran % Neutrophils % Lymphocytes % Monocytes % Eosinophils % Basophils % Nucleated RBC % Absolute Neutrophils Absolute Lymphocytes Absolute Monocytes Absolute Eosinophils Absolute Basophils Sodium Potassium Chloride Carbon Dioxide Anion Gap BUN Creatinine Est GFR (CKD-EPI 2020) Glucose Calcium Total Bilirubin Conjugated Bilirubin 5.9 H AST ALT Alkaline Phosphatase Total Protein Albumin Lipase Urine Color Urine Clarity Urine pH Ur Specific [place] Urine Protein Urine Ketones Urine Blood Urine Nitrite Urine Bilirubin Urine Urobilinogen Ur Leukocyte Esterase Urine RBC Urine WBC Ur Epithelial Cells Urine Crystals Urine Bacteria Urine Casts Urine Mucus Urine Other Ur Culture Indicated? Urine Glucose COVID-19 Source Nasal/Nares SARS-CoV-2 (PCR) Negative Last Vital Signs Temp 99.0 F 05/16/22 15:14 Pulse 64 05/16/22 15:14 Resp 14 05/16/22 15:14 BP 112/67 05/16/22 15:14 Pulse Ox 100 05/16/22 15:14
[2022-05-16] MEDS: Milk of Magnesia 30 ML CUP PO (16:48)
[2022-05-16] MEDS: Docusate Sodium 100 MG CAP PO (21:02)
[2022-05-16 23:15] VITALS: BP 107/69; PULSE 64; RESP 18; TEMP 36.7; O2SAT 96
[2022-05-16 23:34] VITALS: BP 104/66; PULSE 60; RESP 18; TEMP 36.2; O2SAT 95
[2022-05-17] MEDS: Lactated Ringers 1,000 ML 75 ML IV (01:59)
[2022-05-17 07:41] LABS: ALT 898 U/L (14-59); AST 221 U/L (15-37); Albumin 3.2 g/dL (3.4-5.0); Alkaline Phosphatase 150 U/L (46-116); Anion Gap 7.1 mmol/L (3-11); BUN 6 mg/dL (7-18); Bilirubin, Direct 1.5 mg/dL (0.0-0.2); Bilirubin, Total 2.5 mg/dL (0.2-1.0); CO2 25.9 mmol/L (21.0-32.0); CREATININE 0.5 mg/dL (0.55-1.02); Calcium 8.9 mg/dL (8.5-10.1); Chloride 107 mmol/L (98-107); Estimated GFR 127.72 (mL/min/1.73m2); Glucose 90 mg/dL (74-106); Potassium 3.7 mmol/L (3.5-5.1); Sodium 140 mmol/L (136-145); Total Protein 6.6 g/dL (6.4-8.2)
[2022-05-17 07:45] VITALS: BP 103/64; PULSE 76; RESP 18; TEMP 36.9; O2SAT 97
[2022-05-17] MEDS: Docusate Sodium 100 MG CAP PO (08:14)
--- NOTE | 2022-05-17 09:05 | W.PM.PROGNOT ---
Date of Service Date of service: 05/17/22 Time of Service: 09:06 Objective Last Vital Signs Temp 36.9 C 05/17/22 07:45 Pulse 765 H 05/17/22 07:45 Resp 18 05/17/22 07:45 BP 103/64 05/17/22 07:45 Pulse Ox 97 05/17/22 07:45 Laboratory Results - last 24 hr 05/16/22 05/16/22 05/16/22 07:42 07:42 09:27 Sodium Potassium Chloride Carbon Dioxide Anion Gap BUN Creatinine Est GFR (CKD-EPI 2020) Glucose Calcium Total Bilirubin Conjugated Bilirubin 5.9 H AST ALT 1629 H Alkaline Phosphatase Total Protein Albumin COVID-19 Source Nasal/Nares SARS-CoV-2 (PCR) Negative 05/17/22 06:20 Sodium 140 Potassium 3.7 Chloride 107 Carbon Dioxide 25.9 Anion Gap 7.1 BUN 6 L Creatinine 0.5 L Est GFR (CKD-EPI 2020) 127.72 Glucose 90 Calcium 8.9 Total Bilirubin 2.5 H Conjugated Bilirubin 1.5 H AST 221 H ALT 898 H Alkaline Phosphatase 150 H Total Protein 6.6 Albumin 3.2 L COVID-19 Source SARS-CoV-2 (PCR)
--- NOTE | 2022-05-17 12:05 | W.PM.DS.N ---
Date of service: 05/17/22 Time of Service: 12:09 DS: Diagnosis Discharge Diagnosis (1) Elevated bilirubin: Status: Acute Asessment and Plan: Take ursodiol 2 times per day, and follow-up with your primary care physician. Please feel free to make an appointment with my office if you choose to pursue cholecystectomy. Discharge Plan Disposition Patient Disposition: HOME Condition: Stable Discharge Details Reason For Visit: Cholecystitis Admit Date/Time: 05/16/22 09:42 Admit Provider: Chuy Krishnan Attending Provider: Chuy Krishnan Primary Care Provider: Nito Castellanos [facility] Hospital Course: Abhishek is a 31-year-old woman with known cholelithiasis and multiple episodes of biliary colic, who presents to the hospital with recrudescence of midepigastric abdominal pain and vomiting. She underwent an ultrasound that demonstrated cholelithiasis. Additionally, she had elevated serum bilirubin level, as well as elevated transaminases. She underwent an MRCP that showed no evidence of choledocholithiasis. I recommended cholecystectomy for recurrent biliary colic, and what I suspected was a transient common bile duct stone. She declined surgical intervention. She inquired about lithotripsy and ERCP. I explained that ERCP is not indicated for cholelithiasis in the absence of choledocholithiasis. I called [facility] and [facility] to inquire about gallstone lithotripsy. Surgeons at [facility] indicated that that procedure was not available, and the brazing machine tender at [facility] would not offer that for gallstones. I relayed this information to Abhishek. By the morning of May 17, her liver function tests were improving, and she was tolerating a diet without any pain. Home Meds and New Rx's Prescriptions: New ursodiol 300 mg capsule 300 mg PO BID Qty: 60 0RF Held chelidonium tablet PO Hold Instructions: I recommend avoiding this medication to be sure that it is not the cause of your liver injury, but you are free to discuss it with your primary care physician Rx Instructions: pt uses these when she feels an attack coming on No Action docusate sodium [Colace] 100 mg capsule 100 mg PO BID Qty: 120 2RF lypo optimize capsule PO nystatin 100,000 unit/gram ointment 1 applic topical BID Qty: 60 1RF ciprofloxacin-dexamethasone [Ciprodex] 0.3-0.1 % drops,suspension 4 p otic (ear) BID 7 Days Qty: 7.5 1RF Rx Instructions: Left ear loteprednol etabonate [Lotemax] 0.5 % drops,gel 1 drp ophthalmic (eye) QID vit B cmplx #9-FA-vit C-vit E 1-60-5 mg-mg-unit Tablet 1 tab PO DAILY Discharge Instructions Instructions: Gallstones (GEN) Activity:: Activity as Tolerated Equipment/Supplies:: No Equipment Needed Diet:: Low fat Discharge Orders Discharge Orders: Discharge Order (Routine); Ordered 05/17/22 Ordered By: Chuy Krishnan DS: Summary Time Spent with Patient providing and/or coordinating discharge services: Less than 30 minutes Status at Discharge Functional status at discharge: independent ambulation Overall status at discharge: patient is back to baseline Mental Status: mental status grossly normal Speech and Movement: speech and movement normal Mood: congruent mood Affect: normal affect Exam Const General: cooperative, healthy appearing and comfortable Orientation: awake and oriented x3 Eyes General: appearance normal, both eyes and all related structures Conjunctivae: conjunctivae normal Sclera: sclerae normal Resp Effort & Inspection: normal respiratory effort and able to speak in complete sentences Cardio Jugular venous pressure: no JVD Rate: regular rate GI Inspection: non-distended Palpation: soft, no guarding, no hernias and nontender Auscultation: normal bowel sounds Skin General skin exam: normal turgor Neuro General: patient alert, patient awake and patient oriented x3 Cognition: normal cognition Extrem Right lower extremity: no edema Left lower extremity: no edema Psych Mental Status: mental status grossly normal Speech and Movement: speech and movement normal Mood: congruent mood Affect: normal affect DS: Data Vitals/I&O Vitals and I&O: Vital Signs Temperature 98.4 F 05/17/22 07:45 Temperature Source Tympanic 05/17/22 07:45 Pulse 76 05/17/22 07:45 Pulse Rhythm Regular 05/17/22 08:20 Respiratory Rate 18 05/17/22 07:45 Respiratory Effort Non-Labored 05/17/22 08:20 Respiratory Depth Normal 05/17/22 08:20 Respiratory Pattern Normal 05/17/22 08:20 Blood Pressure 103/64 05/17/22 07:45 Blood Pressure Position Sitting 05/16/22 07:24 Pulse Oximetry 97 05/17/22 07:45 Oxygen Delivery Method Room Air 05/17/22 07:45 Oxygen Flow Rate 0 05/17/22 07:45 Pain Level 0 05/17/22 07:45 Comment 05/16/22 11:25 Intake & Output 05/16/22 05/17/22 05/17/22 23:59 11:59 23:59 Intake Total 1702.50 / 1702.50 Output Total 3700 / 3700 1100 / 1100 Balance -3700 / -2700 602.50 / 602.50 Intake: IV 1702.50 / 1702.50 Output: Urine 3700 / 3700 1100 / 1100 Other: Urine Color Yellow Light Dotty Urine Appearance Clear Clear Urine Odor Normal None Comment multiple voids Stool Size Moderate Stool Characteristics Soft Brown Voiding Methods Toilet Toilet Data Completed and Pending Labs on day of discharge: Labs from last 24 hours 05/17/22 05/17/22 06:20 06:20 Sodium 140 Potassium 3.7 Chloride 107 Carbon Dioxide 25.9 Anion Gap 7.1 BUN 6 L Creatinine 0.5 L Est GFR (CKD-EPI 2020) 127.72 Glucose 90 Calcium 8.9 Total Bilirubin 2.5 H Conjugated Bilirubin 1.5 H AST 221 H ALT 898 H Alkaline Phosphatase 150 H Total Protein 6.6 Albumin 3.2 L Hepatitis A IgM Ab Pending Hep Bs Antigen Pending Hep B Core Total Ab Pending Hepatitis C Antibody Pending Additional Comments Additional comments: You should follow-up with Dr. Mcrae for long-term management of ursodiol. PFSH All Active Problems Elevated bilirubin (Acute) Contact dermatitis (Acute) Left otitis externa (Acute) Yeast dermatitis (Acute) Cholelithiasis (Acute) Transaminitis (Acute) Cholelithiasis (Acute) RUQ pain (Acute) Sleep disturbance (Acute) Elevated glucose tolerance test (Acute) TMJ syndrome (Chronic) Oropharyngeal dysphagia (Chronic) ADHD (attention deficit hyperactivity disorder) (Chronic) Reports she is doing well without medication in her college courses. Medical History Encounter for repeat Papanicolaou smear of cervix due to previous unsatisfactory results Unsat pap 08/04/20 - discussed with patient. Will repeat PP. 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 Kahlil Palomo. Vitamin D deficiency Surgical History S/P eye surgery (01/14/19) Surgery for nasolacrimal duct obstruction S/P tonsillectomy and adenoidectomy Family History Mother Kidney disease S/p kidney transplant Type 1 diabetes mellitus Hypertension Father Gout Colon polyps Alcohol abuse Maternal Grandfather No problems noted. 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 Date GA/Weeks # Preg Succ Route Wgt Sex Labor Lgth Anesthesia Location Prov Complic 03/02/21 40 No vaginal 6 lb 14.9 oz Female Ivy Kyle Delivery Date: 03/02/21 Last Updated by: Ivy Kyle M.D. IOL for GDM. Insulin requiring. Stacia. Transient PP BP elevation. No Rx needed.
--- NOTE | 2022-05-17 13:40 | PDOC.CMDIS ---
- If Service Date Differs Date of service: 05/17/22 Time of Service: 13:40 LACE Index Scoring Tool - Questions: Length of Stay (in days): 1 Acuity (Admit via E.D.?): Yes E.D. Visits: 2 - Answers: Total Score: 6 Risk of Readmission: Low Risk Care Management Discharge Reason for Hospitalization: Cholecystitis Discharge Plan: Ele declines surgical intervention for recurrently biliary colic. Ele is discharged home via private vehicle with family. New RX is transmitted to [facility]. Mely is encouraged to schedule a follow up appointment with her PCP. She can also schedule and appointment with the Surgical team if she decides to pursue a cholecycectomy or return to the ER with any new, worsening or concerning symptoms. Patient/Family Education Needs: Review discharge instructions, limitations, medications and plan to follow up with community providers. Review ask me three.
[2022-05-20 11:02] LABS: Hepatitis A Antibody IgM Negative (Negative); Hepatitis B Core Antibody Negative (Negative); Hepatitis B surface Ag Negative (Negative); Hepatitis C Ab w Rflx HCV PCR Negative (Negative)
== END 2022-05-17 12:48 | disposition home or self-care (01) | DRG 446 ==
LOC: ER 10:45 → MS 13:23
PROVIDERS: Emergency Medicine; Admitting Provider Surgery; Emergency Provider Physician Assistant; PCP Naturopath; Visit Provider Surgery
DX: K80.20 Calculus of gallbladder without cholecystitis without obstruction (principal); R74.01 Elevation of levels of liver transaminase levels; R13.12 Dysphagia, oropharyngeal phase; F90.9 Attention-deficit hyperactivity disorder, unspecified type; E55.9 Vitamin D deficiency, unspecified; F32.5 Major depressive disorder, single episode, in full remission
CPT/HCPCS: 36415; 80053; 80076; 81025; 83690; 86704; 86709; 86803; 87340; 87635; 96361; 96374; 99285; 74181; 76705; 81003; 81015; 82248; 85025; G0378; J2405

== ENCOUNTER 2022-08-14 01:33 | Outpatient (CLI) | payer OTHER, SELFPAY ==
--- NOTE | 2022-08-14 07:45 | DI.MAMMO_ITS ---
Exam(s) MAMMO SCREENING EXAM: MAMMO SCREENING CLINICAL HISTORY: SCREENING MAMMO, Z12.31. TECHNIQUE: Bilateral full field digital CC and MLO mammographic images were obtained with 3D tomosyn thesis and utilizing computer aided detection (CAD). COMPARISON: None. Baseline mammogram. FINDINGS: There has been no significant change in the appearance and distribution of the fibroglandular tissue. There are no spiculated masses nor malignant appearing microcalcification groups. Benign-appearing microcalcifications noted bilaterally. There is no significant architectural distortion nor skin thickening-retraction. IMPRESSION: No radiographic evidence of malignancy. BI-RADS Category 2 - Benign Findings Breast Density - Category C - Heterogeneously dense Breast density Category C or D implies that the patient has dense breast tissue. Dense breast tissue can make it harder to find cancer on a mammogram. Dense breast tissue is also associated with an incr eased risk of breast cancer. This information about the result of the mammogram report was provided to the patient to raise their awareness. Use this report when you speak with the patient about their risks for breast cancer, which includes their family history. At that time, you may recommend additional screening tests (Ultrasoun d or MRI) as these tests may add significant information. A negative radiographic report should not delay biopsy if a dominant or clinically suspicious mass is present. Up to ten percent of cancers are not identified on mammography. A negative report may reinforce clinical impression. Adenosis and dense breasts may obscure an underlying neoplasm. False positive reports average 6 to 10%. Patient will receive a letter notifying them of these results.
== END 2022-08-14 01:53 ==
PROVIDERS: PCP Naturopath; Visit Provider Naturopath
DX: Z12.31 Encounter for screening mammogram for malignant neoplasm of breast (principal); R92.8 Other abnormal and inconclusive findings on diagnostic imaging of breast
CPT/HCPCS: 77063; 77067

== ENCOUNTER 2024-06-28 04:44 | Outpatient (CLI) | payer BC, OTHER, SELFPAY ==
[2024-06-28 07:37] LABS: Abs Immature Grans 0.02 10^3/uL (0.0-0.06); Absolute Basophil Count 0.06 10^3/uL (0.0-0.2); Absolute Eosinophil Count 0.27 10^3/uL (0.0-0.7); Absolute Lymphocyte Count 1.78 10^3/uL (1.2-3.4); Absolute Monocyte Count 0.43 10^3/uL (0.1-0.8); Absolute Neutrophil Count 3.57 10^3/uL (1.2-6.7); Eosinophils % 4.4 %; HCT 41.1 % (36.0-46.0); HGB 13.6 g/dL (11.2-15.7); Immature Grans % 0.3 %; MCHC 33.1 % (32.0-36.0); MCV 85 fL (80-95); MPV 11.3 fL (8.0-11.0); Neutrophils % 58.3 %; Platelet Count 254 10^3/uL (130-400); RBC 4.85 10^6/uL (3.93-5.22); RDW 13.3 % (11.7-14.6); RDW-SD 41.1 fL; WBC 6.13 10^3/uL (4.4-10.8)
[2024-06-28 07:46] LABS: Hemoglobin A1C 5.4 % (<5.7)
[2024-06-28 08:55] LABS: ALT 31 U/L (14-59); AST 19 U/L (15-37); Albumin 3.6 g/dL (3.4-5.0); Alkaline Phosphatase 99 U/L (46-116); Anion Gap 9.3 mmol/L (3-11); BUN 14 mg/dL (7-18); Bilirubin, Total 0.52 mg/dL (0.2-1.0); CO2 25.7 mmol/L (21.0-32.0); CREATININE 0.8 mg/dL (0.55-1.02); Calculated LDL 102 mg/dL (<100); Chloride 106 mmol/L (98-107); Cholesterol 191 mg/dL (<200); Estimated GFR 99.09 (mL/min/1.73m2); Ferritin 8 ng/mL (8-252); Folate 10.9 ng/mL (8.6-20.0); Glucose 104 mg/dL (74-106); HDL Cholesterol 58 mg/dL (40-60); Iron 78 ug/dL (50-170); Potassium 3.7 mmol/L (3.5-5.1); Sodium 141 mmol/L (136-145); TSH 0.47 uIU/mL (0.36-3.74); Total Protein 7.3 g/dL (6.4-8.2); Triglyceride 156 mg/dL (<150); Vitamin B12 535 pg/mL (193-986); Vitamin D 25 Total 27.1 ng/mL (30-100)
[2024-06-28 09:26] LABS: FREE T4 0.89 ng/dL (0.76-1.46)
[2024-06-28 17:57] LABS: T3,Free 4.2 pg/mL (2.8-5.3)
[2024-06-29 13:16] LABS: dsDNA Ab, IgG <22.0 IU/mL (<27.0)
[2024-06-29 15:15] LABS: ANA Interpretation Positive (Negative); ANA Titer Pattern 1:160 Speckled
== END 2024-06-28 04:45 | disposition home or self-care (01) ==
LOC: LBO 04:44
PROVIDERS: PCP Naturopath; Visit Provider Naturopath
DX: R59.0 Localized enlarged lymph nodes (principal); R42 Dizziness and giddiness; R53.83 Other fatigue; Z13.220 Encounter for screening for lipoid disorders; E55.9 Vitamin D deficiency, unspecified; E07.9 Disorder of thyroid, unspecified; D50.9 Iron deficiency anemia, unspecified; G70.00 Myasthenia gravis without (acute) exacerbation; K76.0 Fatty (change of) liver, not elsewhere classified; R76.0 Raised antibody titer; L65.8 Other specified nonscarring hair loss; D53.9 Nutritional anemia, unspecified; Z13.1 Encounter for screening for diabetes mellitus; E66.3 Overweight
CPT/HCPCS: 36415; 80053; 80061; 82306; 82607; 82728; 82746; 83036; 83525; 83540; 84439; 84443; 84481; 85025; 86038; 86225

== ENCOUNTER 2024-08-31 11:06 | Observation (INO) | payer BC, OTHER, SELFPAY ==
[2024-08-31] VITALS (22 sets, daily range): BP systolic 101–142; BP diastolic 28–93; PULSE 48–96; RESP 14–16; TEMP 36.6–37.2; O2SAT 96–100
--- NOTE | 2024-08-31 11:45 | DI.US_ITS ---
Exam(s) US ABDOMEN LIMITED EXAM: US ABDOMEN LIMITED CLINICAL HISTORY: RUQ pain, hx of cholelithiasis TECHNIQUE: Ultrasound abdomen performed using standard protocol. COMPARISON: MR MR ABDOMEN WO from 05/16/2022 US US ABDOMEN LIMITED from 05/16/2022 FINDINGS: LIVER: Normal elongated right lobe but 17.2 cm in length. Hemangioma again noted in left lobe.. No focal liver lesions are seen. GALLBLADDER: Multiple small mobile stones again noted. Mild wall thickening and hyperemia. No abnor mal gallbladder distention. No pericholecystic fluid identified. MADRIGAL'S SIGN: Positive. BILIARY SYSTEM: No intrahepatic or extrahepatic biliary ductal dilation. Common bile duct measures 6 millimeters, stable from prior exams. Right KIDNEY: Right kidney is normal in size. No evidence of renal calculi. No evidence of hydroneph rosis. No renal mass or cyst identified. PANCREAS: Normal where visualized. ASCITES: None seen. IMPRESSION: Cholelithiasis. There is mild wall thickening and hyperemia in the wall as well as positive sonograp hic Madrigal sign which could indicate acute cholecystitis. Common bile duct is 6 millimeters but not significantly changed from prior exams. DATA REPOSITORY:
[2024-08-31 11:47] LABS: Abs Immature Grans 0.05 10^3/uL (0.0-0.06); Absolute Basophil Count 0.08 10^3/uL (0.0-0.2); Absolute Monocyte Count 0.76 10^3/uL (0.1-0.8); Absolute Neutrophil Count 10.88 10^3/uL (1.2-6.7); Basophils % 0.6 %; Eosinophils % 0.8 %; HCT 40.5 % (36.0-46.0); HGB 12.8 g/dL (11.2-15.7); Immature Grans % 0.4 %; Lymphocytes % 9.2 %; MCH 26.8 pg (27.0-33.0); MCHC 31.6 % (32.0-36.0); MCV 85 fL (80-95); MPV 11.9 fL (8.0-11.0); Monocytes % 5.8 %; Neutrophils % 83.2 %; Platelet Count 274 10^3/uL (130-400); RBC 4.78 10^6/uL (3.93-5.22); RDW 13.6 % (11.7-14.6); RDW-SD 42.5 fL; WBC 13.08 10^3/uL (4.4-10.8)
[2024-08-31] MEDS: ACETAMINOPHEN 1,000 MG/100 ML BAG 400 MG IVPB ×3 (11:51→23:41)
[2024-08-31] MEDS: Ondansetron 4 MG/2 ML VIAL IVP ×3 (11:51→20:42)
[2024-08-31] MEDS: Famotidine 20 MG/2 ML VIAL IVP (11:51)
[2024-08-31] MEDS: Normal Saline 1,000 ML 1000 ML IV (11:52)
[2024-08-31 12:02] LABS: ALT 140 U/L (14-59); AST 204 U/L (15-37); Alkaline Phosphatase 144 U/L (46-116); Anion Gap 9.9 mmol/L (3-11); BUN 10 mg/dL (7-18); Bilirubin, Total 1.18 mg/dL (0.2-1.0); CO2 27.1 mmol/L (21.0-32.0); CREATININE 0.8 mg/dL (0.55-1.02); Calcium 9.5 mg/dL (8.5-10.1); Chloride 105 mmol/L (98-107); Estimated GFR 98.48 (mL/min/1.73m2); Glucose 184 mg/dL (74-106); Lipase 21 U/L (<78); Potassium 3.9 mmol/L (3.5-5.1); Sodium 142 mmol/L (136-145); Total Protein 7.6 g/dL (6.4-8.2)
--- NOTE | 2024-08-31 12:06 | ED.GENADUL_ITS ---
Discharge Plan Disposition Patient Disposition: Admit to [facility] Discharge Details Clinical Impression: Cholelithiasis Primary Care Provider: Nito Castellanos ED Provider: Jenny Heredia Home Meds and New Rx's Prescriptions: No Action vit B cmplx #9-FA-vit C-vit E 1-60-5 mg-mg-unit Tablet 1 tab PO DAILY ursodiol 300 mg capsule 300 mg PO BID Qty: 60 0RF HPI General Date/Time Provider Initiated Documentation: 08/31/24 11:29 . HPI Narrative: The patient is a 34-year-old female with a history of cholelithiasis, ADHD, myasthenia gravis, and Melkersson-Bao syndrome who presents with report of right upper quadrant pain. She has had an ongoing history of cholelithiasis. She reports experiencing nausea with 2 episodes of non-bloody vomiting. She does not have any diarrhea. In the past, she was advised to undergo cholecystectomy but declined due to her history of myasthenia gravis and potential exacerbation of her symptoms. She does not have any consumption of fatty foods the previous night. She also does not have any fever or chills. Related Data Home Medications ?Medication ?Instructions ?Recorded ?Confirmed vitamin B complex #9-folic 1 tab PO DAILY 05/16/22 08/31/24 acid-vit C-vit E 1 mg-60 mg-5 unit tablet ursodiol 300 mg capsule 300 mg PO BID gallstones #60 caps 05/17/22 08/31/24 Previous Rx's ?Medication ?Instructions ?Recorded ursodiol 300 mg capsule 300 mg PO BID gallstones #60 caps 05/17/22 Allergies Allergy/AdvReac Type Severity Reaction Status Date / Time erythromycin base Allergy Intermediate Skin Rash Verified 08/31/24 11:13 latex Allergy Intermediate Skin Rash Verified 08/31/24 11:13 penicillin G Allergy Intermediate Skin Rash Verified 08/31/24 11:13 gluten Allergy Mild intestinal Verified 08/31/24 11:13 bloating General Stated Complaint: Abd Prob ROSALES: 3 Exam Narrative Exam Narrative: General Appearance: Patient is alert and oriented. Vital signs: Within normal limits. HEENT: Within normal limits. Respiratory: Within normal limits. Cardiovascular: Cardiac rhythm is regular. Gastrointestinal: There is tenderness in the right upper quadrant of the abdomen without rebound or guarding. No CVA tenderness in the abdomen. Skin: Warm and dry, no rash. Neurological: Normal. Course Vital Signs Vital signs: Vital Signs Temperature 37.2 C 08/31/24 11:10 Pulse 65 08/31/24 11:10 Respiratory Rate 16 08/31/24 11:10 Blood Pressure 142/68 H 08/31/24 11:10 Pulse Oximetry 100 08/31/24 11:10 Temperature 37.2 C 08/31/24 11:10 Pulse 65 08/31/24 11:10 Respiratory Rate 16 08/31/24 11:10 Blood Pressure 142/68 H 08/31/24 11:10 Pulse Oximetry 100 08/31/24 11:10 Pain Level 10 08/31/24 11:10 Lab/Test Results Lab/Test Results: Laboratory Tests Range/Units 08/31/24 11:30 WBC (4.4-10.8) 10^3/uL 13.08 H RBC (3.93-5.22) 10^6/uL 4.78 Hgb (11.2-15.7) g/dL 12.8 Hct (36.0-46.0) % 40.5 MCV (80-95) fL 85 MCH (27.0-33.0) pg 26.8 L MCHC (32.0-36.0) % 31.6 L RDW (11.7-14.6) % 13.6 Plt Count (130-400) 10^3/uL 274 MPV (8.0-11.0) fL 11.9 H Immature Gran % % 0.4 Neutrophils % % 83.2 Lymphocytes % % 9.2 Monocytes % % 5.8 Eosinophils % % 0.8 Basophils % % 0.6 Nucleated RBC % (0.0-0.3) % 0.0 Absolute Neutrophils (1.2-6.7) 10^3/uL 10.88 H Absolute Lymphocytes (1.2-3.4) 10^3/uL 1.20 Absolute Monocytes (0.1-0.8) 10^3/uL 0.76 Absolute Eosinophils (0.0-0.7) 10^3/uL 0.10 Absolute Basophils (0.0-0.2) 10^3/uL 0.08 Sodium (136-145) mmol/L 142 Potassium (3.5-5.1) mmol/L 3.9 Chloride (98-107) mmol/L 105 Carbon Dioxide (21.0-32.0) mmol/L 27.1 Anion Gap (3-11) mmol/L 9.9 BUN (7-18) mg/dL 10 Creatinine (0.55-1.02) mg/dL 0.8 Est GFR (CKD-EPI 2020) (mL/min/1.73m2) 98.48 Glucose (74-106) mg/dL 184 H Calcium (8.5-10.1) mg/dL 9.5 Total Bilirubin (0.2-1.0) mg/dL 1.18 H AST (15-37) U/L 204 H ALT (14-59) U/L 140 H Alkaline Phosphatase (46-116) U/L 144 H Total Protein (6.4-8.2) g/dL 7.6 Albumin (3.4-5.0) g/dL 4.0 Lipase (<78) U/L 21 Medical Decision Making Initial Assessment: 34-year-old female with a history of cholelithiasis, ADHD, myasthenia gravis, and Melkersson-Bao syndrome presents with right upper quadrant pain, nausea, and 2 episodes of vomiting without blood. No associated chest pain, shortness of breath, diarrhea, fever, or chills. Tender in the right upper quadrant without rebound or guarding, no CVA tenderness. ED Course: - Ordered ultrasound, CBC, CMP, and lipase. Ultrasound shows evidence of cholelithiasis with hyperemia and wall thickening consistent with likely cholecystitis, mild leukocytosis at 13,000, elevated AST and ALP at 201 and 121 consecutively, mild elevation alk phos at 155, lipase within normal limits and electrolytes within normal limits. Case was discussed with Dr. Krishnan, surgery and as patient is in persistent pain with leukocytosis, elevated LFTs and evidence of cholecystitis on ultrasound, patient will likely require surgery for cholecystectomy. Patient is agreeable to this plan at this time Final Assessment: Patient with right upper quadrant pain and history of cholelithiasis. Diagnostic tests ordered to evaluate condition. Consider surgical consultation if ultrasound confirms gallstones, given history of myasthenia gravis and previous concerns about symptom exacerbation. Clinical Impression: - Right upper quadrant pain MDM Components Evaluation: - Number of Differential Diagnoses or Management Options: Cholelithiasis - Amount and Complexity of Data Reviewed: Ultrasound, CBC, CMP, lipase - Risk of Complication and Morbidity or Mortality: Consideration of surgical consultation due to history of myasthenia gravis and potential for symptom exacerbation. Quality:SDOH Health Related Social Needs: No Data to Display PFSH All Active Problems (Updated 08/31/24 @ 13:59 by ROSALINDA Chandler) Breast pain, right (Acute) Contact dermatitis (Acute) Left otitis externa (Acute) Yeast dermatitis (Acute) Cholelithiasis (Acute) Cholelithiasis (Acute) RUQ pain (Acute) Sleep disturbance (Acute) Elevated glucose tolerance test (Acute) TMJ syndrome (Chronic) Oropharyngeal dysphagia (Chronic) ADHD (attention deficit hyperactivity disorder) (Chronic) Reports she is doing well without medication in her college courses. Medical History Encounter for repeat Papanicolaou smear of cervix due to previous unsatisfactory results Unsat pap 08/04/20 - discussed with patient. Will repeat PP. 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 Kahlil Palomo. Vitamin D deficiency Surgical History S/P eye surgery (01/14/19) Surgery for nasolacrimal duct obstruction S/P tonsillectomy and adenoidectomy Family History Mother Kidney disease S/p kidney transplant Type 1 diabetes mellitus Hypertension Father Gout Colon polyps Alcohol abuse Maternal Grandfather No problems noted. 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 Date GA/Weeks # Preg Succ Route Wgt Sex Labor Lgth Anesth esia Location [facility] 03/02/21 40 No vaginal 3143.962 g Female Renetta Kyle Delivery Date: 03/02/21 Last Updated by: Ivy Kyle M.D. IOL for GDM. Insulin requiring. Stacia. Transient PP BP elevation. No Rx needed.
[2024-08-31 12:20] LABS: Bilirubin Negative (Negative); Blood Negative (Negative); Clarity Clear (Clear); Glucose Negative (Negative); Ketones >=160 mg/dL (Negative); Leukocyte Esterase Negative (Negative); Nitrite Negative (Negative); Specific Gravity 1.025 (1.005-1.025); Urobilinogen 0.2 mg/dL (Up to 0.2); pH 6.5 (5-8)
--- NOTE | 2024-08-31 15:40 | W.PC.ACHO ---
Registration Status: Primary Language: Preferred Language: ED Information & Data Chief Complaint Abd Prob 08/31/24 12:06 Triage Note has pcp, been working with 08/31/24 11:10 her for months, has hx of gallbladder issues. pt reports this usuallu happens after fatty foods, this time it was more random since she is not ingesting fatty foods. Nausea and abd pain are only s/s. Medical / Surgical History (Last Reviewed 05/16/22 @ 15:52 by Chuy Krishnan MD) (spontaneous vaginal delivery) Gestational diabetes mellitus (GDM) Encounter for repeat Papanicolaou smear of cervix due to previous unsatisfactory results Major depressive disorder in full remission Hyperthyroidism affecting Nasolacrimal duct obstruction, bilateral Lagophthalmos Vitamin D deficiency Lyme disease (Last Reviewed 05/16/22 @ 15:52 by Chuy Krishnan MD) S/P eye surgery (01/14/19) S/P tonsillectomy and adenoidectomy Most Recent Vital Signs Temperature 37.2 C 08/31/24 11:10 Pulse 75 08/31/24 13:40 Respiratory Rate 16 08/31/24 11:10 Blood Pressure 118/28 L 08/31/24 12:01 Blood Pressure Mean 55 08/31/24 12:01 Pulse Oximetry 100 08/31/24 13:40 Pain Level 10 08/31/24 11:10 Allergies erythromycin base Allergy (Intermediate, Verified 08/31/24 11:13) Skin Rash [place] Lv[facility]. latex Allergy (Intermediate, Verified 08/31/24 11:13) Skin Rash [place] L[facility]. penicillin G Allergy (Intermediate, Verified 08/31/24 11:13) Skin Rash [place] [facility]. gluten Allergy (Mild, Verified 08/31/24 11:13) intestinal bloating IV IV Catheter Type [Left Saline Lock Antecubital] IV Catheter Gauge [Left 20 Antecubital] Diagnostics 08/31/24 08/31/24 Range/Units 12:14 11:30 WBC 13.08 H (4.4-10.8) 10^3/uL RBC 4.78 (3.93-5.22) 10^6/uL Hgb 12.8 (11.2-15.7) g/dL Hct 40.5 (36.0-46.0) % MCV 85 (80-95) fL MCH 26.8 L (27.0-33.0) pg MCHC 31.6 L (32.0-36.0) % RDW 13.6 (11.7-14.6) % Plt Count 274 (130-400) 10^3/uL MPV 11.9 H (8.0-11.0) fL Immature Gran % 0.4 % Neutrophils % 83.2 % Lymphocytes % 9.2 % Monocytes % 5.8 % Eosinophils % 0.8 % Basophils % 0.6 % Nucleated RBC % 0.0 (0.0-0.3) % Absolute Neutrophils 10.88 H (1.2-6.7) 10^3/uL Absolute Lymphocytes 1.20 (1.2-3.4) 10^3/uL Absolute Monocytes 0.76 (0.1-0.8) 10^3/uL Absolute Eosinophils 0.10 (0.0-0.7) 10^3/uL Absolute Basophils 0.08 (0.0-0.2) 10^3/uL Sodium 142 (136-145) mmol/L Potassium 3.9 (3.5-5.1) mmol/L Chloride 105 (98-107) mmol/L Carbon Dioxide 27.1 (21.0-32.0) mmol/L Anion Gap 9.9 (3-11) mmol/L BUN 10 (7-18) mg/dL Creatinine 0.8 (0.55-1.02) mg/dL Est GFR (CKD-EPI 2020) 98.48 (mL/min/1.73m2) Glucose 184 H (74-106) mg/dL Calcium 9.5 (8.5-10.1) mg/dL Total Bilirubin 1.18 H (0.2-1.0) mg/dL AST 204 H (15-37) U/L ALT 140 H (14-59) U/L Alkaline Phosphatase 144 H (46-116) U/L Total Protein 7.6 (6.4-8.2) g/dL Albumin 4.0 (3.4-5.0) g/dL Lipase 21 (<78) U/L Urine Color Yellow (Yellow) Urine Clarity Clear (Clear) Urine pH 6.5 (5-8) Ur Specific [place] 1.025 (1.005-1.025) Urine Protein Trace (Neg-Trace) mg/dL Urine Ketones >=160 H (Negative) mg/dL Urine Blood Negative (Negative) Urine Nitrite Negative (Negative) Urine Bilirubin Negative (Negative) Urine Urobilinogen 0.2 (Up to 0.2) mg/dL Ur Leukocyte Esterase Negative (Negative) Urine Glucose Negative (Negative) mg/dL [id number] Documentation POC Urine Test Start: 08/31/24 11:38 Freq: .Urine Test Status: Active Protocol: Activity Type Activity Date Activity User E-sign Co-sign Detail Recorded Client Recorded Date Recorded By Document 08/31/24 12:16 N.RILR [id number] 08/31/24 12:16 N.RILR Intake and Output - 24 Hour Total 08/31/24 11:06 thru 08/31/24 13:52 Intake Total 1100 Balance 1100 Weight 86.183 kg Intake: IV 1100 Falls Risk Assessment History of Falls No History 08/31/24 11:36 Contributing Factors No Factors 08/31/24 11:36 Ambulatory Aids Independent 08/31/24 11:36 Tubes/Lines None 08/31/24 11:36 Gait Evaluation No gait disturbance 08/31/24 11:36 Cognition No cognitive impairment 08/31/24 11:36 Fall Total Score 0 08/31/24 11:36 Level of Risk Standard/Low Risk 08/31/24 11:36 v v v v v v v v v Sending and/or Receiving Nurses: Please use comment section below to note any information pertinent to the patient hand-off not included above. Information / Comments: Report received from: Report from Edward at 15:33pm
[2024-08-31] MEDS: Lactated Ringers 1,000 ML 75 ML IV (16:49)
[2024-08-31] MEDS: Normal Saline Flush 10 ML SYR IVP ×3 (16:49→20:43)
[2024-08-31] MEDS: Enoxaparin 40 MG/0.4 ML SYR SC (18:03)
[2024-08-31] MEDS: PIPERACILLIN/TAZO 3.375 GM in Normal Saline 50 ML IVPB (18:04)
--- NOTE | 2024-08-31 19:50 | HPE_ITS ---
Date of service: 08/31/24 Time of Service: 19:50 Assessment and Plan Assessment and plan (1) Cholecystitis: Status: Acute Assessment and plan: The history, exam and imaging are all consistent with cholecystitis. But her bilirubin is also a bit elevated and given her history of choledocolithiasis, I think it is reasonable to repeat the bilirubin before removing the gallbladder. If the bilirubin is going up, then MRCP would be the next best step. Alternatively, if the bilirubin improves with basic hydration, then I think cholecystectomy is approprate. In the meantime, I will add some antibiotics to reduce infectious complications. Although her myasthenia gravis also complicates this a bit, it seems very well-controlled without any medical therapy at this time, and in that regards I think the overall risk with regards to laparoscopic cholecystectomy is extremely low. I explained the nature of cholecystectomy to Ana and her , and reviewed the anticipated prognosis and recovery. I think she has a very good understanding of this. I will plan to repeat the bilirubin tomorrow and adjust accordingly if needed. History of Present Illness History of Present Illness Chief Complaint: abdominal pain with nausea N arrative: Ele is a 34 year old woman with a medical history that is most significant for myasthenia gravis and known cholelithiasis. She comes to the emergency department with about a days worth of increasing abdominal pain that is mostly in the mid epigastrium and right upper quadrant associated with nausea, loss of appetite. Symptoms are very similar to what she experienced during previous episodes of symptomatic biliary colic, and choledocholithiasis. During her last encounter, it seems like she had transient choledocholithiasis that cleared on its own. At that time, she was advised to undergo cholecystectomy, but she preferred a trial of nonoperative therapy, and is recently been trialing ursodiol. And despite diligent effort to modify her diet to avoid biliary triggers, she has not enjoyed success with that. When she came to the emergency department, she found to have a leukocytosis around 13,000. She also has a mild increase in her SilDerm bilirubin level and transaminases. Lipase is normal. She underwent an ultrasound that demonstrated cholelithiasis, and a hyperemic gallbladder wall consistent with acute cholecystitis. Review of Systems Constitutional Constitutional: Denies body ache(s), Denies fever(s), Denies lethargy, Denies poor appetite and Denies weakness Eyes Eyes: Reports system reviewed and no additional complaints, except as documented ENT Ears, Nose, Mouth, and Throat: Reports system reviewed and no additional complaints, except as documented Cardiovascular Cardiovascular: Denies chest pain and Denies dyspnea Respiratory Respiratory: Denies chest congestion, Denies cough and Denies dyspnea Gastrointestinal Gastrointestinal: Reports abdominal pain, Reports nausea and Denies vomiting Musculoskeletal Musculoskeletal: Denies abnormal gait, Denies muscle weakness and Reports tingling Neurologic Neurologic: Denies abnormal gait, Reports tingling and Denies weakness Psychiatric Psychiatric: Reports system reviewed and no additional complaints, except as documented Hematologic/Lymphatic Hematologic/Lymphatic: Denies easy bleeding, Denies easy bruising and Denies lymphadenopathy Allergic/Immunologic Allergic/Immunologic: Reports system reviewed and no additional complaints, except as documented PFSH All Active Problems (Updated 08/31/24 @ 20:11 by Chuy Krishnan MD) Cholecystitis (Acute) Breast pain, right (Acute) Contact dermatitis (Acute) Left otitis externa (Acute) Yeast dermatitis (Acute) Cholelithiasis (Acute) Cholelithiasis (Acute) RUQ pain (Acute) Sleep disturbance (Acute) Elevated glucose tolerance test (Acute) TMJ syndrome (Chronic) Oropharyngeal dysphagia (Chronic) ADHD (attention deficit hyperactivity disorder) (Chronic) Reports she is doing well without medication in her college courses. Medical History (spontaneous vaginal delivery) 03/02/2021. Kahlil Palomo. Gestational diabetes mellitus (GDM) Encounter for repeat Papanicolaou smear of cervix due to previous unsatisfactory results Unsat pap 08/04/20 - discussed with patient. Will repeat PP. 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 Maternal Grandmother Dementia Type 2 diabetes mellitus Hyperlipidemia Heart disease Hypertension Paternal Grandfather Alcohol abuse Paternal Grandmother Type 2 diabetes mellitus Other COPD (chronic obstructive pulmonary disease) Social History Smoking/Tobacco Use Status: Never Tobacco: How many years used: 6 Smoking risk assessment performed?: Yes Alcohol Intake: former Drug use: Never Substance use type: does not use Household members: spouse Housing: apartment Number of Children: 1 current occupation: [employer] What is your relationship status?: Panel score (0-1 are the most socially isolated patients): 1 Araceli/Anabaptist: Sikhism Special araceli needs: No (Spiritualist) Do you feel safe at home: Yes Do you feel safe in your relationship?: Yes Female Reproductive History Menstrual control method: condoms History History 2 1 Para 0 Hx # Term Pregnancies 1 Multiple births 0 Hx # Pregnancies 0 Ectopic pregnancies 0 AB induced 0 Hx Number of Living Children 1 AB spontaneous 0 Past Pregnancies Del. Date GA/Weeks # Preg Succ Route Wgt Sex Labor Lgth Anesth esia Location Prov Complic 03/02/21 40 No vaginal 6 lb 14.9 oz Female A nne Anabella Delivery Date: 03/02/21 Last Updated by: Ivy Kyle M.D. IOL for GDM. Insulin requiring. Stacia. Transient PP BP elevation. No Rx needed. Meds Allergies and Home Medications Allergies Allergy/AdvReac Type Severity Reaction Status Date / Time erythromycin base Allergy Intermediate Skin Rash Verified 08/31/24 11:13 latex Allergy Intermediate Skin Rash Verified 08/31/24 11:13 penicillin G Allergy Intermediate Skin Rash Verified 08/31/24 11:13 gluten Allergy Mild intestinal Verified 08/31/24 11:13 bloating Home Medications ?Medication ?Instructions ?Recorded ?Confirmed ?Type vitamin B complex #9-folic 1 tab PO DAILY 05/16/22 08/31/24 History acid-vit C-vit E 1 mg-60 mg-5 unit tablet ursodiol 300 mg capsule 300 mg PO BID gallstones #60 caps 05/17/22 08/31/24 Rx Exam Const General: cooperative, comfortable and no acute distress HENMT Head: normal to inspection Eyes General: appearance normal, both eyes and all related structures Neck Neck: lymphadenopathy noted Resp Effort & Inspection: no cough Auscultation: clear to auscultation bilaterally Cardio Rate: regular rate Rhythm: regular rhythm Heart Sounds: S1 normal and S2 normal GI Palpation: soft, guarding in the RUQ, no hernias, no masses and tender in the RUQ Percussion: normal to percussion Auscultation: normal bowel sounds Skin Rashes: no rashes Neuro General: patient alert, patient awake and patient oriented x3 Extrem General: normal to inspection and full ROM Results Imaging Abdominal ultrasound report/results: report reviewed and image reviewed Labs 08/31/24 11:30 08/31/24 11:30 Labs: Laboratory Results - last 24 hr 08/31/24 08/31/24 11:30 12:14 WBC 13.08 H RBC 4.78 Hgb 12.8 Hct 40.5 MCV 85 MCH 26.8 L MCHC 31.6 L RDW 13.6 Plt Count 274 MPV 11.9 H Immature Gran % 0.4 Neutrophils % 83.2 Lymphocytes % 9.2 Monocytes % 5.8 Eosinophils % 0.8 Basophils % 0.6 Nucleated RBC % 0.0 Absolute Neutrophils 10.88 H Absolute Lymphocytes 1.20 Absolute Monocytes 0.76 Absolute Eosinophils 0.10 Absolute Basophils 0.08 Sodium 142 Potassium 3.9 Chloride 105 Carbon Dioxide 27.1 Anion Gap 9.9 BUN 10 Creatinine 0.8 Est GFR (CKD-EPI 2020) 98.48 Glucose 184 H Calcium 9.5 Total Bilirubin 1.18 H AST 204 H ALT 140 H Alkaline Phosphatase 144 H Total Protein 7.6 Albumin 4.0 Lipase 21 Urine Color Yellow Urine Clarity Clear Urine pH 6.5 Ur Specific [place] 1.025 Urine Protein Trace Urine Ketones >=160 H Urine Blood Negative Urine Nitrite Negative Urine Bilirubin Negative Urine Urobilinogen 0.2 Ur Leukocyte Esterase Negative Urine Glucose Negative Last Vital Signs Temp 98 F 08/31/24 19:16 Pulse 66 08/31/24 19:16 Resp 15 08/31/24 19:16 BP 102/70 08/31/24 19:16 Pulse Ox 96 08/31/24 19:16 Time Spent Time spent with Patient: 40-54 minutes Time was spent: preparing to see the patient(eg.review tests), obtaining and/or reviewing separately otained hiistory, ordering medications,tests, procedures, indepentently interpreting results, counseling the patient and care coordination
--- NOTE | 2024-09-01 | DI.MRI_ITS ---
Exam(s) MR ABDOMEN WO EXAM: MR ABDOMEN WO CLINICAL HISTORY: r/o choledoclithiasis TECHNIQUE: Multiplanar multisequence MRI of the Abdomen was performed. MR MR ABDOMEN WO from 05/16/2022 US US ABDOMEN LIMITED from 08/31/2024 FINDINGS: Lung bases: Unremarkable. Liver: There is a stable 1.5 cm lesion in the left lobe of the liver. It is hypointense on T1 and hy perintense on T2 weighted images. This corresponds to a hyperdense lesion seen on the ultrasound of the abdomen. This may represent a benign lesion such as a hemangioma. Nonemergent CT or MRI of the liver using the angioma protocol is recommended for further evaluation. No other hepatic lesions are present. Pancreas: Unremarkable. No evidence of a pancreatic mass or peripancreatic fluid collection. No find ings to suggest acute pancreatitis. Gallbladder and Bile Ducts: There are numerous gallstones present. There is no gallbladder wall thic kening. The common duct measures 7.7 mm. No intrahepatic biliary ductal dilatation. There are few filling defects seen in the distal common bile duct suspicious for choledocholithiasis. Adrenals: Unremarkable. Kidneys: Unremarkable. No evidence of a renal mass or hydronephrosis. Spleen: Unremarkable. Bowel: There is no evidence of bowel obstruction or bowel wall thickening. Aorta: Unremarkable. Soft Tissues: Unremarkable. Bone: Unremarkable. Lymph Nodes: Unremarkable. IMPRESSION: 1. Cholelithiasis. There are few filling defects seen in the distal common bile duct suspicious for choledocholithiasis. 2. The common bile duct measures 7.7 mm. This is at the upper limits of normal to mildly enlarged. 3. Stable 1.5 cm hepatic lesion. This may represent a hemangioma. A nonemergent MRI or CT scan of t he liver may be obtained for further characterization using the hepatic hemangioma protocol. DATA REPOSITORY:
[2024-09-01] MEDS: Ondansetron 4 MG/2 ML VIAL IVP ×4 (00:20→17:37)
[2024-09-01] MEDS: Normal Saline Flush 10 ML SYR IVP ×7 (00:21→19:38)
[2024-09-01] MEDS: PIPERACILLIN/TAZO 3.375 GM in Normal Saline 50 ML IVPB ×3 (01:13→18:23)
[2024-09-01] MEDS: ACETAMINOPHEN 1,000 MG/100 ML BAG 100 MG IVPB ×2 (06:02→17:33)
[2024-09-01 07:06] LABS: Abs Immature Grans 0.01 10^3/uL (0.0-0.06); Absolute Basophil Count 0.06 10^3/uL (0.0-0.2); Absolute Eosinophil Count 0.06 10^3/uL (0.0-0.7); Absolute Lymphocyte Count 1.06 10^3/uL (1.2-3.4); Absolute Monocyte Count 0.47 10^3/uL (0.1-0.8); Absolute Neutrophil Count 3.55 10^3/uL (1.2-6.7); Basophils % 1.2 %; Eosinophils % 1.2 %; HCT 37.1 % (36.0-46.0); HGB 12.2 g/dL (11.2-15.7); Immature Grans % 0.2 %; Lymphocytes % 20.3 %; MCH 27.1 pg (27.0-33.0); MCHC 32.9 % (32.0-36.0); MCV 82 fL (80-95); MPV 12.1 fL (8.0-11.0); Neutrophils % 68.1 %; Platelet Count 252 10^3/uL (130-400); RBC 4.51 10^6/uL (3.93-5.22); RDW 13.9 % (11.7-14.6); RDW-SD 41.7 fL; WBC 5.21 10^3/uL (4.4-10.8)
[2024-09-01 07:16] LABS: Lipase 21 U/L (<78)
[2024-09-01 07:31] LABS: Albumin 3.3 g/dL (3.4-5.0); Alkaline Phosphatase 189 U/L (46-116); Bilirubin, Direct 2.7 mg/dL (0.0-0.2); Bilirubin, Total 3.07 mg/dL (0.2-1.0); Total Protein 6.2 g/dL (6.4-8.2)
[2024-09-01 07:34] LABS: AST 942 U/L (15-37)
[2024-09-01 07:40] VITALS: BP 117/85; PULSE 72; RESP 18; TEMP 37.1; O2SAT 97
[2024-09-01 07:48] LABS: ALT 1355 U/L (14-59)
[2024-09-01] MEDS: Metoclopramide 10 MG/2 ML VIAL IVP (08:42)
[2024-09-01 08:47] VITALS: TEMP 36.9
--- NOTE | 2024-09-01 08:53 | INITIAL_ITS ---
Date of service: 09/01/24 Time of Service: 08:53 Care Management Initial Assmt Initial Assessment Reason for Hospitalization: Cholecystitis Functional Status/Living Situation Patient Presentation: Aaron may need a laparoscopic cholecystectomy and is down stairs getting an MRI. She works at the [employer] and will need a letter for work, per . No CM needs are idenified at this time. CM will follow. Town of Residence: [place] Resides with: Child (Daughter) and Spouse ( Junaid) Employment Status: Employed ([employer]) Instrumental Activities of Daily Living (ADLs): Independent Medications Medication Management: No Issues/Barriers identified Advance Directives Advance Directives: Do you have an Advance Directive: Y 10/16/21 11:27 AD On File at [facility]: Y 10/16/21 11:28 Date Asked 03/07/21 08/31/24 11:16 AD Date Reviewed 08/31/24 08/31/24 11:16 COLST On File at [facility] COLST Date Scanned Code Status Resuscitation Status Full Code Insurance Coverage/Financial Issues Insurance: BC/BS of [place] Shonna MORALES (U IDs Only) Financial Issues: None identified Care Team Visit Care Team Role Provider Type Nito Castellanos Primary Care Provider NATUROPATHIC DOCTOR ROSALINDA Chandler Emergency Provider PHYSICIANS PEST CONTROL WORKER HELPER Chuy Krishnan MD Admit Provider [facility] STAFF PHYSICIAN Attending Provider Discharge Potential Discharge Needs: PCP F/U Appt (Nito Castellanos) Anticipated Barriers to Discharge: None Identified Patient/Family Education Needs: Review discharge instructions, discuss Ask Me Three Transportation: Private vehicle Plan: Garett is receiving IV ABX and further medical work up is being done to determine if pt will need to go to the OR for a Laproscopic cholecystectomy. Anticipate pt will discharge home with no new services when medically ready for discharge. Pt will follow up with PCP and discharge plan of care as directed by the attending physician. will provide transportation. CM will follow. Social Determinants of Health Screening Will the Patient Participate in the Screening?: Declined to provide PFSH All Active Problems (Updated 09/01/24 @ 12:24 by Nasim Murillo CRNA) Myasthenia gravis (Chronic) Cholecystitis (Acute) Breast pain, right (Acute) Contact dermatitis (Acute) Left otitis externa (Acute) Yeast dermatitis (Acute) Cholelithiasis (Acute) Cholelithiasis (Acute) RUQ pain (Acute) Sleep disturbance (Acute) Elevated glucose tolerance test (Acute) TMJ syndrome (Chronic) Oropharyngeal dysphagia (Chronic) ADHD (attention deficit hyperactivity disorder) (Chronic) Reports she is doing well without medication in her college courses. Medical History (Updated 09/01/24 @ 12:24 by Nasim Murillo CRNA) (spontaneous vaginal delivery) 03/02/2021. Kahlil Palomo. Gestational diabetes mellitus (GDM) Encounter for repeat Papanicolaou smear of cervix due to previous unsatisfactory results Unsat pap 08/04/20 - discussed with patient. Will repeat PP. 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 Date GA/Weeks # Preg Succ Route Wgt Sex Labor Lgth Anesth esia Location Prov Complic 03/02/21 40 No vaginal 3143.962 g Female Renetta Kyle Delivery Date: 03/02/21 Last Updated by: Ivy Kyle M.D. IOL for GDM. Insulin requiring. Stacia. Transient PP BP elevation. No Rx needed.
[2024-09-01] MEDS: Lactated Ringers 1,000 ML 75 ML IV (11:04)
--- NOTE | 2024-09-01 11:48 | ANES.PREOP_ITS ---
General Info Date of Service Date Performed: 09/01/24 Height: 5 ft 2 in Weight: 91.626 kg Body Mass Index (BMI): 36.9 Surgical Procedure: Operation Date: 09/01/24 10:55 Proposed Procedure Side Surgeon p Cholecystectomy Laparoscopic Chuy Krishnan MD Meds Allergies and Home Medications Allergies Allergy/AdvReac Type Severity Reaction Status Date / Time erythromycin base Allergy Intermediate Skin Rash Verified 08/31/24 11:13 latex Allergy Intermediate Skin Rash Verified 08/31/24 11:13 penicillin G Allergy Intermediate Skin Rash Verified 08/31/24 11:13 gluten Allergy Mild intestinal Verified 08/31/24 11:13 bloating Home Medication ?Medication ?Instructions ?Recorded vitamin B complex #9-folic 1 tab PO DAILY 05/16/22 acid-vit C-vit E 1 mg-60 mg-5 unit tablet ursodiol 300 mg capsule 300 mg PO BID gallstones #60 caps 05/17/22 Current Visit Medications: Current Medications Generic Name Dose Route Start Last Admin Trade Name Freq PRN Reason Stop Dose Admin Enoxaparin Sodium 40 mg 08/31/24 18:00 08/31/24 18:03 Enoxaparin 40 Mg/0.4 Ml Syr SC 40 mg Q24H RAKESH Administration Hydromorphone HCl 1 mg 08/31/24 16:26 Hydromorphone 2 Mg/Ml Syr IVP Q6H PRN PRN Ringer's Solution 1,000 mls @ 75 mls/hr 08/31/24 16:26 09/01/24 11:36 IV 0 mls/hr INFUSION RAKESH Infusion Acetaminophen 1,000 mg in 100 mls @ 400 mls/hr 08/31/24 18:00 09/01/24 06:02 Ofirmev IVPB 100 mls/hr Q6H RAKESH Administration Piperacillin Sod/Tazobactam 50 mls @ 12.5 mls/hr 09/01/24 02:00 09/01/24 11:05 Sod 3.375 gm/ Sodium Chloride IVPB 12.5 mls/hr Q8H RAKESH Administration IV Miscellaneous Supplies 1 each 08/31/24 16:26 Iv Access IV DIRECTED RAKESH Ondansetron HCl 4 mg 08/31/24 16:26 09/01/24 11:37 Ondansetron 4 Mg/2 Ml Vial IVP 4 mg Q4H PRN PRN Administration Sodium Chloride 0 ml 08/31/24 16:26 09/01/24 06:19 Normal Saline Flush 10 Ml Syr IVP 10 ml PRN PRN Administration Sodium Chloride 0 ml 08/31/24 20:00 08/31/24 20:43 Normal Saline Flush 10 Ml Syr IVP 10 ml BID RAKESH Administration Sodium Chloride 0 ml 08/31/24 16:26 Normal Saline 10 Ml Vial IJ DIRECTED PRN PFSH Active Problems Active Problems: Problem Status Onset Code Cholecystitis Acute K81.9 Breast pain, right Acute N64.4 Contact dermatitis Acute L25.9 Left otitis externa Acute H60.92 Yeast dermatitis Acute B37.2 Cholelithiasis Acute K80.20 Cholelithiasis Acute K80.20 RUQ pain Acute R10.11 Sleep disturbance Acute G47.9 Elevated glucose tolerance test Acute R73.09 TMJ syndrome Chronic M26.629 Oropharyngeal dysphagia Chronic R13.12 ADHD (attention deficit hyperactivity disorder) Chronic Medical History Medical History (Updated 09/01/24 @ 12:24 by Nasim Murillo CRNA) (spontaneous vaginal delivery) 03/02/2021. Kahlil Palomo. Gestational diabetes mellitus (GDM) Encounter for repeat Papanicolaou smear of cervix due to previous unsatisfactory results Unsat pap 08/04/20 - discussed with patient. Will repeat PP. Major depressive disorder in full remission Hyperthyroidism affecting Nasolacrimal duct obstruction, bilateral Lagophthalmos Vitamin D deficiency Lyme disease Surgical History Surgical History S/P eye surgery (01/14/19) Surgery for nasolacrimal duct obstruction S/P tonsillectomy and adenoidectomy Tobacco Smoking/Tobacco Use Status: Never Alcohol Alcohol Intake: former Substance Use Substance use: Never Substance use type: does not use Prental History History 2 1 Para 0 Hx # Term Pregnancies 1 Multiple births 0 Hx # Pregnancies 0 Ectopic pregnancies 0 AB induced 0 Hx Number of Living Children 1 AB spontaneous 0 Past Pregnancies Del. Date GA/Weeks # Preg Succ Route Wgt Sex Labor Lgth Anesth esia Location Prov Complic 03/02/21 40 No vaginal 3143.962 g Female Renetta Kyle Delivery Date: 08/06/21 Last Updated by: Ivy Kyle M.D. IOL for GDM. Insulin requiring. Stacia. Transient PP BP elevation. No Rx needed. Vital Signs and Lab Results Vital Signs Most Recent Vital Signs in EMR: Most Recent Vital Signs Temp Pulse Resp BP Pulse Ox 36.9 C 72 18 117/85 97 09/01/24 08:47 09/01/24 07:40 09/01/24 07:40 09/01/24 07:40 09/01/24 07:40 Point of Care Results Point of Care Results: POC- Test(urine) Negative 08/31/24 12:16 Lab Results 09/01/24 06:15 08/31/24 11:30 Blood Type / Crossmatch: 2 No Data to Display Complete Blood Count: 2 White Blood Count 5.21 10^3/uL (4.4-10.8) 09/01/24 06:15 Red Blood Count 4.51 10^6/uL (3.93-5.22) 09/01/24 06:15 Hemoglobin 12.2 g/dL (11.2-15.7) 09/01/24 06:15 Hematocrit 37.1 % (36.0-46.0) 09/01/24 06:15 Platelet Count 252 10^3/uL (130-400) 09/01/24 06:15 Complete Metabolic Panel: 2 Sodium 142 mmol/L (136-145) 08/31/24 11:30 Potassium 3.9 mmol/L (3.5-5.1) 08/31/24 11:30 Chloride 105 mmol/L (98-107) 08/31/24 11:30 Carbon Dioxide 27.1 mmol/L (21.0-32.0) 08/31/24 11:30 BUN 10 mg/dL (7-18) 08/31/24 11:30 Creatinine 0.8 mg/dL (0.55-1.02) 08/31/24 11:30 Est GFR (CKD-EPI 2020) 98.48 (mL/min/1.73m2) 08/31/24 11:30 Calcium 9.5 mg/dL (8.5-10.1) 08/31/24 11:30 Albumin 3.3 g/dL (3.4-5.0) L 09/01/24 06:15 Glucose 184 mg/dL (74-106) H 08/31/24 11:30 Liver Function Panel: 2 Alanine Aminotransferase (ALT/SGPT) 1355 U/L (14-59) H 09/01/24 06:15 Aspartate Amino Transf (AST/SGOT) 942 U/L (15-37) H 09/01/24 06 :15 Coagulation Panel: 2 No Data to Display Cardiac Panel: 2 No Data to Display Arterial Blood Gas: 2 No Data to Display Venous Blood Gas: 2 No Data to Display Pancreas Panel: 2 Lipase 21 U/L (<78) 09/01/24 06:15 Thyroid Panel: 2 No Data to Display Infectious Disease: 2 No Data to Display Blood Cultures: 2 No Data to Display Toxicology Panel: 2 No Data to Display Panel: 2 No Data to Display Anesthesia Assessment and Plan Anesthesia History Personal History: No History of General Anesthesia Family History: No Family History of Anesthesia Complications Exercise Tolerance Exercise Tolerance: Metabolic Equivalents>4 Pertinent Negatives Pertinent Negatives: No Major Cardiovascular Symptoms or Complaints, No Major Pulmonary Symptoms or Complaints and No History of CVA/TIA Cardiac & Pulmonary Exam Cardiac Exam: Normal S1/S2 Heart Sounds Pulmonary Exam: Clear Bilateral Breath Sounds Implantable Cardiac Device Does patient have a Pacemaker or an ICD?: No Airway Exam Known Difficult Airway: No Mallampati Class: 1 Mouth Opening: Narrow (< 3cm) Thyromental Distance: Greater than 3 cm Neck Range of Motion: Full ROM Neck Circumference: Normal Teeth Condition: Normal Dentition ASA Classification ASA Score: ASA 3 Emergency Case?: No NPO Status NPO Status: NPO Clears >2 hours, Solids >8 hours Status Status: Pt. refuses testing, she was counseled on anesthesia risks Anesthesia Plan Resuscitation Status: Full Code Anesthesia Technique: General Anesthesia Airway Planned: Endotracheal Tube Monitors Used: Standard Monitors Preoperative Comments:: Pt. with history of Myasthenia Gravis mostly with facial and hand weakness in the past. 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 She has tried anticholinesterase inhibitor and glucocorticoid therapy but discontinued these due to side effect. Has had better outcome with ozone therapy. Currently nauseated x2 days, receiving zofran. Will add Palonosetron and compazine if needed after discussion with pharmacy. Discussed case with Dr. Krishnan recommending 1st case of day and ICU bed availability.
[2024-09-01 13:22] VITALS: BMI 36.9
[2024-09-01] MEDS: Prochlorperazine 10 MG/2 ML VIAL 2.5 MG IV ×2 (16:28→19:38)
--- NOTE | 2024-09-01 16:40 | DI.VRAD_ITS ---
PROCEDURE INFORMATION: Exam: MR Abdomen Without Contrast, Biliary System Exam date and time: 09/01/2024 3:30 PM Age: 34 years old Clinical indication: Screening exam; Other: R/O choledoclithiasis TECHNIQUE: Imaging protocol: MR of the abdomen without contrast. Exam focused on the biliary system and pancreatic ducts. Routine 3D-MRCP images were acquired and processed without radiologist supervision. COMPARISON: MR ABDOMEN WO 05/16/2022 10:32 AM FINDINGS: Liver: Stable 1.5 cm high T2 signal lesion left lobe liver, possibly a hemangioma. Gallbladder and biliary ducts: Stones at the gallbladder. Mild prominence of the common bile duct up to 7 mm. Several apparent stones distal common bile duct largest 2 mm. Pancreas: Unremarkable. No ductal dilation. Intraperitoneal space: No fluid collection. IMPRESSION: 1. Cholelithiasis. 2. Mild prominence of the common bile duct up to 7 mm. Several apparent stones distal common bile duct largest 2 mm. Dictated and Authenticated by: Edenilson Wilde MD. Orderin Eulogio Vera MD
--- NOTE | 2024-09-01 17:13 | CHAPLAIN ---
Scooby was resting in bed when I visited. She was not feeling well. She said this is the second time she's going through this, so she's knows some of what to expect. Her Junaid, a former [employer] employee, was with her and seems to be a good support. I explained my role and offered support.
[2024-09-01] MEDS: Enoxaparin 40 MG/0.4 ML SYR SC (17:33)
[2024-09-01] MEDS: Calcium Carbonate *TUMS* 500 MG CHEW 1000 MG PO (19:47)
--- NOTE | 2024-09-01 20:01 | W.PM.PROGNOT ---
Date of Service Date of service: 09/02/24 Time of Service: 20:01 Assessment and Plan Assessment and plan (1) Choledocholithiasis: Status: Acute Assessment and plan: Ana's liver function test were elevated this morning compared to her original presentation. She also had a little bit of dilation of the common bile duct relative to her age on her initial ultrasound. I ordered an MRCP today, which confirmed the presence of stones in the distal common bile duct. She will need ERCP in addition to her cholecystectomy. Fortunately, she has no signs of significant sepsis at this point. Her white blood cell count has normalized, and she seems to be tolerating the Zosyn okay. I contacted [facility] around 5:00 this evening, they declined transfer because of capacity. I spoke to the transfer center at [facility] around 7 PM, who will not consider transfer until tomorrow morning. They requested that I call back after 8 AM. I also have a call out to [facility] and I am awaiting their reply. Subjective Subjective Interval history since last seen: Raciel had quite a bit of nausea overnight, but this seems to be better this morning. She tells me she is just feeling ill overall, but not a whole lot different than yesterday. Pain seems to be pretty well-controlled. Exam GI Other: Abdomen remains soft, and not very tender. She is not distended. Objective Last Vital Signs Temp 98.4 F 09/01/24 08:47 Pulse 72 09/01/24 07:40 Resp 18 09/01/24 07:40 BP 117/85 09/01/24 07:40 Pulse Ox 97 09/01/24 07:40 Laboratory Results - last 24 hr 09/01/24 06:15 WBC 5.21 RBC 4.51 Hgb 12.2 Hct 37.1 MCV 82 MCH 27.1 MCHC 32.9 RDW 13.9 Plt Count 252 MPV 12.1 H Immature Gran % 0.2 Neutrophils % 68.1 Lymphocytes % 20.3 Monocytes % 9.0 Eosinophils % 1.2 Basophils % 1.2 Nucleated RBC % 0.0 Absolute Neutrophils 3.55 Absolute Lymphocytes 1.06 L Absolute Monocytes 0.47 Absolute Eosinophils 0.06 Absolute Basophils 0.06 Total Bilirubin 3.07 H Conjugated Bilirubin 2.7 H AST 942 H ALT 1355 H Alkaline Phosphatase 189 H Total Protein 6.2 L Albumin 3.3 L Lipase 21 Time Spent with Patient Time Spent with Patient: >50 minutes Time was spent: preparing to see the patient(eg.review tests), ordering medications,tests, procedures, referring, communicating with other health day care attendant, indepentently interpreting results, counseling the patient and care coordination
[2024-09-01] MEDS: HYDROmorphone 2 MG/ML SYR 1 MG IVP (21:32)
[2024-09-01 22:47] VITALS: BP 119/69; PULSE 74; RESP 18; TEMP 36.5; O2SAT 94
[2024-09-01] MEDS: ACETAMINOPHEN 1,000 MG/100 ML BAG 400 MG IVPB (23:51)
[2024-09-02] VITALS (49 sets, daily range): BP systolic 102–160; BP diastolic 56–98; PULSE 46–97; RESP 13–23; TEMP 36.6–37.6; O2SAT 91–99; BMI 36.9
[2024-09-02] MEDS: PIPERACILLIN/TAZO 3.375 GM in Normal Saline 50 ML IVPB ×3 (02:16→18:28)
[2024-09-02] MEDS: Normal Saline Flush 10 ML SYR IVP ×3 (02:16→22:26)
[2024-09-02] MEDS: ACETAMINOPHEN 1,000 MG/100 ML BAG 400 MG IVPB ×3 (05:54→22:27)
[2024-09-02] MEDS: Lactated Ringers 1,000 ML 75 ML IV ×3 (05:54→22:25)
[2024-09-02] MEDS: Prochlorperazine 10 MG/2 ML VIAL 2.5 MG IV (05:54)
--- NOTE | 2024-09-02 07:30 | W.PM.PROGNOT ---
Date of Service Date of service: 09/02/24 Time of Service: 07:30 Assessment and Plan Assessment and plan (1) Choledocholithiasis: Status: Acute Assessment and plan: Continue NPO status Continue abx Pain appears to be fairly well controlled at this time. Awaiting morning lab results Encouraged activity OOB as tolerated. Pulmonary toilet Awaiting to here back from [facility], if they will accept the patient in transfer for ERCP. Subjective Subjective Interval history since last seen: Arrive with patient sitting in bed, she states she is just waking up and feeling Okay this morning. Denies any nausea or vomiting. Exam Const General: cooperative, healthy appearing and acute distress Orientation: alert and oriented x3 Resp Effort & Inspection: normal respiratory effort, no audible wheezes and no cough GI Inspection: normal to inspection Palpation: soft, no guarding and tender Objective Last Vital Signs Temp 36.5 C 09/01/24 22:47 Pulse 74 09/01/24 22:47 Resp 18 09/01/24 22:47 BP 119/69 09/01/24 22:47 Pulse Ox 94 09/01/24 22:47 Laboratory Results - last 24 hr 09/01/24 06:15 Total Bilirubin 3.07 H Conjugated Bilirubin 2.7 H AST 942 H ALT 1355 H Alkaline Phosphatase 189 H Total Protein 6.2 L Albumin 3.3 L Time Spent with Patient Time Spent with Patient: <25 minutes Time was spent: preparing to see the patient(eg.review tests) and obtaining and/or reviewing separately [facility]
[2024-09-02 07:47] LABS: HCT 34.6 % (36.0-46.0); HGB 11.2 g/dL (11.2-15.7); MCH 27.1 pg (27.0-33.0); MCHC 32.4 % (32.0-36.0); MCV 84 fL (80-95); Platelet Count 224 10^3/uL (130-400); RBC 4.13 10^6/uL (3.93-5.22); RDW-SD 42.4 fL; WBC 5.59 10^3/uL (4.4-10.8)
[2024-09-02 08:09] LABS: ALT 942 U/L (14-59); AST 381 U/L (15-37); Albumin 3.2 g/dL (3.4-5.0); Alkaline Phosphatase 174 U/L (46-116); Anion Gap 10.2 mmol/L (3-11); BUN 7 mg/dL (7-18); Bilirubin, Direct 3.1 mg/dL (0.0-0.2); Bilirubin, Total 3.64 mg/dL (0.2-1.0); CO2 25.8 mmol/L (21.0-32.0); CREATININE 0.7 mg/dL (0.55-1.02); Calcium 9.1 mg/dL (8.5-10.1); Chloride 108 mmol/L (98-107); Estimated GFR 115.59 (mL/min/1.73m2); Glucose 85 mg/dL (74-106); Potassium 3.4 mmol/L (3.5-5.1); Sodium 144 mmol/L (136-145); Total Protein 6.3 g/dL (6.4-8.2)
[2024-09-02] MEDS: Escitalopram 10 MG TAB PO (08:22)
--- NOTE | 2024-09-02 10:06 | ANES.PREOP_ITS ---
General Info Date of Service Date Performed: 09/02/24 Height: 5 ft 2 in Weight: 91.626 kg Body Mass Index (BMI): 36.9 Surgical Procedure: Operation Date: 09/01/24 10:55 Proposed Procedure Side Surgeon p Cholecystectomy Laparoscopic Chuy Krishnan MD Operation Date: 09/02/24 12:10 Proposed Procedure Side Surgeon p Cholecystectomy Laparoscopic Abbie Jean Baptiste MD Meds Allergies and Home Medications Allergies Allergy/AdvReac Type Severity Reaction Status Date / Time erythromycin base Allergy Intermediate Skin Rash Verified 08/31/24 11:13 latex Allergy Intermediate Skin Rash Verified 08/31/24 11:13 penicillin G Allergy Intermediate Skin Rash Verified 08/31/24 11:13 gluten Allergy Mild intestinal Verified 08/31/24 11:13 bloating Home Medication ?Medication ?Instructions ?Recorded vitamin B complex #9-folic 1 tab PO DAILY 05/16/22 acid-vit C-vit E 1 mg-60 mg-5 unit tablet ursodiol 300 mg capsule 300 mg PO BID gallstones #60 caps 05/17/22 escitalopram oxalate 10 mg tablet 10 mg PO DAILY 09/01/24 Current Visit Medications: Current Medications Generic Name Dose Route Start Last Admin Trade Name Freq PRN Reason Stop Dose Admin Enoxaparin Sodium 40 mg 08/31/24 18:00 09/01/24 17:33 Enoxaparin 40 Mg/0.4 Ml Syr SC 40 mg Q24H RAKESH Administration Escitalopram Oxalate 10 mg 09/02/24 08:30 09/02/24 08:22 Escitalopram 10 Mg Tab PO 10 mg DAILY RAKESH Administration Hydromorphone HCl 1 mg 08/31/24 16:26 09/01/24 21:32 Hydromorphone 2 Mg/Ml Syr IVP 1 mg Q6H PRN PRN Administration Ringer's Solution 1,000 mls @ 75 mls/hr 08/31/24 16:26 09/02/24 05:54 IV 75 mls/hr INFUSION RAKESH Administration Acetaminophen 1,000 mg in 100 mls @ 400 mls/hr 08/31/24 18:00 09/02/24 08:50 Ofirmev IVPB Infused Q6H RAKESH Infusion Piperacillin Sod/Tazobactam 50 mls @ 12.5 mls/hr 09/01/24 02:00 09/02/24 06:03 Sod 3.375 gm/ Sodium Chloride IVPB Infused Q8H RAKESH Infusion IV Miscellaneous Supplies 1 each 08/31/24 16:26 Iv Access IV DIRECTED RAKESH Prochlorperazine Edisylate 2.5 mg 09/01/24 13:16 09/02/24 05:54 Prochlorperazine 10 Mg/2 Ml Vial IV 2.5 mg Q4H PRN PRN Administration Sodium Chloride 0 ml 08/31/24 16:26 09/02/24 02:16 Normal Saline Flush 10 Ml Syr IVP 20 ml PRN PRN Administration Sodium Chloride 0 ml 08/31/24 20:00 09/02/24 08:37 Normal Saline Flush 10 Ml Syr IVP 10 ml BID RAKESH Administration Sodium Chloride 0 ml 08/31/24 16:26 Normal Saline 10 Ml Vial IJ DIRECTED PRN PFSH Active Problems Active Problems: Problem Status Onset Code Choledocholithiasis Acute K80.50 Myasthenia gravis Chronic G70.00 Cholecystitis Acute K81.9 Breast pain, right Acute N64.4 Contact dermatitis Acute L25.9 Left otitis externa Acute H60.92 Yeast dermatitis Acute B37.2 Cholelithiasis Acute K80.20 Cholelithiasis Acute K80.20 RUQ pain Acute R10.11 Sleep disturbance Acute G47.9 Elevated glucose tolerance test Acute R73.09 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 Kahlil Palomo. Gestational diabetes mellitus (GDM) Encounter for repeat Papanicolaou smear of cervix due to previous unsatisfactory results Unsat pap 08/04/20 - discussed with patient. Will repeat PP. Major depressive disorder in full remission Hyperthyroidism affecting Nasolacrimal duct obstruction, bilateral Lagophthalmos Vitamin D deficiency Lyme disease Surgical History Surgical History S/P eye surgery (01/14/19) Surgery for nasolacrimal duct obstruction S/P tonsillectomy and adenoidectomy Tobacco Smoking/Tobacco Use Status: Never Alcohol Alcohol Intake: former Substance Use Substance use: Never Substance use type: does not use Prental History History 2 1 Para 0 Hx # Term Pregnancies 1 Multiple births 0 Hx # Pregnancies 0 Ectopic pregnancies 0 AB induced 0 Hx Number of Living Children 1 AB spontaneous 0 Past Pregnancies Del. Date GA/Weeks # Preg Succ Route Wgt Sex Labor Lgth Anesth esia Location Prov [facility] 03/02/21 40 No vaginal 3143.962 g Female Renetta Kyle Delivery Date: 03/02/21 Last Updated by: vIy Kyle M.D. IOL for GDM. Insulin requiring. Stacia. Transient PP BP elevation. No Rx needed. Vital Signs and Lab Results Vital Signs Most Recent Vital Signs in EMR: Most Recent Vital Signs Temp Pulse Resp BP Pulse Ox 36.6 C 59 L 18 132/88 97 09/02/24 07:34 09/02/24 08:34 09/02/24 07:34 09/02/24 08:34 09/02/24 07:34 Point of Care Results Point of Care Results: POC- Test(urine) Negative 08/31/24 12:16 Lab Results 09/02/24 07:20 09/02/24 07:20 Blood Type / Crossmatch: 2 No Data to Display Complete Blood Count: 2 White Blood Count 5.59 10^3/uL (4.4-10.8) 09/02/24 07:20 Red Blood Count 4.13 10^6/uL (3.93-5.22) 09/02/24 07:20 Hemoglobin 11.2 g/dL (11.2-15.7) 09/02/24 07:20 Hematocrit 34.6 % (36.0-46.0) L 09/02/24 07:20 Platelet Count 224 10^3/uL (130-400) 09/02/24 07:20 Complete Metabolic Panel: 2 Sodium 144 mmol/L (136-145) 09/02/24 07:20 Potassium 3.4 mmol/L (3.5-5.1) L 09/02/24 07:20 Chloride 108 mmol/L (98-107) H 09/02/24 07:20 Carbon Dioxide 25.8 mmol/L (21.0-32.0) 09/02/24 07:20 BUN 7 mg/dL (7-18) 09/02/24 07:20 Creatinine 0.7 mg/dL (0.55-1.02) 09/02/24 07:20 Est GFR (CKD-EPI 2020) 115.59 (mL/min/1.73m2) 09/02/24 07:20 Calcium 9.1 mg/dL (8.5-10.1) 09/02/24 07:20 Albumin 3.2 g/dL (3.4-5.0) L 09/02/24 07:20 Glucose 85 mg/dL (74-106) 09/02/24 07:20 Liver Function Panel: 2 Alanine Aminotransferase (ALT/SGPT) 942 U/L (14-59) H 09/02/24 07:20 Aspartate Amino Transf (AST/SGOT) 381 U/L (15-37) H 09/02/24 07 :20 Coagulation Panel: 2 No Data to Display Cardiac Panel: 2 No Data to Display Arterial Blood Gas: 2 No Data to Display Venous Blood Gas: 2 No Data to Display Pancreas Panel: 2 Lipase 21 U/L (<78) 09/01/24 06:15 Thyroid Panel: 2 No Data to Display Infectious Disease: 2 No Data to Display Blood Cultures: 2 No Data to Display Toxicology Panel: 2 No Data to Display Panel: 2 No Data to Display Anesthesia Assessment and Plan Anesthesia History Personal History: No History of General Anesthesia Family History: No Family History of Anesthesia Complications Exercise Tolerance Exercise Tolerance: Metabolic Equivalents>4 Pertinent Negatives Pertinent Negatives: No Symptoms of GERD Cardiac & Pulmonary Exam Cardiac Exam: Normal S1/S2 Heart Sounds Pulmonary Exam: Clear Bilateral Breath Sounds Implantable Cardiac Device Does patient have a Pacemaker or an ICD?: No Airway Exam Known Difficult Airway: No Mallampati Class: 1 Mouth Opening: Narrow (< 3cm) Thyromental Distance: Greater than 3 cm Neck Range of Motion: Full ROM Neck Circumference: Normal Teeth Condition: Normal Dentition ASA Classification ASA Score: ASA 3 Emergency Case?: No NPO Status NPO Status: NPO Clears >2 hours, Solids >8 hours Status Status: Not Per Patient (ordered urine HCG if able to provide prior to surgery. Pt just completed period and feels strongly that she is not at risk for being .) Anesthesia Plan Resuscitation Status: Full Code Anesthesia Technique: General Anesthesia Airway Planned: Endotracheal Tube Monitors Used: Standard Monitors and SedLine Preoperative Comments:: Pre-op is a supplement and update to anesthesia pre-op completed on 09/01/24. Pt. with history of Myasthenia Gravis mostly with facial and hand weakness in the past (especially with heat in summer months). 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 She has tried a anticholinesterase inhibitor and corticosteroid therapy but discontinued these due to side effect. Although patient did have less symptoms after taking anticholinesterase inhibitor and/or corticosteroid. Has had better outcome with ozone therapy. Currently nauseated x3 days, receiving zofran. Pt given Palonosetron (09/01) and Compazine with continued nausea/vomiting. Dr. Kareem Jean Baptiste covering general surgery today with communication to both [facility] and [facility]. Both facilities unable to take an acute surgical transfer today. Met with patient and explained risk for both intra-op and post-op given history. Pt is requesting surgery at [facility] and understands potential post-op risk. Kareem Padilla, [employer]
--- NOTE | 2024-09-02 10:09 | W.PM.PROGNOT ---
Date of Service Date of service: 09/02/24 Time of Service: 10:00 Assessment and Plan Assessment and plan (1) Acute cholecystitis: Status: Acute Assessment and plan: Yes I patient with acute cholecystitis and choledocholithiasis who has a neurologic disorder for which she is high risk for anesthesia. We are unable to get any kind of transfer in a timely fashion for either just an ERCP procedure or an inpatient transfer for surgery as well. In my opinion, the patient has minimal bile duct disease but very high risk for further passing stones with her gallbladder completely impacted with stones and infected. Anesthesia here has reviewed the neurologic issues again and feel that she is an acceptable risk although will require enhanced monitoring postop. For that reason we are adding her onto the schedule today for laparoscopic cholecystectomy and then will observe symptoms and liver function test postop. If there are retained but nonobstructing stones as evidenced by planned intraoperative cholangiogram, I will start to recontact tertiary care centers who performed ERCP. The surgery was described to the patient as follows: I have described the procedure of laparoscopic cholecystectomy with intraoperative cholangiogram in detail to the patient. I have outlined the possible risks of the procedure which include, injury to the common bile duct, injury to adjacent structures, bile leak, bleeding, wound infection. I have also described the situations under which conversion to an open cholecystectomy is required. The patient understands and agrees to proceed. (2) Choledocholithiasis: Status: Acute Subjective Subjective Interval history since last seen: Patient is hospital day #2, admitted with acute cholecystitis. On hospital day 1 bilirubin and LFTs were elevated and there was an attempt to transfer. To [facility] or [facility]. Patient states she has conotinued pain and nausea with vomiting. Is using frequent narcotics. Exam Const General: cooperative and uncomfortable Resp Effort & Inspection: normal respiratory effort Auscultation: clear to auscultation bilaterally Cardio Rate: regular rate, bradycardic and not tachycardic Rhythm: regular rhythm GI Inspection: normal to inspection and obesity Palpation: soft and tender (upper abdo, RUQ) Neuro General: patient alert and patient oriented x3 Gait: normal gait Psych Appearance: grossly normal Objective Last Vital Signs Temp 36.6 C 09/02/24 07:34 Pulse 59 L 09/02/24 08:34 Resp 18 09/02/24 07:34 BP 132/88 09/02/24 08:34 Pulse Ox 97 09/02/24 07:34 Laboratory Results - last 24 hr 09/02/24 07:20 WBC 5.59 RBC 4.13 Hgb 11.2 Hct 34.6 L MCV 84 MCH 27.1 MCHC 32.4 RDW 14.0 Plt Count 224 MPV 12.0 H Sodium 144 Potassium 3.4 L Chloride 108 H Carbon Dioxide 25.8 Anion Gap 10.2 BUN 7 Creatinine 0.7 Est GFR (CKD-EPI 2020) 115.59 Glucose 85 Calcium 9.1 Total Bilirubin 3.64 H Conjugated Bilirubin 3.1 H AST 381 H ALT 942 H Alkaline Phosphatase 174 H Total Protein 6.3 L Albumin 3.2 L Time Spent with Patient Time Spent with Patient: 35-49 minutes Time was spent: preparing to see the patient(eg.review tests), obtaining and/or reviewing separately otained hiistory, referring, communicating with other health career services director and counseling the patient
[2024-09-02 11:14] LABS: HCG Qual (Urine) Negative
[2024-09-02] MEDS: Omnipaque 300 MG/ML 50 ML BTL (14:27)
--- NOTE | 2024-09-02 14:48 | GB_PTH ---
PATIENT: Ele Kimble LOC: U#:[id number] AGE/SX: 34/F ROOM: RE08/31/[address]: Chuy Krishnan MD : 1990 BED: A DIS: 09/05/2024 SPEC #: [id number] RECD: 09/02/24 16:31 STATUS: CARLEE REQ #: [id number] CIERRA: 09/02/24 14:[address]: Chuy Krishnan DEPT: Surgical Specimen RECD BY: Jenny Dale ENTERED: 09/02/24 16:31 SP TYPE: GB OTHR DR: Nito Castellanos Tissues: 1 - GALLBLADDER Procedures: GROSS AND MICRO LEVEL 3 Comments: [id number]
--- NOTE | 2024-09-02 15:31 | BRIEFOP_ITS ---
Date of service: 09/02/24 Time of Service: 15:31 Brief Operative Note Procedure/Pre & Post Op Diagnoses/Livestock Nutrition Territory Manager: Operation Date: 09/02/24 12:10 Actual Procedures p Cholecystectomy Laparoscopic W/Cholangiogram - Abbie Jean Baptiste MD Pre-Op Diagnosis: ACUTE CHOLECYSTITIS Post-Op Diagnosis: ACUTE CHOLECYSTITIS Case Staff Physician Livestock Nutrition Territory Manager: Lola Dallas Physician Livestock Nutrition Territory Manager: Desmond Armijo Anesthesia Anesthesia Type: General LMA/ETT 30 Specimen/Culture Specimen(s): 1. GALLBLADDER Complications Complications: None
[2024-09-02] MEDS: HYDROmorphone 2 MG/ML SYR IVP ×2 (15:41→16:06)
--- NOTE | 2024-09-02 15:50 | DI.RAD_ITS ---
Exam(s) XR CHOLANGIOGRAM OPERATIVE EXAM: XR CHOLANGIOGRAM OPERATIVE CLINICAL HISTORY: ACUTE CHOLECYSTITIS TECHNIQUE: 2D and realtime digital imaging was performed. CONTRAST MATERIAL: Refer to procedure report. COMPARISON: US US ABDOMEN LIMITED from 08/31/2024 MR MR ABDOMEN WO from 09/01/2024 FINDINGS: Fluoroscopy was provided for Dr. Jean Baptiste during the performance of a intraoperative cholangiogram. . Please refer to the procedure report for complete details. Ka,r=13.5 mGy IMPRESSION: RADIATION DOSE DELIVERED: 0.0 0.0 0
[2024-09-02] MEDS: fentaNYL 100 MCG/2 ML VIAL IVP (15:51)
--- NOTE | 2024-09-02 16:43 | ROE_ITS ---
Operative Note Operative Note PRE-OP DIAGNOSIS: Acute cholecystitis, choledocholithiasis POST-OP DIAGNOSIS: same PROCEDURE: PREOPERATIVE DIAGNOSIS: Acute cholecystitis, choledocholithiasis POSTOPERATIVE DIAGNOSIS: Acute cholecystitis, choledocholithiasis SURGEON: Abbie Jean Baptiste M.D. POLICE COMMISSIONER: first melecio TELLEZ PROCEDURE : Laparoscopic cholecystectomy with intraoperative cholangiogram ANESTHESIA: General Endotracheal EBL: 30 mL INDICATIONS: Patient is hospital day 2 with acute cholecystitis and choledocholithiasis. She has small stones up to 2 mm in diameter and sludge in her common bile duct on ERCP. She has a dilated, stone impacted gallbladder. She is unable to be transferred to any institution in any kind of timely manner for ERCP. She is at risk for worsening infection from her gallbladder and decides to proceed with cholecystectomy. INTRAOPERATIVE FINDINGS: The gallbladder was found to be thick-walled, tensely distended and inflamed appearing with no adhesions. There is a tortuous infundibulum/cystic duct junction. Critical view is obtained and cholangiogram is performed using a Glasgow clamp. Unfortunately a fair amount of contrast went into the gallbladder which did not allow for a great deal of pressure into the common duct. The cholangiogram showed progressive filling of the cystic duct and the common bile duct with possible scant amount of contrast across the ampulla into the duodenum. There was good filling of the hepatic radicals as well. Small filling defects and an irregular appearance of the distal common bile duct were noted. COMPLICATIONS: None DVT PROPHYLAXIS: Subcu Lovenox and sequential compression devices SPECIMEN: Gallbladder and contents PROCEDURE NOTE IN DETAIL: The patient was administered satisfactory general endotracheal anesthesia and placed on the operating table in the supine position. A timeout was observed noting the patient's identity, the goal of the procedure and preoperative antibiotics. The abdomen was prepped with ChloraPrep and draped in sterile fashion. A supraumbilical incision was made through which the fascia was divided under direct vision. Stay sutures of 0 Vicryl were placed. The peritoneum was pierced, a Macedo trocar was inserted and pneumoperitoneum to 15 mmHg was established. The patient was then placed in the reverse Trendelenburg position. Under direct vision, a 5 mm port was placed in the upper mid epigastrium while two 5 mm ports were placed in the right lateral abdomen. The gallbladder was grasped by the fundus and elevated and then grasped by the infundibulum for retraction. With careful, tedious dissection, the peritoneum over the infundibulum was divided. This gave extra mobility and allowed the insertions of the cystic duct and cystic artery to be well-seen.. The cystic duct and cystic artery were both dissected circumferentially. The cystic artery was divided between clips. A Glasgow clamp was placed across the infundibulum, below the stones, and the needle inserted and aspirated bile. The cholangiogram was taken with the findings noted above. The infundibular retractor was replaced. The cystic duct was divided between clips. The remainder of the dissection was performed using the hook cautery. The gallbladder was dissected from the liver bed until held by its final attachments. The ligated structures were then viewed and there was good hemostasis and no leakage of bile. Finally, the gallbladder was removed completely, placed into an Endo Catch bag and brought out through the umbilical port site. Further inspection and irrigation of the gallbladder bed was performed and again the ligated structures are viewed, and confirmed to be stable. A 19 Cambodian Vicente drain was inserted into the abdomen and brought out through the upper 5 mm port site was sutured in place with a 2-0 nylon suture. The patient was then placed into the flat position and the effluent in the abdomen was suctioned. Finally, the ports were removed under direct vision and there was good hemostasis at all sites. The Macedo was removed resolving the pneumoperitoneum completely. The fascia at the Macedo site was closed with a [id number] 0 Vicryl suture. After irrigating the wounds and infiltrating with a local of 0.5% Marcaine, the skin edges were all reapproximated with subcuticular 4-0 Monocryl sutures. And gauze band aid dressings were placed. Sponge and instrument count correct. DISPOSITION: Patient was brought to recovery room in stable condition. ANESTHESIA TYPE: General LMA/ETT Refer to Anesthesia Record Date of Procedure: 09/02/24
--- NOTE | 2024-09-02 16:46 | PDOC.CMPRO ---
Date of service: 09/02/24 Time of Service: 16:46 Care Management Progress Note Progress Note Text Progress Note Text: Abhishek went to the OR here at [facility] today and underwent a Cholecystectomy Laparoscopic W/Cholangiogram. She was already in the OR when CM went to meet with her, and she is not currently back in her room. Prior to surgery it was noted that she would require extra monitoring post op due to a neurologic disorder for which she is high risk for anesthesia. CM did meet briefly with Abhishek's , Junaid Discharge Potential Discharge Needs: PCP F/U Appt and Surgical F/U Appt Anticipated Barriers to Discharge: None Identified Patient/Family Education Needs: Review discharge instructions, discuss Ask Me Three Transportation: Private vehicle (with Junaid) Plan: Anticipate that Abhishek will discharge home with no new services when medically ready for discharge. She will follow up with PCP, and the surgeon,and continue per her discharge plan of care. will provide transportation. CM will continue to follow. Social Determinants of Health Screening Will the Patient Participate in the Screening?: Declined to provide
--- NOTE | 2024-09-02 17:02 | W.PC.ACHO ---
Registration Status: Primary Language: Preferred Language: ED Information & Data Chief Complaint Abd Prob 08/31/24 12:06 Triage Note has pcp, been working with 08/31/24 11:10 her for months, has hx of gallbladder issues. pt reports this usuallu happens after fatty foods, this time it was more random since she is not ingesting fatty foods. Nausea and abd pain are only s/s. Medical / Surgical History (Last Updated 09/01/24 @ 12:24 by Nasim Murillo CRNA) (spontaneous vaginal delivery) Gestational diabetes mellitus (GDM) Encounter for repeat Papanicolaou smear of cervix due to previous unsatisfactory results Major depressive disorder in full remission Hyperthyroidism affecting Nasolacrimal duct obstruction, bilateral Lagophthalmos Vitamin D deficiency Lyme disease (Last Reviewed 08/31/24 @ 20:06 by Chuy Krishnan MD) S/P eye surgery (01/14/19) S/P tonsillectomy and adenoidectomy Most Recent Vital Signs Temperature 37.2 C 09/02/24 16:55 Temperature Source Temporal Artery Scan 09/02/24 16:55 Pulse 66 09/02/24 16:55 Pulse Rhythm Regular 08/31/24 16:15 Pulse 58 L 09/02/24 16:45 Respiratory Rate 16 09/02/24 16:55 Respiratory Effort Normal 08/31/24 16:15 Respiratory Depth Normal 08/31/24 16:15 Respiratory Pattern Normal 08/31/24 16:15 Blood Pressure 152/94 H 09/02/24 16:55 Blood Pressure Mean 97 09/02/24 16:45 Pulse Oximetry 94 09/02/24 16:55 Respiratory End-tidal CO2 36 09/02/24 16:45 Oxygen Delivery Method Rescue 2 Compact CPAP 09/02/24 16:55 Oxygen Flow Rate 0 09/02/24 16:55 Pain Level 5 09/02/24 16:39 Comment resting in bed 09/02/24 11:23 Allergies erythromycin base Allergy (Intermediate, Verified 08/31/24 11:13) Skin Rash [place] [employer]. latex Allergy (Intermediate, Verified 08/31/24 11:13) Skin Rash [facility] [employer]. penicillin G Allergy (Intermediate, Verified 08/31/24 11:13) Skin Rash [place] [employer]. gluten Allergy (Mild, Verified 08/31/24 11:13) intestinal bloating Active Medications Generic Name Dose Route Start Last Admin Trade Name Freq PRN Reason Stop Dose Admin Enoxaparin Sodium 40 mg 08/31/24 18:00 09/01/24 17:33 Enoxaparin 40 Mg/0.4 Ml Syr SC 40 mg Q24H RAKESH Administration Escitalopram Oxalate 10 mg 09/02/24 08:30 09/02/24 08:22 Escitalopram 10 Mg Tab PO 10 mg DAILY RAKESH Administration Fentanyl 0 mcg 09/02/24 12:22 09/02/24 15:51 Fentanyl 100 Mcg/2 Ml Vial IVP 50 mcg DIRECTED PRN Administration Hydromorphone HCl 1 mg 08/31/24 16:26 09/01/24 21:32 Hydromorphone 2 Mg/Ml Syr IVP 1 mg Q6H PRN PRN Administration Hydromorphone HCl 0 mg 09/02/24 15:36 09/02/24 16:06 Hydromorphone 2 Mg/Ml Syr IVP 0.5 mg DIRECTED PRN Administration Ringer's Solution 1,000 mls @ 75 mls/hr 08/31/24 16:26 09/02/24 05:54 IV 75 mls/hr INFUSION RAKESH Administration Acetaminophen 1,000 mg in 100 mls @ 400 mls/hr 08/31/24 18:00 09/02/24 16:16 Ofirmev IVPB 400 mls/hr Q6H RAKESH Administration Piperacillin Sod/Tazobactam 50 mls @ 12.5 mls/hr 09/01/24 02:00 09/02/24 10:45 Sod 3.375 gm/ Sodium Chloride IVPB 12.5 mls/hr Q8H RAKESH Administration Ringer's Solution 1,000 mls @ 75 mls/hr 09/02/24 12:30 09/02/24 16:40 IV 75 mls/hr INFUSION RAKESH Infusion Prochlorperazine Edisylate 2.5 mg 09/01/24 13:16 09/02/24 05:54 Prochlorperazine 10 Mg/2 Ml Vial IV 2.5 mg Q4H PRN PRN Administration Sodium Chloride 0 ml 08/31/24 16:26 09/02/24 02:16 Normal Saline Flush 10 Ml Syr IVP 20 ml PRN PRN Administration Sodium Chloride 0 ml 08/31/24 20:00 09/02/24 08:37 Normal Saline Flush 10 Ml Syr IVP 10 ml BID RAKESH Administration IV IV Catheter Type [Left Hand] Saline Lock IV Catheter Type [Right Peripheral IV Antecubital] IV Catheter Type [Left Peripheral IV Antecubital] IV Catheter Gauge [Left Hand] 22 IV Catheter Gauge [Right 20 Antecubital] IV Catheter Gauge [Left 20 Antecubital] Diagnostics 09/02/24 09/02/24 Range/Units 10:54 07:20 WBC 5.59 (4.4-10.8) 10^3/uL RBC 4.13 (3.93-5.22) 10^6/uL Hgb 11.2 (11.2-15.7) g/dL Hct 34.6 L (36.0-46.0) % MCV 84 (80-95) fL MCH 27.1 (27.0-33.0) pg MCHC 32.4 (32.0-36.0) % RDW 14.0 (11.7-14.6) % Plt Count 224 (130-400) 10^3/uL MPV 12.0 H (8.0-11.0) fL Sodium 144 (136-145) mmol/L Potassium 3.4 L (3.5-5.1) mmol/L Chloride 108 H (98-107) mmol/L Carbon Dioxide 25.8 (21.0-32.0) mmol/L Anion Gap 10.2 (3-11) mmol/L BUN 7 (7-18) mg/dL Creatinine 0.7 (0.55-1.02) mg/dL Est GFR (CKD-EPI 2020) 115.59 (mL/min/1.73m2) Glucose 85 (74-106) mg/dL Calcium 9.1 (8.5-10.1) mg/dL Total Bilirubin 3.64 H (0.2-1.0) mg/dL Conjugated Bilirubin 3.1 H (0.0-0.2) mg/dL AST 381 H (15-37) U/L ALT 942 H (14-59) U/L Alkaline Phosphatase 174 H (46-116) U/L Total Protein 6.3 L (6.4-8.2) g/dL Albumin 3.2 L (3.4-5.0) g/dL Urine HCG, Qual Negative [id number] Documentation POC Urine Test Start: 08/31/24 11:38 Freq: .Urine Test Status: Active Protocol: Activity Type Activity Date Activity User E-sign Co-sign Detail Recorded Client Recorded Date Recorded By Document 08/31/24 12:16 N.JOSSER [id number] 08/31/24 12:16 N.RILR Intake and Output - 24 Hour Total 08/31/24 11:06 thru 09/02/24 16:40 Intake Total 4932.417 Output Total 520 Balance 4412.417 Weight 91.626 kg Intake: IV 4932.417 Output: Urine 50 Emesis 470 Other: Urine Color Dark Dotty Urine Appearance Cloudy Urine Odor None Comment ad ty to BR- voided x1 Emesis Description None Falls Risk Assessment History of Falls No History 08/31/24 16:15 Contributing Factors No Factors 08/31/24 16:15 Ambulatory Aids Independent 08/31/24 16:15 Tubes/Lines None 08/31/24 16:15 Gait Evaluation No gait disturbance 08/31/24 16:15 Cognition No cognitive impairment 08/31/24 11:36 Fall Total Score 0 08/31/24 16:15 Level of Risk Standard/Low Risk 08/31/24 16:15 Problems (Last Updated 09/01/24 @ 12:24 by Nasim Murillo, FRONT FACER) Acute cholecystitis (Acute) Choledocholithiasis (Acute) Cholecystitis (Acute) v v v v v v v v v Sending and/or Receiving Nurses: Please use comment section below to note any information pertinent to the patient hand-off not included above. Information / Comments: Report received from: Yesenia John RN (PACU @ [id number])
[2024-09-02] MEDS: Ketorolac 15 MG/ML VIAL IVP (17:23)
[2024-09-02] MEDS: HYDROmorphone 2 MG/ML SYR 1 MG IVP ×2 (17:23→22:27)
[2024-09-02] MEDS: Enoxaparin 40 MG/0.4 ML SYR SC (18:31)
--- NOTE | 2024-09-02 18:55 | W.ANESPOSTOP ---
Postoperative Evaluation Date, Time and Location Date Performed: 09/02/24 Time Performed: 18:55 Patient Location: Med/Surg Vital Signs Most Recent Imported Vital Signs: Most Recent Vital Signs Temp Pulse Resp BP Pulse Ox 37.6 C H 56 L 16 125/65 98 09/02/24 17:59 09/02/24 17:59 09/02/24 17:59 09/02/24 17:59 09/02/24 18:12 Pain Score Most Recent Pain Score: Most Recent Pain Score Pain Level 3 09/02/24 18:23 Assessment Mental Status: Awake (Alert & Oriented to Patient Baseline) Airway and Respiratory Function: Patent airway with normal (patient baseline) respiratory exam Cardiovascular Function: Hemodynamically Stable Hydration Status: Adequately Hydrated Nausea & Vomiting: No Nausea or Vomiting Pain: Pain is tolerable per patient Peripheral Nerve Block: Patient did not receive a nerve block Postoperative Comments:: Normal respiratory drive and effort post-op. Extubated without event. Kareem Padilla CRNA
[2024-09-02] MEDS: Calcium Carbonate *TUMS* 500 MG CHEW PO (22:42)
[2024-09-02] MEDS: Simethicone 80 MG CHEW PO (22:42)
[2024-09-03] VITALS (7 sets, daily range): BP systolic 116–146; BP diastolic 70–80; PULSE 53–103; RESP 14–22; TEMP 36–38; O2SAT 93–98
[2024-09-03] MEDS: PIPERACILLIN/TAZO 3.375 GM in Normal Saline 50 ML IVPB ×3 (01:07→18:21)
[2024-09-03] MEDS: Ketorolac 15 MG/ML VIAL IVP ×2 (01:09→12:18)
[2024-09-03] MEDS: Normal Saline Flush 10 ML SYR IVP ×4 (01:13→23:08)
[2024-09-03] MEDS: Calcium Carbonate *TUMS* 500 MG CHEW PO ×2 (02:44→11:33)
[2024-09-03] MEDS: Simethicone 80 MG CHEW PO ×3 (02:44→13:23)
[2024-09-03] MEDS: HYDROmorphone 2 MG/ML SYR 1 MG IVP ×3 (02:45→21:44)
[2024-09-03] MEDS: ACETAMINOPHEN 1,000 MG/100 ML BAG 400 MG IVPB ×4 (03:56→21:46)
[2024-09-03 06:36] LABS: HGB 11.6 g/dL (11.2-15.7); MCH 27.2 pg (27.0-33.0); MCHC 32.2 % (32.0-36.0); MCV 84 fL (80-95); MPV 12.2 fL (8.0-11.0); Platelet Count 228 10^3/uL (130-400); RBC 4.27 10^6/uL (3.93-5.22); RDW 14.2 % (11.7-14.6); RDW-SD 43.4 fL; WBC 9.91 10^3/uL (4.4-10.8)
[2024-09-03 06:56] LABS: ALT 922 U/L (14-59); AST 398 U/L (15-37); Alkaline Phosphatase 182 U/L (46-116); Anion Gap 8.7 mmol/L (3-11); BUN 6 mg/dL (7-18); Bilirubin, Total 3.87 mg/dL (0.2-1.0); CO2 26.3 mmol/L (21.0-32.0); CREATININE 0.6 mg/dL (0.55-1.02); Calcium 9.3 mg/dL (8.5-10.1); Chloride 102 mmol/L (98-107); Estimated GFR 119.97 (mL/min/1.73m2); Glucose 105 mg/dL (74-106); Potassium 3.4 mmol/L (3.5-5.1); Sodium 137 mmol/L (136-145); Total Protein 6.4 g/dL (6.4-8.2)
[2024-09-03] MEDS: Escitalopram 10 MG TAB PO (08:24)
--- NOTE | 2024-09-03 09:42 | PGE_ITS ---
Date of Service Date of service: 09/03/24 Time of Service: 16:22 Assessment and Plan Assessment and plan (1) Acute cholecystitis: Status: Acute Assessment and plan: 34 female status post lap ebonie, postop day 1. We do have some concern for some small filling defects noted in the common bile duct on intraoperative cholangiogram. I suspect these are not leading to obstruction of bile flow but would like to follow her LFTs for at least 1 more day to see if the trend down. If she improves clinically, then we will progress her diet and move towards getting her home. If she does not improve in the next day or 2, pursue getting her an ERCP sooner than later. - low fat diet - encourage tylenol and toradol, try to avoid narcotics - Compazine for nausea and vomiting -DC IV fluids if clears intake is adequate -Encourage ambulation, incentive spirometer -Lovenox for prophylaxis -Monitor drain output -Labs in a.m. Subjective Subjective Interval history since last seen: Patient is a 34-year-old woman who underwent laparoscopic cholecystectomy yesterday. She had quite a bit inflammation. She had an intraoperative cholangiogram that showed some small filling defects in the distal common duct that were not felt to be obstructive. She had a BEN drain placed in the gallbladder fossa at the end of the case. Today she reports improvement in her abdominal pain. She mainly complains of upper back and shoulder pain, which she attributes to trapped gas. She has been up and ambulating. She is tolerating clear liquids. Unfortunately, when her diet was advanced to a low-fat diet she did have some vomiting. Labs today showed a normal white blood cell count, unremarkable electrolytes, but LFTs at all remain elevated with a bilirubin close to 4, alk phos in the 100- 150 range, AST and ALT in the 900s. These are mostly similar to yesterday's numbers. Exam Narrative Exam Narrative: Const General: cooperative Nutritional Appearance: Obese [facility] Head: normocephalic and atraumatic Ears: hearing grossly normal bilaterally Nose: external nose normal Mouth: moist mucous membranes Eyes General: appearance normal, both eyes and related structures Neck Neck: normal visual inspection, full ROM and supple Resp Effort & Inspection: normal respiratory effort and able to speak in complete sentences Cardio Rate: regular rate GI Inspection: Dressings in place are clean, dry, intact. No erythema, no bruising. Palpation: soft and minimally tender, mostly around the right upper quadrant BEN drain. BEN has serosanguineous fluid in it. Neuro General: patient alert, patient oriented x3 and moves all extremities Psych Appearance: grossly normal Objective Last Vital Signs Temp 37.5 C 09/03/24 07:49 Pulse 66 09/03/24 07:49 Resp 18 09/03/24 07:49 BP 136/80 09/03/24 07:49 Pulse Ox 97 09/03/24 07:49 Laboratory Results - last 24 hr 09/02/24 09/03/24 10:54 06:09 WBC 9.91 RBC 4.27 Hgb 11.6 Hct 36.0 MCV 84 MCH 27.2 MCHC 32.2 RDW 14.2 Plt Count 228 MPV 12.2 H Sodium 137 Potassium 3.4 L Chloride 102 Carbon Dioxide 26.3 Anion Gap 8.7 BUN 6 L Creatinine 0.6 Est GFR (CKD-EPI 2020) 119.97 Glucose 105 Calcium 9.3 Total Bilirubin 3.87 H AST 398 H ALT 922 H Alkaline Phosphatase 182 H Total Protein 6.4 Albumin 3.0 L Urine HCG, Qual Negative Time Spent with Patient Time Spent with Patient: 35-49 minutes Time was spent: preparing to see the patient(eg.review tests), obtaining and/or reviewing separately otained hiistory, ordering medications,tests, procedures and counseling the patient
--- NOTE | 2024-09-03 10:59 | PDOC.CMDIS ---
Date of service: 09/03/24 Time of Service: 10:59 LACE Index Scoring Tool Questions: Length of Stay (in days): 3 Was the patient admitted via the E.D.?: Yes E.D. Visits: 1 Answers: Total Score: 7 Risk of Readmission: Low Risk Care Management Discharge Plan Reason for Hospitalization: Acute Cholesytitis Discharge Plan: Discharge home with a plan to follow up with a plan to follow up in the community. No new services are ordered prior to discharge. Transportation SDOH Health Related Social Needs: No Data to Display
--- NOTE | 2024-09-03 12:32 | PDOC.CMPRO ---
Date of service: 09/03/24 Time of Service: 12:32 Care Management Progress Note Progress Note Text Progress Note Text: Abhishek is awake and lying in bed when CM met with her. Abhishek is pleasant and easily engages in conversation, as is her who is sitting at her bedside. She reports increased abdominal pain (near the area of her sutures) and feels she may have over done it by walking in the [place] earlier today. Abhishek shared that she is eager to recover so she can be home with her 3.5 year old and get back to work. 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 In addition, Abhishek has Myasthenia Gravis and a Natural Path that recommends she have enough fat in her diet to support nerve function. A big concern for her at this time is how to eat supportively now that her Gallbladder is gone? CM will check with nutrition to see if they are able to offer any recommendations or print outs? CM will continue to follow. Discharge Potential Discharge Needs: PCP F/U Appt and Surgical F/U Appt Anticipated Barriers to Discharge: Medical Status Patient/Family Education Needs: Review discharge instructions, discuss Ask Me Three Transportation: Private vehicle Plan: Anticipate that Abhishek will discharge home with no new services when medically ready for discharge. Will need a letter to return to work. She will follow up with PCP, and the surgeon,and continue per her discharge plan of care. will provide transportation. CM will continue to follow. Social Determinants of Health Screening Will the Patient Participate in the Screening?: Declined to provide
--- NOTE | 2024-09-03 14:24 | CHAPLAIN ---
I visited briefly with Ele this morning. She was uncomfortable, mostly from gas, she thinks. Her Junaid was with her bringing her some tea. She had surgery yesterday. I didn't stay long as she was not feeling well.
--- NOTE | 2024-09-03 14:51 | PHA.REVIEW2 ---
Pharmacy Admission Review Admission Clinical Review Admission Pharmacy Review: Acute cholecystitis (Acute) Choledocholithiasis (Acute) Cholecystitis (Acute) ciprofloxacin Allergy (Severe, Verified 09/03/24 01:23) Other (See Comment) erythromycin base Allergy (Intermediate, Verified 08/31/24 11:13) Skin Rash latex Allergy (Intermediate, Verified 08/31/24 11:13) Skin Rash penicillin G Allergy (Intermediate, Verified 08/31/24 11:13) Skin Rash Resuscitation Status Full Code Height 5 ft 2 in Weight 91.626 kg Comments Comments/Follow Ups: Watch VS, K+ labs and for med changes (IV to PO once tolerating PO) Pharmacy Admission Review Renal Dosing Renal Dosing: BUN 6 mg/dL (7-18) L 09/03/24 06:09 Creatinine 0.6 mg/dL (0.55-1.02) 09/03/24 06:09 Medications needing adjustments: Reviewed (Crcl ~137 mL/min current meds okay) Anticoagulation Anticoagulation: Hgb 11.6 g/dL (11.2-15.7) 09/03/24 06:09 Hct 36.0 % (36.0-46.0) 09/03/24 06:09 Plt Count 228 10^3/uL (130-400) 09/03/24 06:09 Creatinine 0.6 mg/dL (0.55-1.02) 09/03/24 06:09 DVT Prophylaxis: Reviewed Medications: Enoxaparin Opiate Usage Evaluate Pain Scale/Pains Meds: Reviewed Scheduled Bowel Reg ordered if on Opiates?: No (will mention to provider) Relevant Labs Relevant Labs: Sodium 137 mmol/L (136-145) 09/03/24 06:09 Potassium 3.4 mmol/L (3.5-5.1) L 09/03/24 06:09 Chloride 102 mmol/L (98-107) 09/03/24 06:09 Electrolytes, C-Reactive P, ESR: Reviewed DM Control DM Control: Glucose 105 mg/dL (74-106) 09/03/24 06:09 DM Control: Reviewed (No DM in medical history, previous A1c 5.4 on 06/28/2024) Cardiac Review BP, HR, EF%: Reviewed (BP and HR have been up and down some so far this admission) QTc Review QTc: N/A IV to PO Switch IV Medications: Reviewed Home Meds Home Med List reviewed: Reviewed Relevent Home Meds Not ordered & why?: ursodiol, vitamin B complex Current Meds Current Medication Order Review: Intervened (adjusted PRN med so it crosses to pyxis correctly) Pharmacy Antibiotic Review Pharmacy Antibiotic Activity: Reviewed, no change Comments: zosyn continues (day 4 starts this evening) Comments Comments/Follow Ups: Watch VS, K+ labs and for med changes (IV to PO once tolerating PO)
[2024-09-03] MEDS: Prochlorperazine 10 MG/2 ML VIAL 5 MG IVP ×2 (15:46→21:31)
[2024-09-03] MEDS: LORazepam 2 MG/ML VIAL 1 MG IVP (17:27)
[2024-09-03] MEDS: oxyCODONE 5 MG TAB PO (17:27)
[2024-09-03] MEDS: Enoxaparin 40 MG/0.4 ML SYR SC (18:22)
[2024-09-04] MEDS: LORazepam 2 MG/ML VIAL 1 MG IVP ×3 (02:42→23:54)
[2024-09-04] MEDS: PIPERACILLIN/TAZO 3.375 GM in Normal Saline 50 ML IVPB ×3 (02:43→17:44)
[2024-09-04 05:49] VITALS: BP 137/88; PULSE 60; RESP 18; TEMP 36.9; O2SAT 93
[2024-09-04 06:54] LABS: Abs Immature Grans 0.06 10^3/uL (0.0-0.06); Absolute Basophil Count 0.04 10^3/uL (0.0-0.2); Absolute Eosinophil Count 0.01 10^3/uL (0.0-0.7); Absolute Lymphocyte Count 0.76 10^3/uL (1.2-3.4); Absolute Monocyte Count 0.79 10^3/uL (0.1-0.8); Absolute Neutrophil Count 6.62 10^3/uL (1.2-6.7); Basophils % 0.5 %; Eosinophils % 0.1 %; HCT 34.1 % (36.0-46.0); HGB 11.2 g/dL (11.2-15.7); Immature Grans % 0.7 %; Lymphocytes % 9.2 %; MCH 27.1 pg (27.0-33.0); MCHC 32.8 % (32.0-36.0); MCV 82 fL (80-95); MPV 11.8 fL (8.0-11.0); Monocytes % 9.5 %; Platelet Count 232 10^3/uL (130-400); RBC 4.14 10^6/uL (3.93-5.22); RDW 14.3 % (11.7-14.6); RDW-SD 42.1 fL; WBC 8.28 10^3/uL (4.4-10.8)
[2024-09-04 07:06] LABS: ALT 773 U/L (14-59); AST 275 U/L (15-37); Albumin 2.8 g/dL (3.4-5.0); Alkaline Phosphatase 184 U/L (46-116); Anion Gap 5.2 mmol/L (3-11); BUN 8 mg/dL (7-18); CO2 30.8 mmol/L (21.0-32.0); CREATININE 0.6 mg/dL (0.55-1.02); Calcium 8.7 mg/dL (8.5-10.1); Chloride 103 mmol/L (98-107); Estimated GFR 119.97 (mL/min/1.73m2); Glucose 123 mg/dL (74-106); Potassium 3.2 mmol/L (3.5-5.1); Sodium 139 mmol/L (136-145); Total Protein 6.1 g/dL (6.4-8.2)
[2024-09-04 07:30] VITALS: BP 128/73; PULSE 61; TEMP 36.8; O2SAT 94
[2024-09-04] MEDS: Escitalopram 10 MG TAB PO (08:01)
[2024-09-04] MEDS: Normal Saline Flush 10 ML SYR IVP ×8 (08:02→23:55)
[2024-09-04] MEDS: Ketorolac 15 MG/ML VIAL IVP ×3 (08:24→23:54)
[2024-09-04] MEDS: ACETAMINOPHEN 1,000 MG/100 ML BAG 400 MG IVPB ×3 (08:56→21:14)
[2024-09-04] MEDS: Lactated Ringers 1,000 ML 75 ML IV ×2 (10:20→23:55)
[2024-09-04] MEDS: Simethicone 80 MG CHEW PO ×2 (10:30→21:12)
[2024-09-04] MEDS: Prochlorperazine 10 MG/2 ML VIAL 5 MG IVP ×3 (13:38→21:10)
--- NOTE | 2024-09-04 16:16 | W.PM.PROGNOT ---
Date of Service Date of service: 09/04/24 Time of Service: 04:00 Assessment and Plan Assessment and plan (1) Acute cholecystitis: Status: Acute Assessment and plan: 34 female postop day 2 status post laparoscopic cholecystectomy for acute cholecystitis. Patient seems to have a persistent postop ileus. Despite her complaints of pain at the drain site, and lack of appetite, no other concerning findings or red flags at this time. She is motivated to get home and frustrated that she does not feel better. For now, we will hold the course. May consider imaging in the morning depending on how she does overnight and how her labs look in the morning. -Continue IV fluids -Continue IV antibiotics -Continue to monitor drain output -Continue scheduled Tylenol and as needed pain meds and anxiety meds -Encourage ambulation, encourage p.o. intake -Incentive spirometer and Lovenox for prophylaxis -Labs in a.m. Subjective Subjective Interval history since last seen: Patient reports sleeping some last night with the oxycodone and the ativan. Pain in shoulders and upper back has resolved. Still no appetite and nauseous. No vomiting today. Not interested to eat, only taking small sips. Continues to move around and ambulate in halls. Main complaint is pain at drain site. Voiding but no BM no flatus, plenty of belching. No fevers. CBC and lytes unremarkable. LFTs coming down with t. bili 3.80, AP unchanged, AST and ALT down a few hundred each from yesterday. Exam Narrative Exam Narrative: General?awake, alert, bit sleepy, no apparent distress HEENT?sclera anicteric, mucous membranes a bit dry Respiratory?unlabored, no use of accessory muscles Abdomen?soft, tender to palpation around the drain site quadrant, but otherwise minimally tender, dressings dry and intact, BEN serosanguineous fluid. Extremities?moves all extremities, no gross edema, ambulating independently Psych?grossly intact Objective Last Vital Signs Temp 36.8 C 09/04/24 07:30 Pulse 61 09/04/24 07:30 Resp 18 09/04/24 05:49 BP 128/73 09/04/24 07:30 Pulse Ox 94 09/04/24 07:30 Laboratory Results - last 24 hr 09/04/24 06:25 WBC 8.28 RBC 4.14 Hgb 11.2 Hct 34.1 L MCV 82 MCH 27.1 MCHC 32.8 RDW 14.3 Plt Count 232 MPV 11.8 H Immature Gran % 0.7 Neutrophils % 80.0 Lymphocytes % 9.2 Monocytes % 9.5 Eosinophils % 0.1 Basophils % 0.5 Nucleated RBC % 0.0 Absolute Neutrophils 6.62 Absolute Lymphocytes 0.76 L Absolute Monocytes 0.79 Absolute Eosinophils 0.01 Absolute Basophils 0.04 Sodium 139 Potassium 3.2 L Chloride 103 Carbon Dioxide 30.8 Anion Gap 5.2 BUN 8 Creatinine 0.6 Est GFR (CKD-EPI 2020) 119.97 Glucose 123 H Calcium 8.7 Total Bilirubin 3.80 H AST 275 H ALT 773 H Alkaline Phosphatase 184 H Total Protein 6.1 L Albumin 2.8 L Time Spent with Patient Time Spent with Patient: 25-34 minutes Time was spent: preparing to see the patient(eg.review tests), ordering medications,tests, procedures and counseling the patient
[2024-09-04 16:32] VITALS: BP 147/73; PULSE 79; RESP 20; TEMP 37.6; O2SAT 98
[2024-09-04] MEDS: Enoxaparin 40 MG/0.4 ML SYR SC (17:45)
[2024-09-04 21:00] VITALS: BP 128/65; PULSE 82; RESP 20; TEMP 37.2; O2SAT 99
[2024-09-04] MEDS: HYDROmorphone 2 MG/ML SYR 1 MG IVP (21:10)
[2024-09-04] MEDS: oxyCODONE 5 MG TAB PO (21:12)
[2024-09-05] MEDS: PIPERACILLIN/TAZO 3.375 GM in Normal Saline 50 ML IVPB ×2 (02:33→10:09)
[2024-09-05 03:54] VITALS: BP 119/63; PULSE 59; RESP 18; TEMP 37.3; O2SAT 96
[2024-09-05] MEDS: ACETAMINOPHEN 1,000 MG/100 ML BAG 400 MG IVPB ×2 (03:54→10:09)
[2024-09-05] MEDS: Ketorolac 15 MG/ML VIAL IVP (06:39)
[2024-09-05] MEDS: Normal Saline Flush 10 ML SYR IVP ×3 (06:39→07:59)
[2024-09-05 06:41] LABS: Abs Immature Grans 0.07 10^3/uL (0.0-0.06); Absolute Basophil Count 0.06 10^3/uL (0.0-0.2); Absolute Eosinophil Count 0.11 10^3/uL (0.0-0.7); Absolute Lymphocyte Count 1.24 10^3/uL (1.2-3.4); Absolute Monocyte Count 0.69 10^3/uL (0.1-0.8); Absolute Neutrophil Count 5.29 10^3/uL (1.2-6.7); Basophils % 0.8 %; Eosinophils % 1.5 %; HCT 34.8 % (36.0-46.0); HGB 11.5 g/dL (11.2-15.7); Immature Grans % 0.9 %; Lymphocytes % 16.6 %; MCH 27.3 pg (27.0-33.0); MCV 83 fL (80-95); MPV 11.5 fL (8.0-11.0); Monocytes % 9.2 %; Platelet Count 234 10^3/uL (130-400); RBC 4.22 10^6/uL (3.93-5.22); RDW 14.7 % (11.7-14.6); RDW-SD 43.4 fL; WBC 7.46 10^3/uL (4.4-10.8)
[2024-09-05 07:13] LABS: Albumin 2.6 g/dL (3.4-5.0); BUN 5 mg/dL (7-18); CREATININE 0.7 mg/dL (0.55-1.02); Calcium 8.5 mg/dL (8.5-10.1); Potassium 3.1 mmol/L (3.5-5.1); Sodium 141 mmol/L (136-145); Total Protein 5.9 g/dL (6.4-8.2)
[2024-09-05 07:30] VITALS: BP 129/88; PULSE 69; RESP 15; TEMP 36.8; O2SAT 95
[2024-09-05] MEDS: Escitalopram 10 MG TAB PO (07:58)
[2024-09-05 08:07] LABS: ALT 679 U/L (14-59); AST 302 U/L (15-37); Alkaline Phosphatase 233 U/L (46-116); Bilirubin, Total 3.98 mg/dL (0.2-1.0); Chloride 103 mmol/L (98-107); Glucose 85 mg/dL (74-106)
[2024-09-05 08:21] LABS: Estimated GFR 115.59 (mL/min/1.73m2)
[2024-09-05] MEDS: POTASSIUM CHLORIDE/0.9% NACL 1,000 ML 30 MEQ IV (09:20)
[2024-09-05] MEDS: Lactated Ringers 1,000 ML 75 ML IV (09:40)
[2024-09-05] MEDS: Potassium Chloride Liquid 20 MEQ PKT 40 MEQ PO (10:09)
[2024-09-05] MEDS: Simethicone 80 MG CHEW PO (12:05)
--- NOTE | 2024-09-05 12:25 | PDOC.CMDIS ---
Date of service: 09/05/24 Time of Service: 12:25 LACE Index Scoring Tool Questions: Length of Stay (in days): 4 - 6 Was the patient admitted via the E.D.?: Yes E.D. Visits: 1 Answers: Total Score: 8 Risk of Readmission: Low Risk Care Management Discharge Plan Reason for Hospitalization: Cholecystitis Discharge Plan: Treva will be discharged home with a plan to follow up with the Surgical team after discharge. Return to work date is 09/13/24, per Surgeon, and a return to work letter was provided to patient, prior to discharge. No new services are provided. Pt coordinated her own transportation. Patient/Family Education Needs: Review discharge instructions, limitations, medications and recommended follow up. Discuss ask me three. SDOH Health Related Social Needs: No Data to Display
--- NOTE | 2024-09-21 20:25 | DSE_ITS ---
Date of service: 09/05/24 Time of Service: 12:00 DS: Diagnosis Discharge Diagnosis (1) Acute cholecystitis: Status: Resolved Discharge Plan Disposition Patient Disposition: Home Condition: Fair Discharge Details Reason For Visit: Acute Cholecystitis Admit Date/Time: 08/31/24 13:44 Admit Provider: Chuy Krishnan Attending Provider: Chuy Krishnan Primary Care Provider: Nito Castellanos Hospital Course Hospital Course: Patient is a 34-year-old woman who presented to the emergency room. She was admitted to the general surgery service for acute cholecystitis. See admission H&P for details. She was started on IV antibiotics. She had an ultrasound and MRCP. There was concern for small stones on the distal common bile duct. Preoperative ERCP could not be arranged. On or she went to the operating room and had a laparoscopic cholecystectomy. There was significant amount of inflammation. The gallbladder was removed. Intraoperative cholangiogram was attempted. There was some difficulty obtaining good flow of contrast but the distal common bile duct duct was seen with some small filling defects. Postoperatively the patient struggled initially with a lot of upper back and shoulder pain initially. She also struggled to take an p.o. intake. She had some episodes of retching and vomiting in the first 1 to 2 days. By postop day 2 her only complaint of pain is in the right upper quadrant around the drain site. Unfortunately she still had no appetite. Finally by postop day 3 she began passing flatus and was able to tolerate small amounts of regular food. She did not have any significant fevers throughout. Her vital signs were stable. Her white blood cell count normalized. Unfortunately, her LFTs remain somewhat elevated and her bilirubin has ranged from 3.8-3.9. Given that this has not trended down by postop day 3, I called gastroenterology at [facility]. They agreed that she probably needs to have an ERCP at this point. Fortunately they were able to confirm that there was an outpatient spot tomorrow. When discussed with the patient, she was happy to go home and her will take her down there tomorrow morning for the procedure. He was discharged home on postop day 3 on a regular diet with minimal pain. She did have her BEN drain in place as it continues to put out about 200 cc daily serosanguineous fluid. They were instructed on dressing changes on the BEN drain and how to empty it. They were given information regarding the plan for ERCP tomorrow. She will need to call the general surgery office here at [facility] for follow-up in the next couple of days for drain removal. Home Meds and New Rx's Prescriptions: No Action vit B cmplx #9-FA-vit C-vit E 1-60-5 mg-mg-unit Tablet 1 tab PO DAILY escitalopram oxalate 10 mg tablet 10 mg PO DAILY Patient Comments: TAKE ONE TABLET BY MOUTH DAILY UPON AWAKENING Discharge Instructions Additional Instructions: Activity: No heavy lifting, nothing greater than 10 pounds, for 2 weeks. Diet: Regular diet Dressings: Small incisions can be left open to air. Drain site should be covered with dry gauze and tape and changed once daily. Patient may shower with dressing off and place a fresh dressing after showering. Drain: Empty drain daily or more frequently if needed. Record daily output. Bring this record to her follow-up visit. Follow-up: Patient should follow-up in the general surgery clinic this week. If patient experiences fevers, chills, increasing abdominal pain, persistent nausea and vomiting, then she should present to the emergency room. Patient For ERCP tomorrow 09/06/2024: Patient will get a phone call from the GI Endoscopy scheduling office around 7- 7:30am. The earliest that she would need to be at [facility] would be 9am, but final time will be given when they call in the morning. If she does not hear from them by 7:30am, she should call the main hospital number at [phone] and ask for Endoscopy. The jewelry engraver who set this up is Dr. Yaya Malagon. Stand Alone Forms: Nursing Discharge Form Referrals: Link [facility],Carrol Mason MD [ [facility] STAFF PHYSICIAN] - (Please call the office tomorrow to set up a hospital follow up. ) Activity:: No heavy lifting Equipment/Supplies:: No Equipment Needed Diet:: As Tolerated Discharge Orders Discharge Orders: Discharge Order (Routine); Ordered 09/05/24 Ordered By: Carrol Maza [facility] Discharge Data Discharge Date/Time-TO BE ENTERED AT DEPARTURE: 09/05/24 13:35 DS: Summary Time Spent with Patient providing and/or coordinating discharge services: Greater than 30 minutes Status at Discharge Functional status at discharge: independent ambulation Overall status at discharge: patient is not back to baseline Mental Status: mental status grossly normal Speech and Movement: speech and movement normal Mood: congruent mood Affect: normal affect Quality:SDOH Health Related Social Needs: No Data to Display Exam Psych Mental Status: mental status grossly normal Speech and Movement: speech and movement normal Mood: congruent mood Affect: normal affect DS: Data Vitals/I&O Vitals and I&O: Vital Signs Temperature 36.8 C 09/05/24 07:30 Temperature Source Temporal Artery Scan 09/05/24 07:30 Pulse 69 09/05/24 07:30 Pulse Rhythm Regular 08/31/24 16:15 Pulse 58 L 09/02/24 16:45 Respiratory Rate 15 09/05/24 07:30 Respiratory Effort Normal 08/31/24 16:15 Respiratory Depth Normal 08/31/24 16:15 Respiratory Pattern Normal 08/31/24 16:15 Blood Pressure 129/88 09/05/24 07:30 Blood Pressure Mean 97 09/02/24 16:45 Pulse Oximetry 95 09/05/24 07:30 Respiratory End-tidal CO2 36 09/02/24 16:45 Oxygen Delivery Method Room Air 09/05/24 07:30 Oxygen Flow Rate 0 09/05/24 07:30 Pain Level 0 09/05/24 07:30 Comment Vitals taken by mistake. RN notified. 09/03/24 19:49 PFSH All Active Problems (Updated 09/06/24 @ 00:03 by SONIYA TIRADO) Choledocholithiasis (Acute) Myasthenia gravis (Chronic) Breast pain, right (Acute) Contact dermatitis (Acute) Left otitis externa (Acute) Yeast dermatitis (Acute) Cholelithiasis (Acute) Cholelithiasis (Acute) RUQ pain (Acute) Sleep disturbance (Acute) Elevated glucose tolerance test (Acute) TMJ syndrome (Chronic) Oropharyngeal dysphagia (Chronic) ADHD (attention deficit hyperactivity disorder) (Chronic) Reports she is doing well without medication in her college courses. Medical History (Updated 09/06/24 @ 00:03 by SONIYA TIRADO) (spontaneous vaginal delivery) 03/02/2021. Kahlil Palomo. Gestational diabetes mellitus (GDM) Encounter for repeat Papanicolaou smear of cervix due to previous unsatisfactory results Unsat pap 1/8/21 - discussed with patient. Will repeat PP. 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 Date GA/Weeks # Preg Succ Route Wgt Sex Labor Lgth Anesth esia Location [facility] 03/02/21 40 No vaginal 3143.962 g Female Renetta Kyle Delivery Date: 03/02/21 Last Updated by: Ivy Kyle M.D. IOL for GDM. Insulin requiring. Stacia. Transient PP BP elevation. No Rx needed. Time Spent with Patient Time Spent with Patient: <45 minutes Time was spent: preparing to see the patient(eg.review tests), ordering medications,tests, procedures, referring, communicating with other health manager critical care, counseling the patient and care coordination
--- NOTE | 2024-09-21 20:28 | DSE_ITS ---
Date of service: 09/05/24 Time of Service: 12:00 DS: Diagnosis Discharge Diagnosis (1) Acute cholecystitis: Status: Resolved Discharge Plan Disposition Patient Disposition: Home Condition: Fair Discharge Details Reason For Visit: Acute Cholecystitis Admit Date/Time: 08/31/24 13:44 Admit Provider: Chuy Krishnan Attending Provider: Chuy Krishnan Primary Care Provider: Nito Castellanos Hospital Course Hospital Course: Patient is a 34-year-old woman who presented to the emergency room. She was admitted to the general surgery service for acute cholecystitis. See admission H&P for details. She was started on IV antibiotics. She had an ultrasound and MRCP. There was concern for small stones on the distal common bile duct. Preoperative ERCP could not be arranged. On or she went to the operating room and had a laparoscopic cholecystectomy. There was significant amount of inflammation. The gallbladder was removed. Intraoperative cholangiogram was attempted. There was some difficulty obtaining good flow of contrast but the distal common bile duct duct was seen with some small filling defects. Postoperatively the patient struggled initially with a lot of upper back and shoulder pain initially. She also struggled to take an p.o. intake. She had some episodes of retching and vomiting in the first 1 to 2 days. By postop day 2 her only complaint of pain is in the right upper quadrant around the drain site. Unfortunately she still had no appetite. Finally by postop day 3 she began passing flatus and was able to tolerate small amounts of regular food. She did not have any significant fevers throughout. Her vital signs were stable. Her white blood cell count normalized. Unfortunately, her LFTs remain somewhat elevated and her bilirubin has ranged from 3.8-3.9. Given that this has not trended down by postop day 3, I called gastroenterology at [facility]. They agreed that she probably needs to have an ERCP at this point. Fortunately they were able to confirm that there was an outpatient spot tomorrow. When discussed with the patient, she was happy to go home and her will take her down there tomorrow morning for the procedure. He was discharged home on postop day 3 on a regular diet with minimal pain. She did have her BEN drain in place as it continues to put out about 200 cc daily serosanguineous fluid. They were instructed on dressing changes on the BEN drain and how to empty it. They were given information regarding the plan for ERCP tomorrow. She will need to call the general surgery office here at [facility] for follow-up in the next couple of days for drain removal. Home Meds and New Rx's Prescriptions: No Action vit B cmplx #9-FA-vit C-vit E 1-60-5 mg-mg-unit Tablet 1 tab PO DAILY escitalopram oxalate 10 mg tablet 10 mg PO DAILY Patient Comments: TAKE ONE TABLET BY MOUTH DAILY UPON AWAKENING Discharge Instructions Additional Instructions: Activity: No heavy lifting, nothing greater than 10 pounds, for 2 weeks. Diet: Regular diet Dressings: Small incisions can be left open to air. Drain site should be covered with dry gauze and tape and changed once daily. Patient may shower with dressing off and place a fresh dressing after showering. Drain: Empty drain daily or more frequently if needed. Record daily output. Bring this record to her follow-up visit. Follow-up: Patient should follow-up in the general surgery clinic this week. If patient experiences fevers, chills, increasing abdominal pain, persistent nausea and vomiting, then she should present to the emergency room. Patient For ERCP tomorrow 09/06/2024: Patient will get a phone call from the GI Endoscopy scheduling office around 7- 7:30am. The earliest that she would need to be at [facility] would be 9am, but final time will be given when they call in the morning. If she does not hear from them by 7:30am, she should call the main hospital number at [phone] and ask for Endoscopy. The collections technician who set this up is Dr. Yaya Malagon. Stand Alone Forms: Nursing Discharge Form Referrals: Link [facility],Carrol Mason MD [ [facility] STAFF PHYSICIAN] - (Please call the office tomorrow to set up a hospital follow up. ) Activity:: No heavy lifting Equipment/Supplies:: No Equipment Needed Diet:: As Tolerated Discharge Orders Discharge Orders: Discharge Order (Routine); Ordered 09/05/24 Ordered By: Carrol Maza [facility] Discharge Data Discharge Date/Time-TO BE ENTERED AT DEPARTURE: 09/05/24 13:35 DS: Summary Time Spent with Patient providing and/or coordinating discharge services: Greater than 30 minutes Status at Discharge Functional status at discharge: independent ambulation Overall status at discharge: patient is not back to baseline Mental Status: mental status grossly normal Speech and Movement: speech and movement normal Mood: congruent mood Affect: normal affect Quality:SDOH Health Related Social Needs: No Data to Display Exam Psych Mental Status: mental status grossly normal Speech and Movement: speech and movement normal Mood: congruent mood Affect: normal affect DS: Data Vitals/I&O Vitals and I&O: Vital Signs Temperature 36.8 C 09/05/24 07:30 Temperature Source Temporal Artery Scan 09/05/24 07:30 Pulse 69 09/05/24 07:30 Pulse Rhythm Regular 08/31/24 16:15 Pulse 58 L 09/02/24 16:45 Respiratory Rate 15 09/05/24 07:30 Respiratory Effort Normal 08/31/24 16:15 Respiratory Depth Normal 08/31/24 16:15 Respiratory Pattern Normal 08/31/24 16:15 Blood Pressure 129/88 09/05/24 07:30 Blood Pressure Mean 97 09/02/24 16:45 Pulse Oximetry 95 09/05/24 07:30 Respiratory End-tidal CO2 36 09/02/24 16:45 Oxygen Delivery Method Room Air 09/05/24 07:30 Oxygen Flow Rate 0 09/05/24 07:30 Pain Level 0 09/05/24 07:30 Comment Vitals taken by mistake. RN notified. 09/03/24 19:49 PFSH All Active Problems (Updated 09/06/24 @ 00:03 by SONIYA TIRADO) Choledocholithiasis (Acute) Myasthenia gravis (Chronic) Breast pain, right (Acute) Contact dermatitis (Acute) Left otitis externa (Acute) Yeast dermatitis (Acute) Cholelithiasis (Acute) Cholelithiasis (Acute) RUQ pain (Acute) Sleep disturbance (Acute) Elevated glucose tolerance test (Acute) TMJ syndrome (Chronic) Oropharyngeal dysphagia (Chronic) ADHD (attention deficit hyperactivity disorder) (Chronic) Reports she is doing well without medication in her college courses. Medical History (Updated 09/06/24 @ 00:03 by SONIYA TIRADO) (spontaneous vaginal delivery) 03/02/2021. Kahlil Palomo. Gestational diabetes mellitus (GDM) Encounter for repeat Papanicolaou smear of cervix due to previous unsatisfactory results Unsat pap 1/8/21 - discussed with patient. Will repeat PP. 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 Date GA/Weeks # Preg Succ Route Wgt Sex Labor Lgth Anesth esia Location [facility] 03/02/21 40 No vaginal 3143.962 g Female Renetta Kyle Delivery Date: 03/02/21 Last Updated by: Ivy Kyle M.D. IOL for GDM. Insulin requiring. Stacia. Transient PP BP elevation. No Rx needed. Time Spent with Patient Time Spent with Patient: <45 minutes Time was spent: preparing to see the patient(eg.review tests), ordering medications,tests, procedures, referring, communicating with other health wound care nurse and care coordination
== END 2024-09-05 13:35 | disposition home or self-care (01) ==
LOC: ER 15:21 → MS 16:23
PROVIDERS: Nurse Anesthetist, Certified Registered; Surgery; Admitting Provider Surgery; Emergency Provider Physician Assistant; PCP Naturopath; Visit Provider Surgery
PROC: 0FT44ZZ Resection of Gallbladder, Percutaneous Endoscopic Approach (ICD-10-PCS; CPT 47563; principal; 2024-09-02 12:00)
DX: K80.10 Calculus of gallbladder with chronic cholecystitis without obstruction (principal); E55.9 Vitamin D deficiency, unspecified; R13.12 Dysphagia, oropharyngeal phase; F90.9 Attention-deficit hyperactivity disorder, unspecified type; R73.09 Other abnormal glucose; G70.00 Myasthenia gravis without (acute) exacerbation
CPT/HCPCS: 47563; 36415; 76000; 80048; 80053; 80076; 81025; 83690; 85027; 96365; 96366; 96367; 96372; 96375; 96376; 99285; J1650; 74181; 74300; 76705; 81003; 85025; 88304; G0378; J0131; J0780; J1100; J1171; J1596; J1885; J2003; J2060; J2250; J2405; J2469; J2543; J2704; J2765; J3010; Q9967

== ENCOUNTER 2024-09-01 00:25 | Outpatient (CLI) | payer BC, OTHER, SELFPAY | END 2024-09-01 00:45 | LOC: DI 00:25 | PROVIDERS: PCP Naturopath; Visit Provider Naturopath | DX: K80.00 Calculus of gallbladder with acute cholecystitis without obstruction (principal) ==

== ENCOUNTER 2024-12-10 00:31 | Outpatient (RCR) | payer BC, SELFPAY ==
[2024-12-06 07:30] VITALS: BP 126/91; PULSE 103; RESP 22; TEMP 36.7; O2SAT 96
[2024-12-06] MEDS: Acetaminophen 325 MG TAB 650 MG PO (07:39)
[2024-12-06] MEDS: Normal Saline Flush 10 ML SYR IVP (07:40)
[2024-12-06] MEDS: diphenhydrAMINE 25 MG CAP PO (07:40)
[2024-12-06] MEDS: IMMUNE GLOBULIN 5 GM/50 ML BTL IVPB (07:50)
[2024-12-06 08:03] LABS: HCT 43.5 % (36.0-46.0); HGB 14.2 g/dL (11.2-15.7); MCH 26.2 pg (27.0-33.0); MCHC 32.6 % (32.0-36.0); MCV 80 fL (80-95); MPV 11.3 fL (8.0-11.0); Platelet Count 261 10^3/uL (130-400); RBC 5.42 10^6/uL (3.93-5.22); RDW 16.4 % (11.7-14.6); RDW-SD 47.5 fL; WBC 9.27 10^3/uL (4.4-10.8)
[2024-12-06 08:10] VITALS: BP 130/94; PULSE 106; RESP 20; TEMP 36.7; O2SAT 100
[2024-12-06 08:13] LABS: BUN 13 mg/dL (7-18); CREATININE 0.8 mg/dL (0.55-1.02); Estimated GFR 98.48 (mL/min/1.73m2)
[2024-12-06] MEDS: IMMUNE GLOBULIN 10 GM/100 ML BTL IVPB (08:21)
[2024-12-06 08:26] VITALS: BP 132/87; PULSE 85; RESP 20; TEMP 36.8; O2SAT 95
[2024-12-06 08:55] VITALS: BP 113/77; PULSE 76; RESP 20; TEMP 36.6; O2SAT 97
[2024-12-06] MEDS: IMMUNE GLOBULIN 20 GM/200 ML BTL IVPB (09:00)
[2024-12-06 09:30] VITALS: BP 120/80; PULSE 74; RESP 20; TEMP 36.8; O2SAT 93
[2024-12-06 09:50] VITALS: BP 126/90; PULSE 89; RESP 20; TEMP 36.5; O2SAT 96
[2024-12-07 07:32] VITALS: BP 122/88; PULSE 103; RESP 22; TEMP 36.5; O2SAT 100
[2024-12-07] MEDS: diphenhydrAMINE 25 MG CAP PO (07:36)
[2024-12-07] MEDS: Normal Saline Flush 10 ML SYR IVP (07:36)
[2024-12-07] MEDS: Acetaminophen 325 MG TAB 650 MG PO (07:36)
[2024-12-07] MEDS: IMMUNE GLOBULIN 5 GM/50 ML BTL IVPB (07:38)
[2024-12-07 08:01] VITALS: BP 124/88; PULSE 100; RESP 20; TEMP 36.4; O2SAT 99
[2024-12-07] MEDS: IMMUNE GLOBULIN 10 GM/100 ML BTL IVPB (08:09)
[2024-12-07 08:21] VITALS: BP 134/92; PULSE 98; RESP 20; TEMP 36.7; O2SAT 97
[2024-12-07] MEDS: IMMUNE GLOBULIN 20 GM/200 ML BTL IVPB (08:50)
[2024-12-07 08:58] VITALS: BP 130/85; PULSE 90; RESP 20; TEMP 36.7; O2SAT 100
[2024-12-07 09:29] VITALS: BP 122/85; PULSE 83; RESP 20; TEMP 36.6; O2SAT 98
[2024-12-08 07:36] VITALS: BP 123/88; PULSE 92; RESP 20; TEMP 36.1; O2SAT 95
[2024-12-08] MEDS: Normal Saline Flush 10 ML SYR IVP (07:38)
[2024-12-08] MEDS: Acetaminophen 325 MG TAB 650 MG PO (07:38)
[2024-12-08] MEDS: diphenhydrAMINE 25 MG CAP PO (07:38)
[2024-12-08] MEDS: IMMUNE GLOBULIN 5 GM/50 ML BTL IVPB (07:39)
[2024-12-08 08:00] VITALS: BP 126/92; PULSE 76; RESP 20; TEMP 36.5; O2SAT 96
[2024-12-08] MEDS: IMMUNE GLOBULIN 10 GM/100 ML BTL IVPB (08:11)
[2024-12-08 08:14] VITALS: BP 126/88; PULSE 75; RESP 22; TEMP 36.4; O2SAT 99
[2024-12-08] MEDS: IMMUNE GLOBULIN 20 GM/200 ML BTL IVPB (08:48)
[2024-12-08 08:50] VITALS: BP 129/86; PULSE 65; RESP 20; TEMP 36.5; O2SAT 97
[2024-12-08 09:18] VITALS: BP 126/89; PULSE 79; RESP 22; TEMP 36.5; O2SAT 97
[2024-12-09 07:37] VITALS: BP 135/91; PULSE 82; RESP 20; TEMP 36.5; O2SAT 99
[2024-12-09] MEDS: Normal Saline Flush 10 ML SYR IVP (07:39)
[2024-12-09] MEDS: IMMUNE GLOBULIN 5 GM/50 ML BTL IVPB (07:39)
[2024-12-09] MEDS: diphenhydrAMINE 25 MG CAP PO (07:39)
[2024-12-09] MEDS: Acetaminophen 325 MG TAB 650 MG PO (07:40)
[2024-12-09 08:20] VITALS: BP 134/82; PULSE 70; RESP 22; TEMP 36.4; O2SAT 96
[2024-12-09] MEDS: IMMUNE GLOBULIN 10 GM/100 ML BTL IVPB (08:20)
[2024-12-09 08:35] VITALS: BP 140/99; PULSE 70; RESP 22; TEMP 36.4; O2SAT 96
[2024-12-09] MEDS: IMMUNE GLOBULIN 20 GM/200 ML BTL IVPB (08:54)
[2024-12-09 09:05] VITALS: BP 142/83; PULSE 64; RESP 22; TEMP 37; O2SAT 97
[2024-12-09 09:35] VITALS: BP 145/100; PULSE 90; RESP 22; TEMP 36.7; O2SAT 93
[2024-12-10 07:40] VITALS: BP 140/93; PULSE 84; RESP 22; TEMP 36.5; O2SAT 96
[2024-12-10] MEDS: IMMUNE GLOBULIN 5 GM/50 ML BTL IVPB (07:41)
[2024-12-10] MEDS: diphenhydrAMINE 25 MG CAP PO (07:47)
[2024-12-10] MEDS: Normal Saline Flush 10 ML SYR IVP (07:47)
[2024-12-10] MEDS: Acetaminophen 325 MG TAB 650 MG PO (07:47)
[2024-12-10 08:12] VITALS: BP 129/98; PULSE 64; RESP 22; TEMP 36.5; O2SAT 96
[2024-12-10] MEDS: IMMUNE GLOBULIN 10 GM/100 ML BTL IVPB (08:15)
[2024-12-10 08:27] VITALS: BP 140/99; PULSE 61; RESP 20; TEMP 36.5; O2SAT 100
[2024-12-10] MEDS: IMMUNE GLOBULIN 20 GM/200 ML BTL IVPB (08:52)
[2024-12-10 08:57] VITALS: BP 137/98; PULSE 78; RESP 20; TEMP 36.5; O2SAT 100
[2024-12-10 09:27] VITALS: BP 125/81; PULSE 82; RESP 20; TEMP 36.4; O2SAT 96
== END 2024-12-25 23:59 | disposition home or self-care (01) ==
LOC: INF 00:31
PROVIDERS: Nurse Practitioner; PCP Naturopath; Visit Provider Nurse Practitioner Family
DX: G70.00 Myasthenia gravis without (acute) exacerbation (principal)
CPT/HCPCS: 36415; 84520; 85027; 96365; 96366; 82565; J1561

== ENCOUNTER 2025-01-25 02:42 | Outpatient (CLI) | payer BC, OTHER, SELFPAY ==
--- NOTE | 2025-01-25 07:00 | DI.US_ITS ---
Exam(s) US BREAST RT LIMITED MG MAMMO DIAGNOSTIC BI EXAM: MG MAMMO DIAGNOSTIC BI CLINICAL HISTORY: sharp episodic R breast pain,nl CBEN64.4. COMPARISON: MG MG MAMMO SCREENING from 08/14/2022 US US BREAST RT LIMITED from 01/25/2025 TECHNIQUE: Craniocaudal and mediolateral oblique Full Field Digital Mammography views of both breasts with Computer Aided Diagnosis followed by Tomosynthesis and right breast ultrasound. FINDINGS: Mammography/Tomosynthesis: Masses: None seen. Architectural Distortion: None seen. Microcalcifications: No suspicious pleomorphic-type are seen. Skin Thickening/Nipple Retraction: None. Right breast US: Echotexture: Normal appearance of the glandular tissue. Shadowing: No suspicious foci. Cyst: None. Solid lesions: None seen. Ductal dilation: None. IMPRESSION: 1. No evidence of malignancy is noted. 2. Unless there is more urgent need, follow-up screening mammography is recommended, as per [employer] guidelines. BI-RADS Category 1 - Negative Breast Density - Category B - There are scattered areas of fibroglandular density. Breast density Category C or D implies that the patient has dense breast tissue. Dense breast tissue can make it harder to find cancer on a mammogram. Dense breast tissue is also associated with an increased risk of breast cancer. This information about the result of the mammogram report was provided to the patient to raise their awareness. Use this report when you speak with the patient about their risks for breast cancer, which includes their family history. At that time, you may recommend additional screening tests (Ultrasound or MRI) as these tests may add significant information. A negative radiographic report should not delay biopsy if a dominant or clinically suspicious mass is present. Up to ten percent of cancers are not identified on mammography. A negative report may reinforce clinical impression. Adenosis and dense breasts may obscure an underlying neoplasm. False positive reports average 6 to 10%. Patient will receive a letter notifying them of these results.
== END 2025-01-25 03:02 ==
PROVIDERS: PCP Naturopath; Visit Provider Obstetrics & Gynecology Gynecology
DX: N64.4 Mastodynia (principal); Z12.31 Encounter for screening mammogram for malignant neoplasm of breast
CPT/HCPCS: 76642; 77062; 77066; G0279

== ENCOUNTER 2025-02-24 02:18 | Outpatient (RCR) | payer BC, SELFPAY ==
[2025-02-21 07:55] VITALS: BP 121/71; PULSE 85; RESP 22; TEMP 36.6; O2SAT 95
[2025-02-21] MEDS: Acetaminophen 325 MG TAB 650 MG PO (08:01)
[2025-02-21] MEDS: diphenhydrAMINE 25 MG CAP PO (08:02)
[2025-02-21 08:11] LABS: HCT 37.2 % (36.0-46.0); HGB 12.1 g/dL (11.2-15.7); MCH 26.5 pg (27.0-33.0); MCHC 32.5 % (32.0-36.0); MCV 81 fL (80-95); MPV 11.7 fL (8.0-11.0); Platelet Count 291 10^3/uL (130-400); RBC 4.57 10^6/uL (3.93-5.22); RDW 14.6 % (11.7-14.6); RDW-SD 43.0 fL; WBC 7.77 10^3/uL (4.4-10.8)
[2025-02-21] MEDS: IMMUNE GLOBULIN 5 GM/50 ML BTL 4 GM IVPB (08:16)
[2025-02-21 08:20] VITALS: BP 126/83; PULSE 72; RESP 22; TEMP 36.7; O2SAT 96
[2025-02-21 08:26] LABS: BUN 12 mg/dL (7-18); Estimated GFR 115.59 (mL/min/1.73m2)
[2025-02-21 08:40] VITALS: BP 124/78; PULSE 70; RESP 20; TEMP 36.7; O2SAT 97
[2025-02-21] MEDS: IMMUNE GLOBULIN 10 GM/100 ML BTL 4 GM IVPB (08:44)
[2025-02-21 09:00] VITALS: BP 121/83; PULSE 72; RESP 20; TEMP 36.7; O2SAT 96
[2025-02-21] MEDS: IMMUNE GLOBULIN 20 GM/200 ML BTL 4 GM IVPB (09:23)
[2025-02-21 09:45] VITALS: BP 139/91; PULSE 78; RESP 20; TEMP 36.7; O2SAT 98
[2025-02-21 10:15] VITALS: BP 128/78; PULSE 76; RESP 20; TEMP 36.8; O2SAT 97
[2025-02-21] MEDS: Normal Saline Flush 10 ML SYR IVP (10:48)
[2025-02-22 07:43] VITALS: BP 114/81; PULSE 80; RESP 18; TEMP 36.3; O2SAT 98
[2025-02-22] MEDS: diphenhydrAMINE 25 MG CAP PO (07:45)
[2025-02-22] MEDS: IMMUNE GLOBULIN 5 GM/50 ML BTL IVPB (07:46)
[2025-02-22] MEDS: Acetaminophen 325 MG TAB 650 MG PO (07:46)
[2025-02-22] MEDS: Normal Saline Flush 10 ML SYR IVP (07:47)
[2025-02-22] MEDS: IMMUNE GLOBULIN 10 GM/100 ML BTL IVPB (08:26)
[2025-02-22 08:40] VITALS: BP 121/86; PULSE 72; RESP 20; TEMP 36.4; O2SAT 97
[2025-02-22 08:55] VITALS: BP 127/92; PULSE 69; RESP 18; TEMP 36.3; O2SAT 96
[2025-02-22] MEDS: IMMUNE GLOBULIN 20 GM/200 ML BTL IVPB (09:04)
[2025-02-22 09:25] VITALS: BP 138/82; PULSE 77; RESP 20; TEMP 36.4; O2SAT 97
[2025-02-23 07:48] VITALS: BP 117/82; PULSE 77; RESP 20; TEMP 36.6; O2SAT 97
[2025-02-23] MEDS: diphenhydrAMINE 25 MG CAP PO (07:53)
[2025-02-23] MEDS: Acetaminophen 325 MG TAB 650 MG PO (07:53)
[2025-02-23] MEDS: Normal Saline Flush 10 ML SYR IVP (07:54)
[2025-02-23] MEDS: IMMUNE GLOBULIN 5 GM/50 ML BTL IVPB (07:54)
[2025-02-23 08:27] VITALS: BP 131/85; PULSE 80; RESP 20; TEMP 36; O2SAT 97
[2025-02-23] MEDS: IMMUNE GLOBULIN 10 GM/100 ML BTL IVPB (08:27)
[2025-02-23 08:44] VITALS: BP 138/77; PULSE 69; RESP 20; TEMP 36.2; O2SAT 98
[2025-02-23] MEDS: IMMUNE GLOBULIN 20 GM/200 ML BTL IVPB (09:05)
[2025-02-23 09:15] VITALS: BP 128/84; PULSE 61; RESP 18; TEMP 36.4; O2SAT 96
[2025-02-23 09:45] VITALS: BP 139/89; PULSE 67; RESP 20; TEMP 36.3; O2SAT 99
[2025-02-24 07:36] VITALS: BP 122/90; PULSE 89; RESP 20; TEMP 36.4; O2SAT 93
[2025-02-24] MEDS: IMMUNE GLOBULIN 5 GM/50 ML BTL IVPB (08:01)
[2025-02-24] MEDS: Normal Saline Flush 10 ML SYR IVP (08:02)
[2025-02-24] MEDS: diphenhydrAMINE 25 MG CAP PO (08:09)
[2025-02-24] MEDS: Acetaminophen 325 MG TAB 650 MG PO (08:09)
[2025-02-24 08:24] VITALS: BP 133/89; PULSE 85; RESP 20; TEMP 36.4; O2SAT 95
[2025-02-24] MEDS: IMMUNE GLOBULIN 10 GM/100 ML BTL IVPB (08:32)
[2025-02-24 08:40] VITALS: BP 123/87; PULSE 80; RESP 20; TEMP 36.4; O2SAT 92
[2025-02-24 09:15] VITALS: BP 118/83; PULSE 59; RESP 18; TEMP 36.4; O2SAT 97
[2025-02-24] MEDS: IMMUNE GLOBULIN 20 GM/200 ML BTL 4 GM IVPB (09:18)
[2025-02-24 09:47] VITALS: BP 121/80; PULSE 60; RESP 18; TEMP 36.4; O2SAT 96
== END 2025-02-24 23:59 | disposition home or self-care (01) ==
LOC: INF 02:18
PROVIDERS: Nurse Practitioner; PCP Naturopath; Visit Provider Hospitalist
DX: G70.00 Myasthenia gravis without (acute) exacerbation (principal)
CPT/HCPCS: 36415; 84520; 85027; 96365; 96366; 82565; J1561

== ENCOUNTER 2025-02-25 01:48 | Outpatient (RCR) | payer BC, SELFPAY ==
[2025-02-25 08:09] VITALS: BP 119/85; PULSE 69; RESP 20; TEMP 36.2; O2SAT 99
[2025-02-25] MEDS: Normal Saline Flush 10 ML SYR IVP (08:12)
[2025-02-25] MEDS: IMMUNE GLOBULIN 5 GM/50 ML BTL IVPB (08:12)
[2025-02-25] MEDS: Acetaminophen 325 MG TAB 650 MG PO (08:12)
[2025-02-25] MEDS: diphenhydrAMINE 25 MG CAP PO (08:12)
[2025-02-25 08:35] VITALS: BP 115/79; PULSE 73; RESP 20; TEMP 36.1; O2SAT 99
[2025-02-25] MEDS: IMMUNE GLOBULIN 10 GM/100 ML BTL IVPB (08:42)
[2025-02-25 08:50] VITALS: BP 127/85; PULSE 66; RESP 19; TEMP 36.1; O2SAT 97
[2025-02-25 09:20] VITALS: BP 125/80; PULSE 74; RESP 20; TEMP 36.3; O2SAT 98
[2025-02-25] MEDS: IMMUNE GLOBULIN 20 GM/200 ML BTL IVPB (09:29)
[2025-02-25 09:54] VITALS: BP 128/87; PULSE 68; RESP 18; TEMP 36.4; O2SAT 98
== END 2025-02-25 13:16 ==
LOC: INF 01:48
PROVIDERS: PCP Naturopath; Visit Provider Hospitalist
DX: G70.00 Myasthenia gravis without (acute) exacerbation (principal)
CPT/HCPCS: 96365; 96366; J1561

== ENCOUNTER 2025-03-31 02:53 | Outpatient (CLI) | payer BC, SELFPAY ==
[2025-03-31 08:09] VITALS: BP 114/77; PULSE 68; RESP 18; TEMP 36.5; O2SAT 100
[2025-03-31] MEDS: diphenhydrAMINE 25 MG CAP PO (08:12)
[2025-03-31] MEDS: Acetaminophen 325 MG TAB 650 MG PO (08:12)
[2025-03-31] MEDS: Normal Saline Flush 10 ML SYR IVP (08:12)
[2025-03-31] MEDS: IMMUNE GLOBULIN 5 GM/50 ML BTL IVPB (08:13)
[2025-03-31 08:37] LABS: HCT 40.0 % (36.0-46.0); HGB 13.0 g/dL (11.2-15.7); MCH 26.7 pg (27.0-33.0); MCHC 32.5 % (32.0-36.0); MCV 82 fL (80-95); MPV 11.6 fL (8.0-11.0); Platelet Count 293 10^3/uL (130-400); RBC 4.87 10^6/uL (3.93-5.22); RDW 13.9 % (11.7-14.6); RDW-SD 41.0 fL; WBC 6.28 10^3/uL (4.4-10.8)
[2025-03-31] MEDS: IMMUNE GLOBULIN 40 GM/400 ML BTL IVPB ×2 (08:49→10:16)
[2025-03-31 08:50] VITALS: BP 116/83; PULSE 82; RESP 18; TEMP 36.2; O2SAT 95
[2025-03-31 08:52] LABS: BUN 14 mg/dL (7-18); Estimated GFR 119.97 (mL/min/1.73m2)
[2025-03-31 09:20] VITALS: BP 127/86; PULSE 65; RESP 18; TEMP 36.4; O2SAT 95
[2025-03-31 09:50] VITALS: BP 123/78; PULSE 71; RESP 19; TEMP 36.1; O2SAT 95
[2025-03-31 10:15] VITALS: BP 117/75; PULSE 62; RESP 19; TEMP 36.2; O2SAT 96
== END 2025-03-31 02:54 | disposition home or self-care (01) ==
PROVIDERS: Hospitalist; PCP Naturopath; Visit Provider Psychiatry & Neurology Neurocritical Care
DX: G70.00 Myasthenia gravis without (acute) exacerbation (principal)
CPT/HCPCS: 36415; 84520; 85027; 96365; 96366; 82565; J1561

== ENCOUNTER 2025-04-05 16:30 | Outpatient (REF) | payer BC, SELFPAY ==
--- NOTE | 2025-04-05 16:30 | PAPFT_PTH ---
PATIENT: Ele Kimble LOC: [facility] U#:[id number] AGE/SX: 34/F ROOM: RE04/05/[address]: Nito Castellanos : 1990 BED: DIS: 04/05/2025 SPEC #: [id number] RECD: 04/08/25 18:13 STATUS: CARLEE REYolie #: [id number] CIERRA: 04/05/25 16:[address]: Nito Castellanos DEPT: [facility] Cytology RECD BY: Jenny Dale Tissues: 1 - CX/ENDOCX FOR PAP SMEARS Procedures: PAP THIN PREP/UVM Screening HPV DNA PROBE Comments: [id number] (HPV 16 & 18/45) (CHLAMYDIA/GC)
[2025-04-11 11:19] LABS: Chlamydia Result Negative (Negative); GC Result Negative (Negative)
== END 2025-04-05 16:31 | disposition home or self-care (01) ==
LOC: LBN 16:30
PROVIDERS: PCP Naturopath; Visit Provider Naturopath
DX: Z12.4 Encounter for screening for malignant neoplasm of cervix (principal)
CPT/HCPCS: 87491; 87591; 88142; 87624

== ENCOUNTER 2025-05-18 01:57 | Outpatient (CLI) | payer BC, SELFPAY ==
[2025-05-18] VITALS (8 sets, daily range): BP systolic 114–126; BP diastolic 77–94; PULSE 74–103; RESP 17; TEMP 36.1–37; O2SAT 95–100
[2025-05-18] MEDS: diphenhydrAMINE 25 MG CAP PO (08:00)
[2025-05-18] MEDS: Acetaminophen 325 MG TAB 650 MG PO (08:00)
[2025-05-18] MEDS: Normal Saline Flush 10 ML SYR IVP (08:05)
[2025-05-18 08:43] LABS: HCT 40.5 % (36.0-46.0); HGB 13.4 g/dL (11.2-15.7); MCH 26.8 pg (27.0-33.0); MCHC 33.1 % (32.0-36.0); MCV 81 fL (80-95); MPV 12.2 fL (8.0-11.0); Platelet Count 318 10^3/uL (130-400); RBC 5.00 10^6/uL (3.93-5.22); RDW 15.6 % (11.7-14.6); RDW-SD 45.7 fL; WBC 6.58 10^3/uL (4.4-10.8)
[2025-05-18] MEDS: IMMUNE GLOBULIN 5 GM/50 ML BTL IVPB (08:44)
[2025-05-18 08:54] LABS: BUN 11 mg/dL (7-18); Estimated GFR 119.97 (mL/min/1.73m2)
[2025-05-18] MEDS: IMMUNE GLOBULIN 40 GM/400 ML BTL IVPB ×2 (09:20→11:00)
== END 2025-05-18 01:58 | disposition home or self-care (01) ==
PROVIDERS: Psychiatry & Neurology Neurocritical Care; PCP Naturopath; Visit Provider Nurse Practitioner Family
DX: G70.01 Myasthenia gravis with (acute) exacerbation (principal)
CPT/HCPCS: 36415; 84520; 85027; 96365; 96366; 82565; J1561

== ENCOUNTER 2025-06-01 03:44 | Outpatient (CLI) | payer BC, SELFPAY ==
[2025-06-01] VITALS (9 sets, daily range): BP systolic 114–125; BP diastolic 68–91; PULSE 71–106; RESP 17–18; TEMP 35–36.5; O2SAT 94–96
[2025-06-01] MEDS: Acetaminophen 325 MG TAB 650 MG PO (08:00)
[2025-06-01] MEDS: Normal Saline Flush 10 ML SYR IVP (08:01)
[2025-06-01] MEDS: IMMUNE GLOBULIN 5 GM/50 ML BTL IVPB (08:19)
[2025-06-01] MEDS: IMMUNE GLOBULIN 80 GM/800 ML BTL IVPB ×4 (08:52→11:28)
== END 2025-06-01 03:45 | disposition home or self-care (01) ==
LOC: INF 03:45
PROVIDERS: PCP Naturopath; Visit Provider Nurse Practitioner Family
DX: G70.01 Myasthenia gravis with (acute) exacerbation (principal)
CPT/HCPCS: 96365; 96366; J1561

== ENCOUNTER 2025-06-16 00:49 | Outpatient (CLI) | payer BC, SELFPAY ==
[2025-06-16] VITALS (8 sets, daily range): BP systolic 109–125; BP diastolic 82–88; PULSE 67–99; RESP 17–18; TEMP 36–36.7; O2SAT 96–100
[2025-06-16] MEDS: Normal Saline Flush 10 ML SYR IVP (07:49)
[2025-06-16] MEDS: Acetaminophen 325 MG TAB 650 MG PO (07:49)
[2025-06-16] MEDS: [UNRECOGNIZED DRUG - OTHER] IVPB ×2 (08:02→10:26)
[2025-06-16] MEDS: IMMUNE GLOBULIN IVPB ×2 (08:02→10:26)
[2025-06-16 08:15] LABS: HCT 41.1 % (36.0-46.0); HGB 13.3 g/dL (11.2-15.7); MCH 25.9 pg (27.0-33.0); MCHC 32.4 % (32.0-36.0); MCV 80 fL (80-95); MPV 12.4 fL (8.0-11.0); Platelet Count 343 10^3/uL (130-400); RBC 5.14 10^6/uL (3.93-5.22); RDW 14.9 % (11.7-14.6); RDW-SD 43.4 fL; WBC 7.07 10^3/uL (4.4-10.8)
[2025-06-16 08:40] LABS: BUN 13 mg/dL (9-23)
== END 2025-06-16 00:50 | disposition home or self-care (01) ==
LOC: INF 00:49
PROVIDERS: Psychiatry & Neurology Neurocritical Care; PCP Naturopath; Visit Provider Nurse Practitioner Family
DX: G70.01 Myasthenia gravis with (acute) exacerbation (principal)
CPT/HCPCS: 36415; 84520; 85027; 96365; 96366; 82565; J1561

== ENCOUNTER 2025-07-06 00:27 | Outpatient (CLI) | payer BC, SELFPAY ==
[2025-07-06] MEDS: Acetaminophen 325 MG TAB 650 MG PO (07:35)
[2025-07-06 07:54] VITALS: BP 122/85; PULSE 90; RESP 18; TEMP 36.4; O2SAT 95
[2025-07-06] MEDS: Normal Saline Flush 10 ML SYR IVP (08:12)
[2025-07-06] MEDS: IMMUNE GLOBULIN IVPB ×2 (08:12→10:20)
[2025-07-06] MEDS: [UNRECOGNIZED DRUG - OTHER] IVPB ×2 (08:12→10:20)
[2025-07-06 08:17] LABS: HCT 40.9 % (36.0-46.0); HGB 13.5 g/dL (11.2-15.7); MCH 27.2 pg (27.0-33.0); MCHC 33.0 % (32.0-36.0); MCV 82 fL (80-95); MPV 11.7 fL (8.0-11.0); Platelet Count 285 10^3/uL (130-400); RBC 4.97 10^6/uL (3.93-5.22); RDW 15.3 % (11.7-14.6); RDW-SD 45.6 fL; WBC 8.02 10^3/uL (4.4-10.8)
[2025-07-06 08:41] VITALS: BP 109/71; PULSE 77; RESP 18; TEMP 36.5; O2SAT 93
[2025-07-06 08:43] LABS: BUN 14 mg/dL (9-23)
[2025-07-06 08:55] VITALS: BP 119/86; PULSE 78; RESP 18; TEMP 36.4; O2SAT 95
[2025-07-06 09:29] VITALS: BP 127/79; PULSE 65; RESP 18; TEMP 36.6; O2SAT 95
[2025-07-06 09:54] VITALS: BP 116/74; PULSE 85; RESP 18; TEMP 36.6; O2SAT 95
== END 2025-07-06 00:28 | disposition home or self-care (01) ==
LOC: INF 00:27
PROVIDERS: Psychiatry & Neurology Neurocritical Care; PCP Naturopath; Visit Provider Nurse Practitioner Family
DX: G70.01 Myasthenia gravis with (acute) exacerbation (principal)
CPT/HCPCS: 36415; 84520; 85027; 96365; 96366; 82565; J1561

== ENCOUNTER 2025-07-26 00:07 | Outpatient (CLI) | payer BC, SELFPAY ==
[2025-07-26] VITALS (8 sets, daily range): BP systolic 106–137; BP diastolic 72–93; PULSE 57–87; RESP 12; TEMP 36.3–38.1; O2SAT 94–97
[2025-07-26] MEDS: Acetaminophen 325 MG TAB 650 MG PO (08:15)
[2025-07-26] MEDS: IMMUNE GLOBULIN IVPB ×2 (08:32→10:58)
[2025-07-26] MEDS: [UNRECOGNIZED DRUG - OTHER] IVPB ×2 (08:32→10:58)
[2025-07-26] MEDS: diphenhydrAMINE 25 MG CAP PO (11:40)
[2025-07-26] MEDS: Normal Saline 500 ML IV (12:00)
--- NOTE | 2025-07-26 14:48 | NUR.NOTE ---
Patient approached at 11:30am for vital signs re-assessment while receiving IVIG - per protocol. Patient resting comfortably, napping as she does when she has the infusion and had been all morning off and on. Temperature noted to be 100.6F - asked patient how she felt to which she reported fine. Infusion of IVIG stopped regardless. Patient reported she needed to use rest room and accompanied to do so. While in restroom, she called for the RN and patient reported itching, visible hives and redness noted around patients neck and ears. Patient accompanied to the chair, given PO Benadryl 25mg per protocol and NS bolus started. Vital signs assessed and temperature returned to normal. Hospital asked for assistance but unable to provide. Repeat vital signs noted to be stable (see vital signs intervention). Patient is a [facility] patient and they were contacted and urgently/emergently paged 3x between noon and 1300 with no response. consulted who saw patient and spoke with her around 12:40pm. Patients vital signs remained stable and she was accompanied by RN Sherice Mahoney and Rosy Joseph RN throughout entire situation. She remained alert and oriented, denied chest pain, denies shortness of breath and no wheezing throughout. Patients hives and redness notably decreased and she reported itching had mostly subsided. With the inability to get in touch with patients providers at [facility], the decision was made for her to go to the ER as she still had mild itching and hives under her breasts. Patient was agreeable, she was accompanied via wheelchair by Sherice Mahoney RN and Lachelle GATICA. Verbal report given to (triage railroad auditor). At arrival to ER patient still had #22 saline lock in her right hand. Nursing Note:
[2025-07-26] MEDS: Normal Saline Flush 10 ML SYR IVP (16:09)
== END 2025-07-26 00:08 | disposition home or self-care (01) ==
LOC: INF 00:08
PROVIDERS: PCP Naturopath; Visit Provider Nurse Practitioner Family
DX: G70.01 Myasthenia gravis with (acute) exacerbation (principal)
CPT/HCPCS: 96365; 96366; J1561

== ENCOUNTER 2025-07-26 13:26 | Emergency (ER) | payer BC, SELFPAY ==
[2025-07-26 13:32] VITALS: BP 130/89; PULSE 65; RESP 20; TEMP 36.7; O2SAT 94
[2025-07-26 13:57] VITALS: PULSE 58; RESP 10
[2025-07-26 13:59] VITALS: BP 119/100; PULSE 63; PULSE 64; RESP 16; O2SAT 96
[2025-07-26 14:00] VITALS: PULSE 61; RESP 16; O2SAT 96
--- NOTE | 2025-07-26 14:00 | ED.GENADUL_ITS ---
Discharge Plan Disposition Patient Disposition: Home Condition: Stable Discharge Details Clinical Impression: Hives Primary Care Provider: Nito Castellanos ED Provider: Adin Zendejas Home Meds and New Rx's Prescriptions: New prednisone 20 mg tablet 60 mg PO DAILY 4 Days Qty: 12 0RF Continued vit B complx 9-FA-vit C-vit E 1-60-5 mg-mg-unit Tablet 1 tab PO DAILY escitalopram oxalate 10 mg tablet 10 mg PO DAILY Patient Comments: TAKE ONE TABLET BY MOUTH DAILY UPON AWAKENING prednisone 20 mg tablet 20 mg PO DAILY Patient Comments: TAKE ONE TABLET BY MOUTH EVERY DAY THE DAY BEFORE IV-IG INFUSION PRE-MEDICATE Discharge Instructions Additional Instructions: Contact your neurologist to discuss other treatment options after you had a reaction to the IVIG infusion. If you have issues such as itching you can take Benadryl, follow dosing instructions on the packaging. If you feel more ill or have new symptoms such as severe abdominal pain or difficulty breathing return to the emergency department for reevaluation. Stand Alone Forms: Portal Information HPI General Date/Time Provider Initiated Documentation: 07/26/25 13:28 . Limitations to Documentation: no limitations . Information obtained by: patient and RN/MD . History of Present Illness 34 year old F presents to the emergency department with the chief complaint of rash, described as moderate, and is localized to the neck, chest, back and abdomen. Patient started experiencing this hour(s) (1) and it has been constant. No relieving factors improve symptom(s), No exacerbating factors reported . Patient notes no other symptoms.. Patient did receive the following treatments prior to arrival, none Related Data Home Medications ?Medication ?Instructions ?Recorded ?Confirmed vitamin B complex no.9-folic 1 tab PO DAILY 05/16/22 1 acid-vit C-vit E 1 mg-60 mg-5 unit tablet escitalopram oxalate 10 mg tablet 10 mg PO DAILY 09/0107/26/25 prednisone 20 mg tablet 20 mg PO DAILY 07/26/2506/29 prednisone 20 mg tablet 60 mg (3 x 20 mg) PO DAILY 4 days 07/26/25 #12 tabs Previous Rx's ?Medication ?Instructions ?Recorded prednisone 20 mg tablet 60 mg (3 x 20 mg) PO DAILY 4 days 07/26/25 #12 tabs Allergies Allergy/AdvReac Type Severity Reaction Status Date / Time ciprofloxacin Allergy Severe Other (See Verified 07/26/25 13:38 Comment) erythromycin base Allergy Intermediate Skin Rash Verified 07/26/25 13:38 latex Allergy Intermediate Skin Rash Verified 07/26/25 13:38 penicillin G Allergy Intermediate Skin Rash Verified 07/26/25 13:38 General Stated Complaint: Allergic ROSALES: 3 Review of Systems All systems reviewed & are unremarkable except as noted in HPI and below Constitutional Constitutional: Denies chills, Denies fever(s) and Denies weakness Cardiovascular Cardiovascular: Denies chest pain and Denies dyspnea Respiratory Respiratory: Denies cough and Denies dyspnea Gastrointestinal Gastrointestinal: Denies nausea and Denies vomiting Integumentary/Breasts Skin/Breast: Reports rash Neurologic Neurologic: Denies weakness Exam Const General: no acute distress Orientation: alert [facility] Head: normal to inspection Ears: external ears normal General nose exam: external nose normal Mouth: moist mucous membranes Eyes General: appearance normal, both eyes and all related structures Neck Neck: normal visual inspection Resp Effort & Inspection: normal respiratory effort and able to speak in complete sentences Auscultation: clear to auscultation bilaterally Cardio Rate: regular rate GI Palpation: nontender Skin Rashes: rashes noted Neuro General: patient alert and patient oriented x3 Extrem General: normal to inspection Psych Mental Status: mental status grossly normal Course Vital Signs Vital signs: Vital Signs Temperature 36.7 C 07/26/25 13:32 Pulse 65 07/26/25 13:32 Respiratory Rate 20 07/26/25 13:32 Blood Pressure 130/89 07/26/25 13:32 Pulse Oximetry 94 07/26/25 13:32 Temperature 36.7 C 07/26/25 13:32 Pulse 65 07/26/25 13:32 Respiratory Rate 20 07/26/25 13:32 Blood Pressure 130/89 07/26/25 13:32 Blood Pressure Position Sitting 07/26/25 13:32 Pulse Oximetry 94 07/26/25 13:32 Oxygen Delivery Method Room Air 07/26/25 13:32 Oxygen Flow Rate 0 07/26/25 13:32 Medical Decision Making 34-year-old female who receives IVIG infusions for myasthenia gravis and has had prior infusions without any reactions comes in after she started infusion today and developed the diffuse rash with hives. She denies ever having any difficulty breathing or abdominal pain. The infusion nurse gave her 25 mg of p.o. Benadryl which started to improve her symptoms. Infusion nurse also tried to reach out to her neurology provider to get recommendations for the patient but they did not call her back so she was sent here for evaluation. Patient is stable and states the rash is improving. She has very mild hives underneath both breasts currently, she says that they were on her neck and back as well prior to getting the Benadryl. She is no abdominal or respiratory symptoms. Suspect medication reaction, will check basic labs and give a dose of IV methylprednisolone and reassess. Patient stable, labs show no significant changes from baseline, has chronically elevated LFTs, she states she has a history of fatty liver so it is likely this. She has no abdominal tenderness so I do not feel imaging of her abdomen is indicated. I am to start her on prednisone for few more days and she will contact her neurologist to discuss different treatment options for her myasthenia. Return precautions given. Differential Diagnosis Differential Diagnosis: allergic reaction, medication reaction Lab Data Lab results reviewed: Yes I reviewed the patient's lab results. PFSH All Active Problems (Updated 07/26/25 @ 14:58 by Adin Zendejas MD) Hives (Acute) Myasthenia gravis (Chronic) Breast pain, right (Acute) Contact dermatitis (Acute) Left otitis externa (Acute) Yeast dermatitis (Acute) Cholelithiasis (Acute) Cholelithiasis (Acute) RUQ pain (Acute) Sleep disturbance (Acute) Elevated glucose tolerance test (Acute) TMJ syndrome (Chronic) Oropharyngeal dysphagia (Chronic) ADHD (attention deficit hyperactivity disorder) (Chronic) Reports she is doing well without medication in her college courses. Medical History (Updated 07/26/25 @ 14:58 by Adin Zendejas MD) (spontaneous vaginal delivery) 03/02/2021. Kahlil Palomo. Gestational diabetes mellitus (GDM) Encounter for repeat Papanicolaou smear of cervix due to previous unsatisfactory results Unsat pap 08/04/20 - discussed with patient. Will repeat PP. 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 Date GA/Weeks # Preg Succ Route Wgt Sex Labor Lgth Anesth esia Location [facility] 03/02/21 40 No vaginal 3143.962 g Female Renetta Kyle Delivery Date: 03/02/21 Last Updated by: Ivy Kyle M.D. IOL for GDM. Insulin requiring. Stacia. Transient PP BP elevation. No Rx needed.
[2025-07-26 14:01] VITALS: BP 124/88; PULSE 59; RESP 15; O2SAT 96
[2025-07-26] MEDS: methylPREDNISolone SUCC 125 MG VIAL IVP (14:09)
[2025-07-26 14:10] VITALS: PULSE 64; RESP 21
[2025-07-26 14:15] LABS: Abs Immature Grans 0.03 10^3/uL (0.0-0.06); HCT 36.4 % (36.0-46.0); HGB 11.7 g/dL (11.2-15.7); Immature Grans % 0.5 %; MCH 26.6 pg (27.0-33.0); MCHC 32.1 % (32.0-36.0); MCV 83 fL (80-95); MPV 11.9 fL (8.0-11.0); Platelet Count 250 10^3/uL (130-400); RBC 4.40 10^6/uL (3.93-5.22); RDW 15.2 % (11.7-14.6); RDW-SD 46.5 fL; WBC 6.21 10^3/uL (4.4-10.8)
[2025-07-26 14:31] LABS: ALT 117 U/L (10-49); AST 136 U/L (<34); Albumin 3.7 g/dL (3.2-5.0); Alkaline Phosphatase 107 U/L (46-116); Anion Gap 6 mmol/L (3-11); BUN 16 mg/dL (9-23); Bilirubin, Total 0.4 mg/dL (0.2-1.2); CO2 25.0 mmol/L (20.0-31.0); Calcium 8.8 mg/dL (8.3-10.6); Chloride 107 mmol/L (98-107); Glucose 90 mg/dL (74-106); Magnesium 1.8 mg/dL (1.6-2.6); Potassium 4.1 mmol/L (3.5-5.1); Sodium 138 mmol/L (136-145); Total Protein 8.9 g/dL (5.7-8.2)
== END 2025-07-26 15:04 | disposition home or self-care (01) ==
PROVIDERS: Emergency Provider Emergency Medicine; PCP Naturopath
DX: L50.9 Urticaria, unspecified (principal)
CPT/HCPCS: 99283; 99284; 36415; 96374; 80053; 83735; 85025; J2919